=== PATIENT | female | born 1940 | race Caucasian/White ===

== ENCOUNTER 2024-08-15 11:59 | Inpatient (IN) ==
[2024-08-15 12:28] LABS: Basophils # (auto) 0.12 K/uL (0.00-0.20); Basophils % (auto) 0.6 %; Eosinophils # (auto) 0.03 K/uL (0.00-0.50); Eosinophils % (auto) 0.2 %; Hematocrit (blood only) 38.5 % (37.0-47.0); Hemoglobin 12.5 g/dl (12.0-16.0); Immature Granulocytes # (auto) 0.14 K/uL (0.01-0.20); Immature Granulocytes % (auto) 0.7 %; Lymphocytes % (auto) 10.8 %; Mean Corpuscular Hemoglobin 27.7 pg (25.0-34.0); Mean Corpuscular Hgb Conc 32.5 g/dL (32.0-36.0); Mean Corpuscular Volume 85.2 fL (80.0-100.0); Mean Platelet Volume 9.9 fL (9.4-12.4); Monocytes # (auto) 1.02 K/uL (0.11-0.59); Monocytes % (auto) 5.3 %; Neutrophils # (auto) 15.98 K/uL (1.40-6.50); Neutrophils % (auto) 82.4 %; Platelet Count 289 K/uL (130-400); RDW Coefficient of Variation 14.3 % (11.5-14.5); RDW Standard Deviation 43.9 fL (36.4-46.3); Red Blood Count 4.52 M/uL (4.20-5.40); White Blood Count 19.39 K/ul (4.8-10.8)
[2024-08-15 12:40] LABS: Calcium 9.5 mg/dl (8.6-10.3); Potassium 3.6 mmol/L (3.5-5.1)
[2024-08-15] MEDS: KETOROLAC TROMETHAMINE 15 MG/ML VIAL IV ONE (13:24)
[2024-08-15] MEDS: ACETAMINOPHEN 1,000 MG/100 ML VIAL IV STA (13:24)
--- NOTE | 2024-08-15 13:32 | CT Scan Report ---
CT head/brain wo con CLINICAL HISTORY: 83 years-old Female with Fall, trauma. Acute head and neck injury status post fall TECHNIQUE: Multiple axial CT images of the head were obtained without contrast. A dose lowering tech nique was utilized adhering to the principles of ALARA. COMPARISON: CT cervical spine of same day FINDINGS: No acute intracranial hemorrhage, midline shift, intracranial mass, hydrocephalus, territorial ischem ia or abnormal extra-axial collection. Involutional changes with white matter hypodensities compatibl e with chronic microvascular ischemic disease. Chronic-appearing right cerebellar infarcts. The calvarium is intact. The paranasal sinuses, mastoid air cells, and middle ear cavities are clear . IMPRESSION: 1. No acute intracranial abnormality or calvarial fracture. 2. Involutional changes with chronic microvascular ischemic disease. 3. Chronic right cerebellar lacunar infarcts. ACT 112: Negative or not required by law. The above report was generated using voice recognition software. It may contain grammatical, syntax o r spelling errors. Electronically signed by: Jayy Krueger M.D. 08/15/2024 1:31 PM
--- NOTE | 2024-08-15 13:36 | CT Scan Report ---
CT cervical spine wo con CT DOSE: 1331.83 mGy.cm CLINICAL HISTORY: 83 years-old Female with fall, trauma. Acute head and neck injury status post trau ma COMPARISON: Head CT of same day TECHNIQUE: Multiple axial CT images of the cervical spine were obtained without contrast. A dose low ering technique was utilized adhering to the principles of ALARA. FINDINGS: Multilevel changes of the cervical spine including severe disc space narrowing at C3-C4, C4 -C5 and C5-C6 with moderate disc space narrowing at C6-C7. Moderate to severe multilevel facet arthro sis. Multilevel neural foraminal narrowing of the cervical spine, suboptimally assessed by CT. The cervical soft tissues appear unremarkable. The visualized lung apices appear clear. IMPRESSION: No acute cervical spine fracture or subluxation. ACT 112: Negative or not required by law. The above report was generated using voice recognition software. It may contain grammatical, syntax o r spelling errors. Electronically signed by: Jayy Krueger M.D. 08/15/2024 1:34 PM
--- NOTE | 2024-08-15 13:51 | Emergency Department Note ---
Impression & Plan Hip fracture, Alzheimer dementia ED Provider Note NAME: FREDERICK VASQUEZ AGE: 83 SEX: F : 1940 ARRIVES VIA: Ambulance INFORMANT: Patient, ED PROVIDER(S): Rima Mattson MD CHIEF COMPLAINT: Left hip pain HPI: This is an 83-year-old female, history of dementia presenting after someone fell on top of her. Patient notes left hip pain after this. Patient currently demented without significant ability to provide history. She complains of pain and points to her left hip. ROS: Unable to obtain PHYSICAL EXAMINATION: General: Moderate distress due to pain Head: Normocephalic and atraumatic Eyes: Normal inspection, extraocular muscles intact Ear, nose, throat: Normal external exam Neck: Normal range of motion Respiratory: lungs clear to auscultation bilaterally Cardiovascular: Regular rate/rhythm, no murmur GI: soft, nontender, Extremities internally rotated, shortened to left lower extremity Neuro: The patient awake, appropriately conversive, no focal deficits, symmetric faces Skin: Warm, dry, and intact MEDICAL DECISION MAKING: This is an 83-year-old female with history of dementia presenting after someone fell on top of her. Resident at her facility reportedly fell on top of this patient. Unclear LOC as per EMS/long-term staff. Clinically patient has an obvious hip fracture. Will do screening x-ray. Will do a chest x-ray and blood work as patient would like require operative management. -Hip x-ray as Independently interpreted by me reveals a intertrochanteric fracture of the left hip with angulation -Chest Xray independently interpreted by me showing no pneumothorax, focal opacity, or pleural effusions. -Blood reveals a leukocytosis to 19 without clear etiology. Stable electrolytes. -Patient admitted to hospital service under Dr. Lares for admission and operative repair Differential diagnosis: Hip fracture, pubic rami fracture, Diagnostics interpreted by me: ECG: None Cardiac Monitoring: An order was placed for continuous cardiac monitoring. The monitor shows a rate of 76 with sinus rhythm. Past Med/Surg History Problem List (Updated 08/15/24 @ 19:39 by Riam Mattson MD) Alzheimer dementia (Acute) Cerebellar stroke HTN (hypertension) Hip fracture (Acute) Social History Smoking Status: Unknown if ever smoked Hx Alcohol Use: No (unable to obtain) Hx Substance Use: No (unable to obtain) Preferred Language: Latvian Communication Ability: Effective Paragliding Instructor Required: No Beliefs That Will Affect Care: None Current Living Situation: Senior Care Feels Safe at Home: Yes Safety Concerns: Feels Safe At This Time Allergies Allergies Allergy/AdvReac Type Severity Reaction Status Date / Time No Known Allergies Allergy Unverified 08/15/24 14:41 Home Meds Home Medications Medication Instructions Recorded Confirmed Lexapro 12.5 mg PO DAILY 08/15/24 08/15/24 Milk of Magnesia 30 ml PO DAILY PRN Constipation 08/15/24 08/15/24 acetaminophen 325 mg tablet 650 mg PO Q6H PRN Fever 08/15/24 08/15/24 (Tylenol) acetaminophen 325 mg tablet 650 mg PO Q6H PRN Pain 08/15/24 08/15/24 (Tylenol) acetaminophen 500 mg tablet 1,000 mg PO TID 08/15/24 08/15/24 amlodipine 2.5 mg tablet 2.5 mg PO DAILY 08/15/24 08/15/24 aspirin 81 mg tablet,delayed 81 mg PO DAILY 08/15/24 08/15/24 release edxhgbi-yqrztnqowsgzw-txezfehl 250 2 tab PO Q8H PRN Headache 08/15/24 08/15/24 mg-250 mg-65 mg tablet (Headache Relief (KHH-azziyovzzrjn-dizeriwi)) bisacodyl 10 mg rectal suppository 10 mg CA DAILY PRN Constipation 08/15/24 08/15/24 cetirizine 10 mg tablet 10 mg PO DAILY 08/15/24 08/15/24 cholecalciferol (vitamin D3) 50 50 mcg PO DAILY 08/15/24 08/15/24 mcg (2,000 unit) tablet cyanocobalamin (vitamin B-12) 500 1,000 mcg PO Q48H 08/15/24 08/15/24 mcg tablet Results & Data (ED) Vital Signs Vital Signs - 24 hr 08/15/24 12:10 08/15/24 12:26 08/15/24 14:34 Temperature 36.7 C Temperature Source Axillary Pulse Rate 75 59 L Pulse Rate [Apical] 67 Respiratory Rate 18 18 Respiratory Effort / Characteristics Non-Labored Spontaneous Respiratory Depth Normal Blood Pressure 159/87 H Blood Pressure [Right Arm] 158/86 H Blood Pressure Mean 111 Blood Pressure Mean [Right Arm] 110 Blood Pressure Position Lying Blood Pressure Position [Right Arm] Lying Pulse Oximetry 96 99 Oxygen Delivery Method Room Air Room Air Sepsis Recent Fever Within 48 Hours No Sepsis New/Unexplained Change in Mental Status No Sepsis Action Taken by Nursing No Action Required Laboratory Data 08/15/24 12:10 08/15/24 12:10 Lab Results 08/15/24 Range/Units 12:10 WBC 19.39 H (4.8-10.8) K/ul RBC 4.52 (4.20-5.40) M/uL Hgb 12.5 (12.0-16.0) g/dl Hct 38.5 (37.0-47.0) % MCV 85.2 (80.0-100.0) fL MCH 27.7 (25.0-34.0) pg MCHC 32.5 (32.0-36.0) g/dL RDW Std Deviation 43.9 (36.4-46.3) fL RDW Coeff of Rajiv 14.3 (11.5-14.5) % Plt Count 289 (130-400) K/uL MPV 9.9 (9.4-12.4) fL Immature Gran % (Auto) 0.7 % Neut % (Auto) 82.4 % Lymph % (Auto) 10.8 % Fannin % (Auto) 5.3 % Eos % (Auto) 0.2 % Baso % (Auto) 0.6 % Neut # (Auto) 15.98 H (1.40-6.50) K/uL Lymph # (Auto) 2.10 (1.20-3.40) K/uL Fannin # (Auto) 1.02 H (0.11-0.59) K/uL Eos # (Auto) 0.03 (0.00-0.50) K/uL Baso # (Auto) 0.12 (0.00-0.20) K/uL Immature Gran # (Auto) 0.14 (0.01-0.20) K/uL Sodium 141 (136-145) mmol/L Potassium 3.6 (3.5-5.1) mmol/L Chloride 106 (98-107) mmol/L Carbon Dioxide 24 (21-32) mmol/L Anion Gap 11 (3-11) BUN 31 H (6-23) mg/dl Creatinine 1.00 (0.6-1.2) mg/dl Est Cr Clr Drug Dosing 39.0 ml/min eGFR 56.25 BUN/Creatinine Ratio 31.0 H (10-20) Glucose 157 H (70-99(Fasting)) mg/dl Calcium 9.5 (8.6-10.3) mg/dl Administered Medications Sodium Chloride (Nss) 1,000 mls @ 80 mls/hr IV .[id number] JODI Stop: 08/16/24 16:14 Last Admin: 08/15/24 18:33 Dose: 80 mls/hr Documented By: TBK Discontinued Medications Acetaminophen (Ofirmev) 1,000 mg in 100 mls @ 400 mls/hr IV NOW STA Stop: 08/15/24 13:29 Last Infusion: 08/15/24 14:47 Dose: Infused Documented By: Admin: 08/15/24 13:24 Dose: 400 mls/hr Documented By: TEE Ketorolac Tromethamine (Ketorolac Tromethamine 15 Mg/Ml Vial) 15 mg IV NOW ONE Stop: 08/15/24 13:16 Last Admin: 08/15/24 13:24 Dose: 15 mg Documented By: TEE Imaging Data Radiologist's Impression: Hip/Pelvis X-Ray 08/15/24 12:06 XR hip LT 2V w pelvis HISTORY: 83 years-old Female fall, hip pain acute left-sided hip pain status post fall COMPARISON: None TECHNIQUE: AP view the pelvis with 2 views of the left hip FINDINGS: Mild osteoarthritis of the hips. There is an acute comminuted, angulated and displaced left proximal femoral fracture which appears to be entirely intertrochanteric. The lesser trochanteric fracture is displaced medially several centimeters. Moderate adjacent soft tissue swelling. IMPRESSION: Acute, angulated and displaced intertrochanteric left femoral fracture. ACT 112: Negative or not required by law. The above report was generated using voice recognition software. It may contain grammatical, syntax or spelling errors. Electronically signed by: Jayy Krueger M.D. 08/15/2024 1:[address] 08/15/24 12:29 CT cervical spine wo con CT DOSE: 1331.83 mGy.cm CLINICAL HISTORY: 83 years-old Female with fall, trauma. Acute head and neck injury status post trauma COMPARISON: Head CT of same day TECHNIQUE: Multiple axial CT images of the cervical spine were obtained without contrast. A dose lowering technique was utilized adhering to the principles of ALARA. FINDINGS: Multilevel changes of the cervical spine including severe disc space narrowing at C3-C4, C4-C5 and C5-C6 with moderate disc space narrowing at C6-C7. Moderate to severe multilevel facet arthrosis. Multilevel neural foraminal narrowing of the cervical spine, suboptimally assessed by CT. The cervical soft tissues appear unremarkable. The visualized lung apices appear clear. IMPRESSION: No acute cervical spine fracture or subluxation. ACT 112: Negative or not required by law. The above report was generated using voice recognition software. It may contain grammatical, syntax or spelling errors. Electronically signed by: Jayy Krueger M.D. 08/15/2024 1:34 PM Chest X-Ray 08/15/24 12:29 XR chest 1V portable HISTORY: 83 years-old Female Screening acute chest trauma status post fall COMPARISON: CT cervical spine of same day TECHNIQUE: AP view the chest FINDINGS: Cardiac silhouette is enlarged. Mild left hemidiaphragmatic elevation with linear left basilar atelectasis versus scarring. Mild coarsening of the interstitium is likely chronic. No pneumothorax, large pleural effusion or overt pulmonary edema. Old calcified granuloma of the right lung base. Right axillary surgical clips. Chronic appearing fractures of the lateral left second through fourth ribs with age-indeterminate fracture of the lateral left fifth rib. IMPRESSION: 1. Likely chronic upper lateral left rib fractures with age-indeterminate mildly displaced lateral left fifth rib fracture. Correlate with point tenderness. 2. No pneumothorax. 3. Mild left basilar atelectasis. ACT 112: Negative or not required by law. The above report was generated using voice recognition software. It may contain grammatical, syntax or spelling errors. Electronically signed by: Jayy Krueger M.D. 08/15/2024 2:[address] 08/15/24 12:29 CT head/brain wo con CLINICAL HISTORY: 83 years-old Female with Fall, trauma. Acute head and neck injury status post fall TECHNIQUE: Multiple axial CT images of the head were obtained without contrast. A dose lowering technique was utilized adhering to the principles of ALARA. COMPARISON: CT cervical spine of same day FINDINGS: No acute intracranial hemorrhage, midline shift, intracranial mass, hydrocephalus, territorial ischemia or abnormal extra-axial collection. Involutional changes with white matter hypodensities compatible with chronic microvascular ischemic disease. Chronic-appearing right cerebellar infarcts. The calvarium is intact. The paranasal sinuses, mastoid air cells, and middle ear cavities are clear. IMPRESSION: 1. No acute intracranial abnormality or calvarial fracture. 2. Involutional changes with chronic microvascular ischemic disease. 3. Chronic right cerebellar lacunar infarcts. ACT 112: Negative or not required by law. The above report was generated using voice recognition software. It may contain grammatical, syntax or spelling errors. Electronically signed by: Jayy Krueger M.D. 08/15/2024 1:31 PM Discharge Plan Visit Data Chief Complaint: Fall Stated Complaint: FALL, L HIP PAIN ED Provider: Rima Mattson Discharge Problem: Hip fracture, Alzheimer dementia Patient Disposition: Admitted As Inpatient Discharge Instructions Interventions: ED Discharge Assessment Last Done: 08/15/24 16:43
--- NOTE | 2024-08-15 14:02 | XRay Report ---
XR chest 1V portable HISTORY: 83 years-old Female Screening acute chest trauma status post fall COMPARISON: CT cervical spine of same day TECHNIQUE: AP view the chest FINDINGS: Cardiac silhouette is enlarged. Mild left hemidiaphragmatic elevation with linear left basilar atelec tasis versus scarring. Mild coarsening of the interstitium is likely chronic. No pneumothorax, large pleural effusion or overt pulmonary edema. Old calcified granuloma of the right lung base. Right axil jayesh surgical clips. Chronic appearing fractures of the lateral left second through fourth ribs with age-indeterminate fracture of the lateral left fifth rib. IMPRESSION: 1. Likely chronic upper lateral left rib fractures with age-indeterminate mildly displaced lateral le ft fifth rib fracture. Correlate with point tenderness. 2. No pneumothorax. 3. Mild left basilar atelectasis. ACT 112: Negative or not required by law. The above report was generated using voice recognition software. It may contain grammatical, syntax o r spelling errors. Electronically signed by: Jayy Krueger M.D. 08/15/2024 2:00 PM
--- NOTE | 2024-08-15 15:22 | History & Physical Report ---
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 Discussed with family RCRI approximate 6% risk of mortality due to the history of cerebrovascular disease, and no history of ischemia/CHF/insulin treatment/creatinine. 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 (2) HTN (hypertension): Plan: Continue amlodipine (3) Cerebellar stroke: Plan: History of cerebellar stroke Noted incidentally during Alzheimer's workup. Continued on aspirin daily Patient was previously on a statin these were discontinued reportedly due to Alzheimer's several years ago (4) Alzheimer dementia: Plan: Surrogate decision maker would be patient's son Baron available at [phone]. Patient's is available at [phone], but requested decisions to be made by patient's son Baron or Sister Ann. Sister Ann is available [phone]. Patient's daughter Shani is available at [phone] DNR/DNI confirmed on admission with patient's daughter Shani Plan DVT prophylaxis: SCDs pending surgical evaluation Diet: N.p.o., IV FM CODE STATUS: DNR/DNI Disposition: MSO History of Present Illness Primary Care Provider: Theresa Macias at [facility] Marie is an 83-year-old female with a history of dementia who is not oriented to place, year, and is unable to give any meaningful history due to dementia. She presented from [facility] after another resident reportedly fell on top of her and patient had immediately pain and inability to stand on her left leg. Hip x-ray shows intertrochanteric left hip fracture History reviewed from Theresa bunch documentation. Has a history of hypertension, dementia, hyperlipidemia. She has an amlodipine for blood pressure. She takes aspirin 81 mg daily for history of cerebellar stroke. Takes Lexapro 12.5 mg once daily. She is not on any blood thinners. No history of CHF or heart disease. Discussed her care with her Cristina who currently lives in [place]. To his knowledge Castillo is generally independent without a walker or cane, but notes that the best contact he would know her best is her son Baron and Sister Ann. Son Baron is available at [phone], Sister Ann who is a nurse that lives nearby is at [phone]. Both numbers called, voicemail left however no answer at either number. Did discuss CODE STATUS with patient's Cristina, he notes that he does not feel comfortable making a decision as her son Baron, daughter Shani, or sister Ann would know her wishes much better and provided an additional number for patient's daughter [phone]. Voicemail left with each contact. Per patient's family there and in discussion with Theresa another resident had fall on top of Marie, Marie was immediately unable to bear weight on her left leg. Did not lose consciousness or hit her head. Was sent immediately to the hospital for evaluation. At bedside Marie reports that she is not sure where she is but is not in any distress and has no questions. She denies pain until she tries to move in the bed. She denies chest pain, chest pressure, shortness of breath, difficulty breathing, lightheadedness, dizziness No known history of heart disease, NC, CKD, DM, blood clots. Medical History: Reviewed Medications: Reviewed Surgical History: Reviewed Family history: Reviewed Allergies: Reviewed Social History: Former smoker. No recent alcohol use Code Status: DNR/DNI Daughter Shani called back ~1550hrs - Normally ambulatory, but with fall 1 month ago with rib fxr. Had some knee pain at the time, but is normally able to ambulate independently without a cane/walker. - Cognitively has Alzheimers. Not oriented to place, year at baseline. Recognizes family, but cannot tell their names all of the time. - No NC, no CKD, no DM. Had an occult stroke on imaging she had no symptoms from at the time, started aspirin daily at that time. Allergies Allergy/AdvReac Type Severity Reaction Status Date / Time No Known Allergies Allergy Unverified 08/15/24 14:41 Home Medications Medication Instructions Recorded Confirmed Type Lexapro 12.5 mg PO DAILY 08/15/24 08/15/24 History Milk of Magnesia 30 ml PO DAILY PRN Constipation 08/15/24 08/15/24 History acetaminophen 325 mg tablet 650 mg PO Q6H PRN Fever 08/15/24 08/15/24 History (Tylenol) acetaminophen 325 mg tablet 650 mg PO Q6H PRN Pain 08/15/24 08/15/24 History (Tylenol) acetaminophen 500 mg tablet 1,000 mg PO TID 08/15/24 08/15/24 History amlodipine 2.5 mg tablet 2.5 mg PO DAILY 08/15/24 08/15/24 History aspirin 81 mg tablet,delayed 81 mg PO DAILY 08/15/24 08/15/24 History release ghnllhf-usclebdviplmp-fqruhmbs 250 2 tab PO Q8H PRN Headache 08/15/24 08/15/24 History mg-250 mg-65 mg tablet (Headache Relief (HJT-aqwicrddkoie-hjjasddr)) bisacodyl 10 mg rectal suppository 10 mg SD DAILY PRN Constipation 08/15/24 08/15/24 History cetirizine 10 mg tablet 10 mg PO DAILY 08/15/24 08/15/24 History cholecalciferol (vitamin D3) 50 50 mcg PO DAILY 08/15/24 08/15/24 History mcg (2,000 unit) tablet cyanocobalamin (vitamin B-12) 500 1,000 mcg PO Q48H 08/15/24 08/15/24 History mcg tablet Past Med/Surg History Problem List (Updated 08/15/24 @ 15:59 by Luis Carlos Lares MD) Alzheimer dementia Cerebellar stroke HTN (hypertension) Hip fracture Social History Smoking Status: Unknown if ever smoked Hx Alcohol Use: No (unable to obtain) Hx Substance Use: No (unable to obtain) Preferred Language: Macedonian Communication Ability: Effective Capacity Planning Engineer Required: No Beliefs That Will Affect Care: None Current Living Situation: Half-Way Feels Safe at Home: Yes Physical Exam Physical Exam: General: Patient is oriented to name only. History limited by dementia HEENT: Atraumatic, normocephalic. Vision and hearing grossly intact Pulm: CTAB A&P. -wheezes, -rales, -rhonchi. Symmetrical chest rise. No increased work of breathing. No respiratory distress. Cardiac: RRR, -mrg. Radial pulses intact and symmetrical. Abdominal: Nontender, nondistended, soft. BS present. Extremities: Left leg shortened and externally rotated. Sensation soft touch in feet bilaterally, ankle dorsi/plantarflexion 5/5 bilaterally. Cap refill is intact bilaterally Results & Data Results & Data Vital Signs (Past 12 Hours) Vital Signs Temp Pulse Pulse Resp BP BP Pulse Ox 08/15/24 14:34 67 18 158/86 H 99 08/15/24 12:26 59 L 08/15/24 12:10 36.7 C 75 18 159/87 H 96 O2 Del Method 08/15/24 14:34 Room Air 08/15/24 12:26 08/15/24 12:10 Room Air PG Care Time/CCT Total # of Minutes Spent Total Time Spent with Patient: Total time spent is greater than 50% in coordination of care (as documented) at patient's floor/unit and/or counseling patient: Coding Level of Care Code 10442 INT INP/OBS CARE 75MIN Diagnoses Hip fracture S72.009A HTN (hypertension) I10 Cerebellar stroke I63.9 Alzheimer dementia G30.9; F02.80
[2024-08-15] MEDS ORDERED: ONDANSETRON INJ 2 MG/ML 2 ML VIAL IV PRN ×2 (15:57→17:52)
[2024-08-15] MEDS ORDERED: NALOXONE HCL 0.4 MG/1 ML VIAL/CARP IV PRN (16:05)
[2024-08-15] MEDS ORDERED: bisacodyL 10 MG SUPP PR PRN ×2 (16:05→17:52)
[2024-08-15] MEDS ORDERED: POLYETHYLENE (MIRALAX) 17 GM PACK PO PRN (17:52)
[2024-08-15] MEDS: SODIUM CHLORIDE 0.9% 1,000 ML IV SCH (18:33)
[2024-08-15] MEDS: ACETAMINOPHEN 500 MG TAB PO SCH (20:15)
[2024-08-15] MEDS: HYDROmorphone INJ 0.5 MG/0.5 ML SYR IV PRN (21:47)
[2024-08-16 04:36] LABS: Basophils # (auto) 0.05 K/uL (0.00-0.20); Basophils % (auto) 0.4 %; Hemoglobin 9.5 g/dl (12.0-16.0); Immature Granulocytes # (auto) 0.04 K/uL (0.01-0.20); Immature Granulocytes % (auto) 0.3 %; Lymphocytes # (auto) 1.83 K/uL (1.20-3.40); Mean Corpuscular Hgb Conc 32.8 g/dL (32.0-36.0); Mean Corpuscular Volume 85.5 fL (80.0-100.0); Mean Platelet Volume 10.2 fL (9.4-12.4); Monocytes # (auto) 1.12 K/uL (0.11-0.59); Monocytes % (auto) 9.2 %; Neutrophils # (auto) 9.14 K/uL (1.40-6.50); Neutrophils % (auto) 75.1 %; Platelet Count 230 K/uL (130-400); RDW Coefficient of Variation 14.6 % (11.5-14.5); RDW Standard Deviation 45.1 fL (36.4-46.3); Red Blood Count 3.39 M/uL (4.20-5.40); White Blood Count 12.18 K/ul (4.8-10.8)
[2024-08-16 04:45] LABS: BUN Creatinine Ratio 33.8 (10-20); Calcium 8.4 mg/dl (8.6-10.3); Creatinine Clr Calc Pharmacy 48.8 ml/min; Potassium 3.7 mmol/L (3.5-5.1)
--- NOTE | 2024-08-16 06:19 | Orthopedic Consultation ---
Date of Service August 16, 2024 Assessment & Plan (1) Hip fracture: I discussed the diagnosis and treatment options with her at bedside. I have not been able to get a hold of the family yet. She is currently NPO. I do recommend intramedullary nail fixation of the left hip mostly for pain control and for future ambulation. I will discuss this with the family. She is currently on the OR schedule for later this afternoon. History of Present Illness Reason for Consultation: Displaced left intertrochanteric hip fracture. Requesting Physician: . Attending Physician: Luis Carlos Lares MD Marie is a pleasant 83-year-old female who is currently in memory care. She had a fall yesterday at [facility] directly onto her left hip. She was having left hip pain. She was unable to bear weight. She is usually a community ambulator without assistance. She was brought to [facility] emergency room where radiographs demonstrated a displaced left proximal femur fracture. She was admitted to the hospital service. Orthopedics was consulted to evaluate and treat.. Allergies Allergy/AdvReac Type Severity Reaction Status Date / Time No Known Allergies Allergy Unverified 08/15/24 14:41 Home Medications Medication Instructions Recorded Confirmed Type Lexapro 12.5 mg PO DAILY 08/15/24 08/15/24 History Milk of Magnesia 30 ml PO DAILY PRN Constipation 08/15/24 08/15/24 History acetaminophen 325 mg tablet 650 mg PO Q6H PRN Fever 08/15/24 08/15/24 History (Tylenol) acetaminophen 325 mg tablet 650 mg PO Q6H PRN Pain 08/15/24 08/15/24 History (Tylenol) acetaminophen 500 mg tablet 1,000 mg PO TID 08/15/24 08/15/24 History amlodipine 2.5 mg tablet 2.5 mg PO DAILY 08/15/24 08/15/24 History aspirin 81 mg tablet,delayed 81 mg PO DAILY 08/15/24 08/15/24 History release qoommez-mxofcquxzhstj-edgcobii 250 2 tab PO Q8H PRN Headache 08/15/24 08/15/24 History mg-250 mg-65 mg tablet (Headache Relief (TTN-pxwonmjjegkw-bjrjpixp)) bisacodyl 10 mg rectal suppository 10 mg NC DAILY PRN Constipation 08/15/24 08/15/24 History cetirizine 10 mg tablet 10 mg PO DAILY 08/15/24 08/15/24 History cholecalciferol (vitamin D3) 50 50 mcg PO DAILY 08/15/24 08/15/24 History mcg (2,000 unit) tablet cyanocobalamin (vitamin B-12) 500 1,000 mcg PO Q48H 08/15/24 08/15/24 History mcg tablet Past Med/Surg History Problem List Alzheimer dementia (Acute) Cerebellar stroke HTN (hypertension) Hip fracture (Acute) Social History Smoking Status: Unknown if ever smoked Hx Alcohol Use: No (unable to obtain) Hx Substance Use: No (unable to obtain) Preferred Language: Swedish Communication Ability: Effective Supervisor In Charge Required: No Beliefs That Will Affect Care: None Current Living Situation: Shelter Feels Safe at Home: Yes Safety Concerns: Feels Safe At This Time Review of Systems All systems reviewed & are unremarkable except as noted in HPI & below. Physical Exam On physical exam the left hip, the hip is shortened and externally rotated. She has pain with logroll of the left hip.. Constitutional WD/WN, vitals as above Eyes PERRL, conjunctivae normal, anicteric sclerae ENMT external ear and nose normal, oropharynx normal Neck trachea midline, no thyromegaly Respiratory normal respiratory effort Cardiovascular RRR, no murmur, no edema Gastrointestinal (Abdomen) normal bowel sounds, soft, nontender, no hepatosplenomegaly Psychiatric A+Ox3, euthymic affect Results & Data Results & Data Laboratory Results . Diagnostic Findings X-rays of the left hip do show a displaced left intertrochanteric hip fracture with some subtrochanteric extension.. PG Care Time/CCT Total # of Minutes Spent Total Time Spent with Patient: Total time spent is greater than 50% in coordination of care (as documented) at patient's floor/unit and/or counseling patient: Coding Level of Care Code 16430 IN/OBS CONSULT LVL 4,60M (57 - DECISION FOR SURGERY) Diagnoses Hip fracture S72.009A
--- NOTE | 2024-08-16 07:33 | Anesthesiology Consultation ---
Date of Service August 16, 2024 History Surgery Operation Date: 08/16/24 10:25 Proposed Procedures p Left Troch Nail - Darren Contreras, DO Height/Weight Height: 5 ft 5 in Weight: 58.4 kg Allergies Allergy/AdvReac Type Severity Reaction Status Date / Time No Known Allergies Allergy Unverified 08/15/24 14:41 Medications Home Medications Medication Instructions Recorded Confirmed Last Taken Lexapro 12.5 mg PO DAILY 08/15/24 08/15/24 Unknown Milk of Magnesia 30 ml PO DAILY PRN Constipation 08/15/24 08/15/24 Unknown acetaminophen 325 mg tablet 650 mg PO Q6H PRN Fever 08/15/24 08/15/24 Unknown (Tylenol) acetaminophen 325 mg tablet 650 mg PO Q6H PRN Pain 08/15/24 08/15/24 Unknown (Tylenol) acetaminophen 500 mg tablet 1,000 mg PO TID 08/15/24 08/15/24 Unknown amlodipine 2.5 mg tablet 2.5 mg PO DAILY 08/15/24 08/15/24 Unknown aspirin 81 mg tablet,delayed 81 mg PO DAILY 08/15/24 08/15/24 Unknown release rjurtft-gyuitihbvajao-hsxfbvkq 250 2 tab PO Q8H PRN Headache 08/15/24 08/15/24 Unknown mg-250 mg-65 mg tablet (Headache Relief (MKY-ipfkauflpula-tkxjdyza)) bisacodyl 10 mg rectal suppository 10 mg FL DAILY PRN Constipation 08/15/24 08/15/24 Unknown cetirizine 10 mg tablet 10 mg PO DAILY 08/15/24 08/15/24 Unknown cholecalciferol (vitamin D3) 50 50 mcg PO DAILY 08/15/24 08/15/24 Unknown mcg (2,000 unit) tablet cyanocobalamin (vitamin B-12) 500 1,000 mcg PO Q48H 08/15/24 08/15/24 Unknown mcg tablet Active Medications Generic Name Dose Route Start Last Admin Trade Name Freq PRN Reason Stop Dose Admin Acetaminophen 1,000 mg 08/15/24 21:00 08/15/24 20:15 Acetaminophen 500 Mg Tab PO 08/22/24 20:59 Not Given TID JODI Hydromorphone HCl 0.5 mg 08/15/24 15:57 08/15/24 21:47 Hydromorphone Inj 0.5 Mg/0.5 Ml Syr IV 08/29/24 15:56 0.5 mg Q3H PRN Administration breakthrough pain Sodium Chloride 1,000 mls @ 80 mls/hr 08/15/24 16:15 08/16/24 05:26 Nss IV 08/16/24 16:14 80 mls/hr .[id number] JODI Administration Past Medical History Medical History (Updated 08/16/24 @ 07:34 by Shad Jefferson MD) Anemia Alzheimer dementia Cerebellar stroke HTN (hypertension) Past Surgical History Surgical History (Updated 08/16/24 @ 07:34 by Shad Jefferson MD) No pertinent past surgical history Social History Smoking Status: Unknown if ever smoked Hx Alcohol Use: No (unable to obtain) Hx Substance Use: No (unable to obtain) Physical Exam Vital Signs Last Vital Signs Temp 36.7 C 08/16/24 07:24 Pulse 82 08/16/24 07:24 Resp 16 08/16/24 07:24 BP 168/80 H 08/16/24 07:24 Pulse Ox 94 08/16/24 07:24 O2 Del Method Room Air 08/16/24 07:24 Testing Laboratory Results 08/16/24 04:05 08/16/24 04:05 Blood Type B Positive 08/16/24 04:05 Antibody Screen NEGATIVE 08/16/24 04:05 Chest X-Ray Date: 08/15/24 likely old rib fracture - no pneumothorax
[2024-08-16] MEDS: ACETAMINOPHEN 325 MG TAB PO PRN (12:30)
[2024-08-16] MEDS: amLODIPine BESYLATE 5 MG TAB PO SCH (12:30)
--- NOTE | 2024-08-16 13:47 | Hospitalist Progress Note ---
Date of Service August 16, 2024 Assessment & Plan (1) Hip fracture: Plan: Patient presented to the ER on 08/16 after another resident reportedly fell on her at a memory [facility]. Left hip x-ray: angulated intertrochanteric left hip fracture. Cervical spine CT: negative CXR: likely chronic upper lateral left rib fractures w/ age-indeterminate mildly displaced lateral left 5th rib fx. no pneumothorax. mild basilar atelectasis Head CT: negative. Orthopedics consulted, recommendation of surgery to discuss w/ family patient currently NPO RCRI approximate 6% risk of mortality due to the history of cerebrovascular disease, and no history of ischemia/CHF/insulin treatment/creatinine. 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 Pain control w/ Tylenol, Dilaudid Zofran prn for nausea/vomiting Connelly in plae CBC reviewed 08/16: leukocytosis of 12.18 (improved from admission), hgb 9.5 BMP reviewed 08/16: electrolytes, kidney function stable. AM CBC, BMP (2) Alzheimer dementia: Plan: Surrogate decision maker would be patient's son Baron available at [phone]. Patient's is available at [phone], but requested decisions to be made by patient's son Baron or Sister Ann. Sister Ann is available [phone]. Patient's daughter Shani is available at [phone] DNR/DNI confirmed on admission with patient's daughter Shani Plan Chronic conditions: HTN: continue amlodipine Hx of stroke: continue ASA daily DVT prophylaxis: SCDs pending surgical evaluation Diet: N.p.o., IV FM CODE STATUS: DNR/DNI Disposition: MSO Discussed w/ daughter at time of encounter. Admission and Anticipated Discharge Date Admission Date: August 15, 2024 Subjective Patient seen and examined w/ daughter at bedside. Patient pleasantly confused. She denied any pain and appeared comfortable at time of my encounter Physical Exam 2 Constitutional: WD/WN, vitals as above Eyes: PERRL, conjunctivae normal, anicteric sclerae Respiratory: breathing unlabored Cardiovascular: well perfused Psychiatric: pleasantly demented Results & Data Results & Data Vital Signs (Past 12 Hours) Vital Signs Temp Pulse Resp BP Pulse Ox O2 Del Method 08/16/24 08:00 Room Air 08/16/24 07:24 36.7 C 82 16 168/80 H 94 Room Air Laboratory Results 08/16/24 04:05 08/16/24 04:05 PG Care Time/CCT Total # of Minutes Spent Total Time Spent with Patient: Total time spent is greater than 50% in coordination of care (as documented) at patient's floor/unit and/or counseling patient: Coding Level of Care Code 94123 SUB INP/OBS CARE 2/35MIN Diagnoses Hip fracture S72.009A Alzheimer dementia G30.9; F02.80
[2024-08-16] MEDS ORDERED: PROPOFOL IV EMULSION 10 MG/ML 20 ML VIAL IV ONE (14:48)
[2024-08-16] MEDS: ACETAMINOPHEN 500 MG TAB PO SCH (14:49)
[2024-08-16] MEDS ORDERED: fentaNYL citrate PF 100 MCG/2 ML VIAL ONE (14:52)
[2024-08-16] MEDS ORDERED: PHENYLEPHRINE HCL 10 MG/ML VIAL ONE (14:57)
--- NOTE | 2024-08-16 15:17 | History & Physical Bridge Note ---
Date of Service August 16, 2024 History & Physical Bridge Note I have examined the patient, reviewed the History & Physical and in the interval since the performance of the History & Physical I have noted the following changes of clinical significance: no changes noted
[2024-08-16] MEDS ORDERED: LIDOCAINE 2% 2 ML VIAL/AMP(20MG/ML) INFIL ONE (16:13)
[2024-08-16] MEDS ORDERED: ONDANSETRON INJ 2 MG/ML 2 ML VIAL ONE ×2 (16:13→19:06)
[2024-08-16] MEDS ORDERED: ePHEDrine sulfate 50 MG/ML AMP IV PRN (16:17)
[2024-08-16] MEDS ORDERED: ATROPINE SULFATE 0.1 MG/ML 10ML SYR IV PRN (16:17)
[2024-08-16] MEDS ORDERED: ONDANSETRON INJ 2 MG/ML 2 ML VIAL IV PRN (16:17)
--- NOTE | 2024-08-16 17:10 | Electrocardiogram Report ---
Test Reason : Blood Pressure : */* mmHG Vent. Rate : 63 BPM Atrial Rate : 63 BPM P-R Int : 140 ms QRS Dur : 136 ms QT Int : 480 ms P-R-T Axes : 77 50 24 degrees QTcB Int : 491 ms Normal sinus rhythm Right bundle branch block Abnormal ECG No previous ECGs available Confirmed by Ty Paul ([id number]) on 08/16/2024 5:10:11 PM Referred By: [facility] Confirmed By: Ty Paul
[2024-08-16] MEDS: CHOLECALCIFEROL 25 MCG (1000 UNITS) TAB PO SCH (17:18)
[2024-08-16] MEDS: ESCITALOPRAM OXALATE 10 MG TAB PO SCH (17:18)
[2024-08-16] MEDS: CYANOCOBALAMIN (B-12) 500 MCG TABLET PO SCH (17:18)
[2024-08-16] MEDS: CETIRIZINE HCL 10 MG TABLET PO SCH (17:18)
[2024-08-16] MEDS: ceFAZolin 2000MG 2,000 MG/15 ML SYR IV ONE (17:49)
[2024-08-16] MEDS: ceFAZolin 2,000 MG/15 ML IV PUSH IV ONE (17:50)
[2024-08-16] MEDS ORDERED: GLYCOPYRROLATE 0.2 MG/ML VIAL ONE (19:06)
[2024-08-16] MEDS ORDERED: DEXAMETHASONE SOD INJ 4 MG/ML VIAL ONE (19:06)
[2024-08-16] MEDS: BUPIVACAINE/EPINEPHRINE 0.25% 1:200,000 30 ML VIAL ONE (19:32)
[2024-08-16] MEDS: fentaNYL citrate PF 100 MCG/2 ML VIAL IV PRN (20:31)
--- NOTE | 2024-08-16 20:46 | Operative Report ---
PG Post Operative Report Pre & Post Diagnosis Operation Date: 08/16/24 10:25 Pre-Op Diagnosis: Displaced left intertrochanteric hip fracture Post-Op Diagnosis: Displaced left intertrochanteric hip fracture I identified the patient and participated in the time-out.: Yes Procedure Operation Date: 08/16/24 10:25 Actual Procedures p Intramedullary Nail Fixation Left Hip(Left) - Darren Contreras DO Surgeon Darren Contreras DO Shovel Engineer None Estimated Blood Loss 100 Findings Consistent with Post-Op Diagnosis Specimens None Description of Procedure On August 16, 2024 Marie was brought down from her hospital room to the preoperative holding area. The operative extremity identified and signed. She was given a preoperative antibiotic. She was taken back the operating room and placed under general anesthesia on the hospital bed. She was then transferred to the fracture table. The left hip was brought out to traction. Fluoroscopic images were used to try to reduce the hip. I was unable to get acceptable alignment with pure traction. The left hip was then prepped and draped sterile fashion. A timeout was done. The patient and the operative extremity were properly identified. A longitudinal incision was made just over the greater trochanter. Dissection was taken down through the fascia. The fracture site was exposed. A clamp was used to reduce the fracture. Once the fracture was reduced, a guidepin was placed from the tip of the greater trochanter and advanced into the femoral canal. Appropriate placement of the pin was checked on orthogonal fluoroscopic images. A 16mm opening reamer was used to open the femoral canal. A Synthes 10 mm short TFN nail was then impacted into place. Appropriate placement was checked under x-ray. A small lateral incision was made and a cannula was advanced for the helical blade. A guidepin was then placed into the center center position of the femoral head. The lateral cortex was drilled. A helical blade was then impacted into place. The helical blade was then statically locked. A single distal locking screw was then placed. Final fluoroscopic images showed anatomic alignment of the fracture and good alignment of the hardware. The wounds were then irrigated. The deep fascial layer was closed with #1 Vicryl. Deep fat layer was closed with 2-0 Vicryl. Skin was closed with 2-0 Vicryl and zenaida. She was then placed in a soft dressing. She was then extubated and transferred back to a hospital bed. She was taken to the postanesthesia care unit in stable condition. She tolerated the procedure well. I attest to the content of the Intraoperative Record and any orders documented therein. Any exceptions are noted below.
--- NOTE | 2024-08-16 20:57 | Anesthesiology Progress Note ---
Date of Service August 16, 2024 Anesthesia Post Procedure Vital Signs Vital Signs: Temp Pulse Pulse Resp BP BP Pulse Ox 08/16/24 20:50 92 H 19 139/80 93 08/16/24 20:40 87 17 134/84 95 08/16/24 20:30 97.2 F L 95 H 24 124/98 95 08/16/24 20:20 102 H 19 118/73 98 08/16/24 20:10 109 H 21 135/79 98 08/16/24 20:02 97.7 F 106 H 15 139/94 94 08/16/24 15:00 98.4 F 72 18 178/92 H 94 08/16/24 08:00 08/16/24 07:24 98.1 F 82 16 168/80 H 94 O2 Del Method O2 Flow Rate 08/16/24 20:50 Nasal Cannula 2 08/16/24 20:40 Nasal Cannula 2 08/16/24 20:30 Nasal Cannula 2 08/16/24 20:20 Oxymask 5 08/16/24 20:10 Oxymask 5 08/16/24 20:02 Oxymask 5 08/16/24 15:00 Room Air 08/16/24 08:00 Room Air 08/16/24 07:24 Room Air Transfer of Care Handoff Completed per policy Notes Mental Status: alert / awake / arousable and participated in evaluation Patient Amnestic to Procedure: Yes Nausea / Vomiting: adequately controlled Pain: adequately controlled Airway Patency, RR, SpO2: stable & adequate BP & HR: stable & adequate Hydration State: stable & adequate Anesthetic Complications: no major complications apparent and Pt Satisfied with anesthetic care
[2024-08-16] MEDS: fentaNYL citrate PF 100 MCG/2 ML VIAL ONE (21:34)
[2024-08-16] MEDS: APIXABAN 2.5 MG TAB PO SCH (21:40)
[2024-08-16] MEDS: ceFAZolin 2000MG 2,000 MG/15 ML SYR IV SCH (23:18)
--- NOTE | 2024-08-17 06:49 | Orthopedic Progress Note ---
Date of Service August 17, 2024 Assessment & Plan (1) Hip fracture: Overall she is doing as well as expected. She is on Eliquis for DVT prophylaxis. She can be weightbearing as tolerated on the left hip. She will be seen by physical therapy today. She is orthopedically stable for discharge when medically ready. Full orthopedic discharge instructions were placed in the discharge summary. Subjective Marie was seen and examined at bedside this morning. Overall she is doing fairly well. She has advanced dementia and she seemed awake and alert but she was unaware she had her hip fixed yesterday. She had no acute events overnight.. Review of Systems All systems reviewed & are unremarkable except as noted in HPI & below. Physical Exam On physical exam of the left hip, the dressing is clean and dry. Her leg is out full extension.. Results & Data Results & Data Laboratory Results . Diagnostic Findings . PG Care Time/CCT Total # of Minutes Spent Total Time Spent with Patient: Total time spent is greater than 50% in coordination of care (as documented) at patient's floor/unit and/or counseling patient: Coding Level of Care Code 84485 Post Operative Follow-Up Diagnoses Hip fracture S72.009A
--- NOTE | 2024-08-17 07:36 | Fluoroscopy Report ---
FL hip LT 2-3V CLINICAL HISTORY: LT TROCH NAILacute left hip fracture COMPARISON STUDY: Radiograph 08/15/2024 FLUOROSCOPY TIME: 74.8 seconds FLUOROSCOPY IMAGES: 5 EXPOSURE DOSE: 19.20 mGy FINDINGS: Status post placement of an intertrochanteric nail with medullary renee fixating the acute co mminuted proximal femoral fracture. IMPRESSION: Fluoroscopic assistance as above. ACT 112: Negative or not required by law. Electronically signed by: Jayy Krueger M.D. 08/17/2024 7:35 AM
[2024-08-17 12:37] LABS: Basophils # (auto) 0.05 K/uL (0.00-0.20); Basophils % (auto) 0.3 %; Hematocrit (blood only) 23.8 % (37.0-47.0); Hemoglobin 7.6 g/dl (12.0-16.0); Immature Granulocytes # (auto) 0.09 K/uL (0.01-0.20); Immature Granulocytes % (auto) 0.6 %; Lymphocytes # (auto) 1.34 K/uL (1.20-3.40); Lymphocytes % (auto) 8.4 %; Mean Corpuscular Hgb Conc 31.9 g/dL (32.0-36.0); Mean Corpuscular Volume 87.8 fL (80.0-100.0); Mean Platelet Volume 10.4 fL (9.4-12.4); Monocytes # (auto) 1.66 K/uL (0.11-0.59); Monocytes % (auto) 10.4 %; Neutrophils # (auto) 12.75 K/uL (1.40-6.50); Neutrophils % (auto) 80.3 %; Platelet Count 193 K/uL (130-400); RDW Coefficient of Variation 14.7 % (11.5-14.5); RDW Standard Deviation 47.4 fL (36.4-46.3); Red Blood Count 2.71 M/uL (4.20-5.40); White Blood Count 15.89 K/ul (4.8-10.8)
[2024-08-17] MEDS: oxyCODONE HCL IR 5 MG TAB (IMMEDIATE RELEASE) PO PRN (12:41)
[2024-08-17 13:00] LABS: RBC Morphology Unremarkable
[2024-08-17 13:06] LABS: Calcium 8.4 mg/dl (8.6-10.3); Creatinine Clr Calc Pharmacy 37.5 ml/min
--- NOTE | 2024-08-17 14:52 | Hospitalist Progress Note ---
Date of Service August 17, 2024 Assessment & Plan (1) Hip fracture: Plan: Patient presented to the ER on 08/16 after another resident reportedly fell on her at a memory detention. Age-related osteoporosis w/ current pathological fracture, left femur Left hip x-ray: angulated intertrochanteric left hip fracture. Cervical spine CT: negative CXR: likely chronic upper lateral left rib fractures w/ age-indeterminate mildly displaced lateral left 5th rib fx. no pneumothorax. mild basilar atelectasis Head CT: negative. Orthopedics consulted s/p intramedullary nail fixation of left hip with Dr. Contreras on 08/16 Scheulded Tylenol, prn Oxycodone 1st line, IV pain medication for severe pain. Zofran prn for nausea/vomiting Connelly in place CBC reviewed 08/17: hgb 7.6, WBC 15.89, likely post operative BMP reviewed 08/17: electrolytes, kidney function stable. PT/OT recommending rehab, referrals made to [facility]. AM CBC, BMP (2) Alzheimer dementia: Plan: Surrogate decision maker would be patient's son Baron available at [phone]. Patient's is available at [phone], but requested decisions to be made by patient's son Baron or Sister Ann. Sister Ann is available [phone]. Patient's daughter Shani is available at [phone] DNR/DNI confirmed on admission with patient's daughter Shani Plan Chronic conditions: HTN: continue amlodipine Hx of stroke: continue ASA daily DVT prophylaxis: Eliquis BID Diet: N.p.o., IV FM CODE STATUS: DNR/DNI Disposition: MSO Admission and Anticipated Discharge Date Admission Date: August 15, 2024 Subjective Patient seen and examined this morning. Patient demented and tearful at time of encounter. she was complaining about pain around her IV site. Pain medication was given. She was sitting in her chair at time of encounter. Physical Exam Constitutional: WD/WN, vitals as above Eyes: PERRL, conjunctivae normal, anicteric sclerae Respiratory: breathing unlabored Cardiovascular: well perfused Psychiatric: tearful, demented Results & Data Results & Data Vital Signs (Past 12 Hours) Vital Signs Temp Pulse Resp BP BP Pulse Ox O2 Del Method 08/17/24 11:23 36.3 C L 60 18 94/62 L 93 Room Air 08/17/24 08:17 36.6 C 68 18 139/73 93 Nasal Cannula 08/17/24 07:30 Nasal Cannula 08/17/24 04:20 36.6 C 73 18 101/57 L 97 Nasal Cannula O2 Flow Rate 08/17/24 11:23 08/17/24 08:17 2 08/17/24 07:30 2 08/17/24 04:20 2 PG Care Time/CCT Total # of Minutes Spent Total Time Spent with Patient: Total time spent is greater than 50% in coordination of care (as documented) at patient's floor/unit and/or counseling patient: Coding Level of Care Code 29410 SUB INP/OBS CARE 2/35MIN Diagnoses Hip fracture S72.009A Alzheimer dementia G30.9; F02.80
[2024-08-17] MEDS: ACETAMINOPHEN 500 MG TAB PO SCH (18:10)
[2024-08-17] MEDS ORDERED: ASPIRIN 81 MG ECTAB PO SCH (21:00)
--- NOTE | 2024-08-18 06:03 | Orthopedic Progress Note ---
Date of Service August 18, 2024 Assessment & Plan (1) Hip fracture: Overall she is doing as well as expected. She can be weightbearing as tolerated on the left hip. She is on Eliquis for DVT prophylaxis. The nursing staff can change her dressing today. She is orthopedically stable for discharge when medi nataly ready. Full orthopedic discharge instructions were placed in the discharge summary. Subjective Marie was seen and examined at bedside this morning. She seems to be doing okay. She is not having much pain in the left hip. She has no new complaints.. Review of Systems All systems reviewed & are unremarkable except as noted in HPI & below. Physical Exam On physical exam of the left hip, the dressing is clean and dry. Her leg is out full extension.. Results & Data Results & Data Laboratory Results . Diagnostic Findings . PG Care Time/CCT Total # of Minutes Spent Total Time Spent with Patient: Total time spent is greater than 50% in coordination of care (as documented) at patient's floor/unit and/or counseling patient: Coding Level of Care Code 99487 Post Operative Follow-Up Diagnoses Hip fracture S72.009A
[2024-08-18 07:13] LABS: BUN Creatinine Ratio 28.7 (10-20); Calcium 8.3 mg/dl (8.6-10.3); Potassium 3.7 mmol/L (3.5-5.1)
[2024-08-18 07:18] LABS: Hematocrit (blood only) 19.1 % (37.0-47.0); Hemoglobin 6.3 g/dl (12.0-16.0); Mean Corpuscular Hemoglobin 28.1 pg (25.0-34.0); Mean Corpuscular Volume 85.3 fL (80.0-100.0); Mean Platelet Volume 10.6 fL (9.4-12.4); Platelet Count 180 K/uL (130-400); RDW Coefficient of Variation 14.6 % (11.5-14.5); RDW Standard Deviation 45.4 fL (36.4-46.3); Red Blood Count 2.24 M/uL (4.20-5.40); White Blood Count 14.21 K/ul (4.8-10.8)
[2024-08-18 07:30] LABS: Basophils # (auto) 0.07 K/uL (0.00-0.20); Basophils % (auto) 0.5 %; Eosinophils # (auto) 0.07 K/uL (0.00-0.50); Eosinophils % (auto) 0.5 %; Immature Granulocytes # (auto) 0.07 K/uL (0.01-0.20); Immature Granulocytes % (auto) 0.5 %; Lymphocytes # (auto) 2.82 K/uL (1.20-3.40); Lymphocytes % (auto) 19.8 %; Monocytes # (auto) 1.89 K/uL (0.11-0.59); Monocytes % (auto) 13.3 %; Neutrophils # (auto) 9.29 K/uL (1.40-6.50); Neutrophils % (auto) 65.4 %; Polychromasia 1+
[2024-08-18] MEDS ORDERED: SODIUM CHLORIDE 0.9% 50 ML IV PRN (08:12)
[2024-08-18] MEDS ORDERED: SODIUM CHLORIDE 0.9% 100 ML IV PRN (08:12)
--- NOTE | 2024-08-18 10:00 | CT Scan Report ---
CT abd pelvis wo con CLINICAL HISTORY: anemia, recent hip fx/surgery TECHNIQUE: Helical axial images of the abdomen and pelvis were obtained. Automated dose lowering tech niques and/or adjustment according to patient size were utilized for this exam. This exam was perfor med without intravenous contrast. CT DOSE: 867.18 mGy.cm COMPARISON: None available at the time of this dictation. FINDINGS: Exam is limited by patient positioning. Lower chest: Bibasilar atelectasis versus scarring is seen. Liver: Unremarkable. No focal lesions are seen. Gallbladder and biliary tree: No calcified gallstones. Normal caliber wall. No intra- or extrahepatic biliary ductal dilation. Pancreas: Unremarkable, no focal lesions. 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 Adrenals: Unremarkable. Kidneys and ureters: Unremarkable. Bladder: Connelly catheter is seen. Reproductive organs: Unremarkable. Bowel: Diverticulosis is seen without evidence of diverticulitis. Lymph nodes Retroperitoneal: Subcentimeter lymph nodes are noted. Pelvic: Unremarkable. Mesenteric: Unremarkable. Peritoneum: Normal. Vessels: Mild atherosclerosis is seen. Hypodensity the blood pool is seen compatible with history of anemia. Abdominal wall: Unremarkable. Bones: Postsurgical changes of left hip fixation status post fracture. There is surrounding subcutane ous emphysema and soft tissue swelling and a few scattered comminuted fragments. IMPRESSION: Expected postoperative appearance of left hip status post open reduction internal fixation. No eviden ce of intraperitoneal hemorrhage or other acute hemorrhage. ACT 112: Negative or not required by law. Electronically signed by: Derek Springer M.D. 08/18/2024 9:58 AM
[2024-08-18 14:53] LABS: Hematocrit (blood only) 26.2 % (37.0-47.0); Hemoglobin 8.6 g/dl (12.0-16.0); Mean Corpuscular Hemoglobin 27.6 pg (25.0-34.0); Mean Corpuscular Hgb Conc 32.8 g/dL (32.0-36.0); Mean Platelet Volume 10.1 fL (9.4-12.4); Platelet Count 193 K/uL (130-400); RDW Coefficient of Variation 14.6 % (11.5-14.5); Red Blood Count 3.12 M/uL (4.20-5.40)
--- NOTE | 2024-08-18 15:59 | Hospitalist Progress Note ---
Date of Service August 18, 2024 Assessment & Plan (1) Hip fracture: Plan: Patient presented to the ER on 08/16 after another resident reportedly fell on her at a [facility]. Age-related osteoporosis w/ current pathological fracture, left femur Left hip x-ray: angulated intertrochanteric left hip fracture. Cervical spine CT: negative CXR: likely chronic upper lateral left rib fractures w/ age-indeterminate mildly displaced lateral left 5th rib fx. no pneumothorax. mild basilar atelectasis Head CT: negative. Orthopedics consulted - s/p intramedullary nail fixation of left hip with Dr. Contreras on 08/16 Scheduled Tylenol, prn Oxycodone 1st line, IV pain medication for severe pain. Zofran prn for nausea/vomiting Connelly in place CBC reviewed 08/18: hgb 6.3, WBC 15.00 consent for blood obtained from patient's son, Baron via phone 08/18 s/p 1 unit PRBCs w/ improvement of hgb to 8.6 Eliquis currently on hold BMP reviewed 08/17: creatinine 1.50, rise likely from acute anemia. CTAP w/o contrast 08/18 reviewed - no hematoma or hemorrhage PT/OT recommending rehab. AM CBC, BMP (2) Alzheimer dementia: Plan: Surrogate decision maker would be patient's son Baron available at [phone]. Patient's is available at [phone], but requested decisions to be made by patient's son Baron or Sister Ann. Sister Ann is available [phone]. Patient's daughter Shani is available at [phone] DNR/DNI confirmed on admission with patient's daughter Shani Plan Chronic conditions: HTN: continue amlodipine Hx of stroke: continue ASA daily DVT prophylaxis: hold due to anemia Diet: regular CODE STATUS: DNR/DNI Disposition: MSO anticipate discharge within the next few days pending stabilization of anemia. Admission and Anticipated Discharge Date Admission Date: August 15, 2024 Subjective Patient seen and examined this morning. Patient drowsy at time of encounter. She was receiving a unit of blood. She denied any complaints. Physical Exam Constitutional: WD/WN, vitals as above Eyes: PERRL, conjunctivae normal, anicteric sclerae Musculoskeletal: left dressing over incision site in place. No drainage observed through bandage. Results & Data Results & Data Vital Signs (Past 12 Hours) Vital Signs Temp Pulse Pulse Pulse Resp BP BP 08/18/24 14:48 36.7 C 65 16 08/18/24 12:18 36.7 C 61 16 118/69 08/18/24 11:27 37.4 C 60 16 110/52 L 08/18/24 11:18 37.4 C 62 18 108/56 L 08/18/24 10:46 36.5 C 60 15 113/63 08/18/24 10:16 36.8 C 64 14 99/59 L 08/18/24 10:15 36.8 C 64 14 99/59 L 08/18/24 10:01 36.9 C 63 18 97/59 L 08/18/24 09:41 36.3 C L 72 18 105/60 08/18/24 09:21 36.8 C 70 16 92/51 L 08/18/24 07:41 36.5 C 65 18 110/74 08/18/24 07:30 BP Pulse Ox O2 Del Method 08/18/24 14:48 106/62 93 Room Air 08/18/24 12:18 93 08/18/24 11:27 93 Room Air 08/18/24 11:18 94 08/18/24 10:46 93 08/18/24 10:16 93 08/18/24 10:15 93 08/18/24 10:01 92 08/18/24 09:41 94 08/18/24 09:21 95 08/18/24 07:41 92 Room Air 08/18/24 07:30 Room Air PG Care Time/CCT Total # of Minutes Spent Total Time Spent with Patient: Total time spent is greater than 50% in coordination of care (as documented) at patient's floor/unit and/or counseling patient: Coding Level of Care Code 40397 SUB INP/OBS CARE 2/35MIN Diagnoses Hip fracture S72.009A Alzheimer dementia G30.9; F02.80
[2024-08-19 04:44] LABS: Hematocrit (blood only) 23.8 % (37.0-47.0); Hemoglobin 7.9 g/dl (12.0-16.0); Mean Corpuscular Hemoglobin 27.8 pg (25.0-34.0); Mean Corpuscular Hgb Conc 33.2 g/dL (32.0-36.0); Mean Corpuscular Volume 83.8 fL (80.0-100.0); Mean Platelet Volume 9.8 fL (9.4-12.4); Platelet Count 201 K/uL (130-400); RDW Coefficient of Variation 14.8 % (11.5-14.5); RDW Standard Deviation 45.7 fL (36.4-46.3); Red Blood Count 2.84 M/uL (4.20-5.40); White Blood Count 14.04 K/ul (4.8-10.8)
[2024-08-19 05:13] LABS: BUN Creatinine Ratio 32.5 (10-20); Calcium 7.8 mg/dl (8.6-10.3); Creatinine Clr Calc Pharmacy 48.8 ml/min; Potassium 3.7 mmol/L (3.5-5.1)
[2024-08-19 13:12] LABS: Hematocrit (blood only) 27.7 % (37.0-47.0); Mean Corpuscular Hemoglobin 27.4 pg (25.0-34.0); Mean Corpuscular Hgb Conc 32.5 g/dL (32.0-36.0); Mean Corpuscular Volume 84.2 fL (80.0-100.0); Mean Platelet Volume 9.9 fL (9.4-12.4); Platelet Count 258 K/uL (130-400); RDW Standard Deviation 46.2 fL (36.4-46.3); Red Blood Count 3.29 M/uL (4.20-5.40); White Blood Count 13.76 K/ul (4.8-10.8)
--- NOTE | 2024-08-19 14:52 | Hospitalist Progress Note ---
Date of Service August 19, 2024 Assessment & Plan (1) Anemia: Plan: Acute blood loss anemia Patient required 1 unit PRBC's on 08/18 following surgery. CTAP 08/18 without hematoma or hemorrhage Patient placed on Eliquis following surgery, currently on hold. CBC reviewed 08/19: hgb 7.9 this AM w/ improvement to 9.0 in afternoon. Leukocytosis improving (13.76) BMP reviewed 08/19: creatinine 0.80, improved. NORM likely due to anemia, appears to have resolved following PRBC Discussed w/ CM 08/19 that if pt hgb remains stable, she may be discharged to rehab 08/20. AM CBC, BMP (2) HTN (hypertension): Plan: Patient w/ hx of HTN on amlodipine 2.5mg PO daily outpatient. Patient has been normotensive - hypotension throughout hospital stay amlodipine currently on hold, continue to monitor pressures. (3) Hip fracture: Plan: Patient presented to the ER on 08/16 after another resident reportedly fell on her at a [facility]. Age-related osteoporosis w/ current pathological fracture, left femur Left hip x-ray: angulated intertrochanteric left hip fracture. Cervical spine CT: negative CXR: likely chronic upper lateral left rib fractures w/ age-indeterminate mildly displaced lateral left 5th rib fx. no pneumothorax. mild basilar atelectasis Head CT: negative. Orthopedics consulted - s/p intramedullary nail fixation of left hip with Dr. Contreras on 08/16 Scheduled Tylenol, prn Oxycodone 1st line, IV pain medication for severe pain. Zofran prn for nausea/vomiting Connelly in place, void trial 08/19. PT/OT recommending rehab. AM CBC, BMP (4) Alzheimer dementia: Plan: Surrogate decision maker would be patient's son Baron available at [phone]. Patient's is available at [phone], but requested decisions to be made by patient's son Baron or Sister Ann. Sister Ann is available [phone]. Patient's daughter Shani is available at [phone] DNR/DNI confirmed on admission with patient's daughter Shani Plan Chronic conditions: Hx of stroke: continue ASA daily DVT prophylaxis: hold due to anemia Diet: regular CODE STATUS: DNR/DNI Disposition: MSO anticipate discharge within the next few days pending stabilization of anemia. Updated son at bedside 08/19. Admission and Anticipated Discharge Date Admission Date: August 15, 2024 Subjective Patient seen and examined this morning. Patient pleasant at time of encounter. Patient reported no complaints. Son at bedside upon examination this afternoon. Physical Exam Constitutional: WD/WN, vitals as above Eyes: PERRL, conjunctivae normal, anicteric sclerae Respiratory: breathing unlabored Cardiovascular: well perfused Results & Data Results & Data Vital Signs (Past 12 Hours) Vital Signs Temp Pulse Resp BP Pulse Ox O2 Del Method 08/19/24 08:17 36.5 C 62 16 118/65 95 Room Air 08/19/24 07:20 Room Air PG Care Time/CCT Total # of Minutes Spent Total Time Spent with Patient: Total time spent is greater than 50% in coordination of care (as documented) at patient's floor/unit and/or counseling patient: Coding Level of Care Code 53226 SUB INP/OBS CARE 3/50MIN Diagnoses Anemia, unspecified type D64.9 Anemia type: unspecified type Primary hypertension I10 Hypertension type: primary hypertension Hip fracture S72.009A Alzheimer dementia G30.9; F02.80 (1) Anemia Anemia type: unspecified type Qualified Code(s): D64.9 - Anemia, unspecified (2) HTN (hypertension) Hypertension type: primary hypertension Qualified Code(s): I10 - Essential (primary) hypertension
[2024-08-19] MEDS: MAGNESIUM HYDROXIDE SUSP 30 ML UDC PO PRN (15:18)
[2024-08-19] MEDS: MELATONIN 3 MG TAB PO PRN (22:18)
[2024-08-20 07:47] VITALS: BP 164/73; PULSE 78; RESP 18; TEMP 98.1; O2SAT 93
[2024-08-20 08:12] LABS: Basophils # (auto) 0.07 K/uL (0.00-0.20); Basophils % (auto) 0.5 %; Eosinophils # (auto) 0.09 K/uL (0.00-0.50); Eosinophils % (auto) 0.6 %; Hematocrit (blood only) 25.3 % (37.0-47.0); Hemoglobin 8.6 g/dl (12.0-16.0); Immature Granulocytes # (auto) 0.09 K/uL (0.01-0.20); Immature Granulocytes % (auto) 0.6 %; Lymphocytes # (auto) 1.44 K/uL (1.20-3.40); Lymphocytes % (auto) 9.9 %; Mean Corpuscular Hemoglobin 28.4 pg (25.0-34.0); Mean Corpuscular Volume 83.5 fL (80.0-100.0); Monocytes # (auto) 1.57 K/uL (0.11-0.59); Monocytes % (auto) 10.8 %; Neutrophils # (auto) 11.33 K/uL (1.40-6.50); Neutrophils % (auto) 77.6 %; Platelet Count 291 K/uL (130-400); RDW Coefficient of Variation 14.8 % (11.5-14.5); RDW Standard Deviation 44.6 fL (36.4-46.3); Red Blood Count 3.03 M/uL (4.20-5.40); White Blood Count 14.59 K/ul (4.8-10.8)
[2024-08-20 08:37] LABS: Calcium 8.4 mg/dl (8.6-10.3); Potassium 3.9 mmol/L (3.5-5.1)
[2024-08-20 08:43] LABS: BUN Creatinine Ratio 35.7 (10-20); Creatinine Clr Calc Pharmacy 69.7 ml/min
--- NOTE | 2024-08-20 09:17 | Discharge Summary ---
Discharge Summary Date of Service August 20, 2024 Principal Dx & Hospital Course #1 = Principal Diagnosis (1) Anemia: Acute blood loss anemia Patient underwent left hip surgery with Dr. Contreras on 08/16 after another resident reportedly fell on her at the [facility]. following surgery patient had post op drop in hgb to 6.3 1 unit PRBCs given on 08/18 hgb day of discharge 8.6 Eliquis was held following drop in hgb but has been resumed 08/20 recommend to continue this for 2 weeks following surgery. Defer to PCP vs surgeon whether ASA is okay for DVT prophylaxis following this time period. BMP revealed normalization in creatinine which was likely elevated due to anemia. (2) HTN (hypertension): Patient w/ hx of HTN on amlodipine 2.5mg PO daily outpatient. Resumed 08/20 following multiple episodes of HTN. (3) Hip fracture: Patient presented to the ER on 08/16 after another resident reportedly fell on her at a [facility] nursing [facility]. Age-related osteoporosis w/ current pathological fracture, left femur Left hip x-ray: angulated intertrochanteric left hip fracture. Cervical spine CT: negative CXR: likely chronic upper lateral left rib fractures w/ age-indeterminate mildly displaced lateral left 5th rib fx. no pneumothorax. mild basilar atelectasis Head CT: negative. s/p intramedullary nail fixation of left hip with Dr. Contreras on 08/16 she is to follow up in their office in 2-3 weeks Scheduled Tylenol, prn Oxycodone 1st line Jalloh was removed 08/19 but due to confusion regarding urination but due to patient being a 2-3 person assist and increased periods of confusion, nursing requested jalloh be placed back in overnight. once patient regains strength, this can likely be removed at rehab. PT/OT recommending rehab. (4) Alzheimer dementia: Surrogate decision maker would be patient's son Baron available at [phone]. Patient's is available at [phone], but requested decisions to be made by patient's son Baron or Sister Ann. Sister Ann is available [phone]. Patient's daughter Shani is available at [phone] DNR/DNI confirmed on admission with patient's daughter Shani Plan Chronic conditions: Hx of stroke: continue ASA daily Updated son with discharge instructions 08/20. Admission HPI Per Admitting Provider Marie is an 83-year-old female with a history of dementia who is not oriented to place, year, and is unable to give any meaningful history due to dementia. She presented from [facility] after another resident reportedly fell on top of her and patient had immediately pain and inability to stand on her left leg. Hip x-ray shows intertrochanteric left hip fracture History reviewed from [facility] documentation. Has a history of hypertension, dementia, hyperlipidemia. She has an amlodipine for blood pressure. She takes aspirin 81 mg daily for history of cerebellar stroke. Takes Lexapro 12.5 mg once daily. She is not on any blood thinners. No history of CHF or heart disease. Discussed her care with her Cristina who currently lives in [place]. To his knowledge Castillo is generally independent without a walker or cane, but notes that the best contact he would know her best is her son Baron and Sister Ann. Son Baron is available at [phone], Sister Ann who is a nurse that lives nearby is at [phone]. Both numbers called, voicemail left however no answer at either number. Did discuss CODE STATUS with patient's Cristina, he notes that he does not feel comfortable making a decision as her son Baron, daughter Shani, or sister Ann would know her wishes much better and provided an additional number for patient's daughter [phone]. Voicemail left with each contact. Per patient's family there and in discussion with [facility] another resident had fall on top of Marie, Marie was immediately unable to bear weight on her left leg. Did not lose consciousness or hit her head. Was sent immediately to the hospital for evaluation. At bedside Marie reports that she is not sure where she is but is not in any distress and has no questions. She denies pain until she tries to move in the bed. She denies chest pain, chest pressure, shortness of breath, difficulty breathing, lightheadedness, dizziness No known history of heart disease, [place], CKD, DM, blood clots. Medical History: Reviewed Medications: Reviewed Surgical History: Reviewed Family history: Reviewed Allergies: Reviewed Social History: Former smoker. No recent alcohol use Code Status: DNR/DNI Daughter Shani called back ~1550hrs - Normally ambulatory, but with fall 1 month ago with rib fxr. Had some knee pain at the time, but is normally able to ambulate independently without a cane/walker. - Cognitively has Alzheimers. Not oriented to place, year at baseline. Recogniz es family, but cannot tell their names all of the time. - No WA, no CKD, no DM. Had an occult stroke on imaging she had no symptoms from at the time, started aspirin daily at that time. Discharge Exam Constitutional WD/WN, vitals as above Eyes PERRL, conjunctivae normal, anicteric sclerae Respiratory breathing unlabored Cardiovascular well perfused Discharge Plan Discharge Items Patient Disposition: Transfer Inpatient Rehab Fac Reason For Visit: L HIP FXR Discharge Diagnosis: Left Hip fracture Activity: Resume your previous activity Weightbearing: Full weightbearing Non-emergency contact: Primary Care Provider and Surgeon Call non-emergency contact if: you have any medication questions and your symptoms worsen Follow-up/Referrals: Darren Contreras DO [Physician] - Colleen Cardenas [facility] [Primary Care Provider] - Diet: Regular Addtl Attending Provider Instructions: Ms. Hui, You were recently hospitalized due to a hip fracture. Upon discharge you are go ing to a rehab facility to regain your strength prior to returning to your living situation. Please see recommendations below regarding your discharge. 1. Please continue to take Tylenol 1000mg every 8 hours to help with pain. 2. Please use oxycodone every 4 hours for break through pain. (8, 9, 10 on pain scale) 3. Please take Eliquis 2.5mg twice daily for the next 2 weeks. This will prevent blood clots following your surgery. Please discuss further treatment with your PCP or surgeon after the 2 weeks. 3. You may resume your previous medications. 4. Please follow up with your surgeon within 2-3 weeks of discharge. 5. Please follow up with your PCP within 1-2 weeks of discharge. If you develop any worsening pain, dizziness, lightheadedness, chest pain, or shortness of breath please report to the ER for further care. Sincerely, Amanda Rodriguez PA-C Addtl [employer] Software Developer Provider Instructions: ORTHOPEDIC INSTRUCTIONS Hip Fracture Activity and Therapy Recommendations: 1. You were shown a series of exercises in the hospital. Do these exercises three times each day if you are able. 2. Get up and walk several times each day if you are capable. Make sure you have assistance is needed. For the first four weeks, try not to stand or walk for more than one hour at a time. If you do stand or walk for more than one hour, you will not hurt anything, but your leg will likely swell. 3. As you feel comfortable, you may change from the walker or crutches to a cane and then to independent walking if you are able. Please be safe. Medications: 1. Narcotic You will likely be sent from the hospital with the narcotic pain medication that worked best throughout your stay. 2. Eliquis-take Eliquis 2.5 mg twice a day for 6 weeks to help prevent blood clots. 3. Other medications may be given for specific circumstances. If you have any questions, please call the office at [phone]. 4. Resume previous home medications unless otherwise instructed TEDs/Elastic Stockings: The white elastic stockings help limit swelling and prevent blood clots from forming in your legs. The more you wear them, the more they work. Wear them for six weeks. Dressing Care: Zenaida can be open to air as long as the incisions are not draining. If the incisions are draining or if the zenaida are getting caught on your clothes then please cover the zenaida with dry gauze. Change the dressings as necessary to keep the incision as dry as possible Showering: You may shower 5 days from the day of surgery as long as the incisions are not draining. Do not soak the incision. Let soapy water run over the zenaida and pat them dry. Diet: You may resume your previous diet. Things To Watch For: 1. Drainage from the incision site that occurs more than one week after your surgery. 2. Increased redness at the incision site. 3. Fever above 102 degrees Fahrenheit. 4. Unusual chest pain or shortness of breath. 5. Call [facility] at with any of the above problems Follow-Up Visit: Follow-up with Dr. Contreras's office 2-3 weeks after your day of surgery. We will remove your zenaida and answer any questions. Please call the office to set up an appointment for a time that works for you. Pending Studies at Discharge: No Stand-Alone Forms: My [facility] Skilled Items Patient informed of condition?: Yes DNR: Yes Discharge Level of Care: Acute rehab Communicable Disease: No Discharge Prognosis: Improving Lines: None Urinary Catheter: Yes Medications and DC Order Prescriptions: New oxycodone 5 mg Tablet 5 mg PO Q4H PRN (Reason: pain) Qty: 10 0RF Eliquis 2.5 mg Tablet 2.5 mg PO BID Qty: 60 0RF Continued acetaminophen [Tylenol] 325 mg Tablet 650 mg PO Q6H PRN (Reason: Fever) acetaminophen [Tylenol] 325 mg Tablet 650 mg PO Q6H MDD 3000mg/24h PRN (Reason: Pain) cetirizine 10 mg Tablet 10 mg PO DAILY amlodipine 2.5 mg Tablet 2.5 mg PO DAILY aspirin [Aspir-81] 81 mg Tablet,Delayed Release (Dr/Ec) 81 mg PO DAILY acetaminophen [Tylenol Ex Str Rapid Release] 500 mg Tablet 1,000 mg PO TID Rx Instructions: start date 08/15 thru 08/22 cyanocobalamin (vitamin B-12) 500 mcg Tablet 1,000 mcg PO Q48H bisacodyl 10 mg Suppository 10 mg NM DAILY PRN (Reason: Constipation) Rx Instructions: day 4 of no bm Headache Relief (MAM-[id number]) 250-250-65 mg Tablet 2 tab PO Q8H PRN (Reason: Headache) cholecalciferol (vitamin D3) 50 mcg (2,000 unit) Tablet 50 mcg PO DAILY Lexapro 12.5 mg PO DAILY Milk of Magnesia 30 ml PO DAILY PRN (Reason: Constipation) Rx Instructions: day 3 of no bm Discharge Orders: Discharge Order (Routine); Ordered 08/20/24 Ordered By: Amanda Rodriguez Admission Data Admit Date/Time: 08/15/24 15:56 Attending Provider: Lenin Betts Admit Provider: Luis Carlos Lares Primary Care Provider: Colleen Cardenas [place] Other Providers: Colleen Cardenas [facility]; Luis Carlos Lares; Darren Contreras; [facility] Stay Data Consultations 08/15/24 13:54 ED Decision to Admit Stat 08/15/24 15:42 Consult Orthopedic Surgery Routine Procedures Performed Operation Date: 12/09/24 10:25 Actual Procedures p Intramedullary Nail Fixation Left Hip(Left) - Darren Contreras, Diagnostic Imagining Performed 08/15/24 12:29 CT cervical spine wo con Stat CT head/brain wo con Stat 08/16/24 06:41 FL hip LT 2-3V Routine 08/18/24 08:10 CT Abdomen and Pelvis [CT abd pelvis wo con] Urgent Pending Results Patient Have Any Pending Studies at Discharge: No Discharge Instructions Given to Patient (Per Discharging Provider) Ms. Hui, Navjot were recently hospitalized due to a hip fracture. Upon discharge you are going to a rehab facility to regain your strength prior to returning to your living situation. Please see recommendations below regarding your discharge. 1. Please continue to take Tylenol 1000mg every 8 hours to help with pain. 2. Please use oxycodone every 4 hours for break through pain. (8, 9, 10 on pain scale) 3. Please take Eliquis 2.5mg twice daily for the next 2 weeks. This will prevent blood clots following your surgery. Please discuss further treatment with your PCP or surgeon after the 2 weeks. 3. You may resume your previous medications. 4. Please follow up with your surgeon within 2-3 weeks of discharge. 5. Please follow up with your PCP within 1-2 weeks of discharge. If you develop any worsening pain, dizziness, lightheadedness, chest pain, or shortness of breath please report to the ER for further care. Sincerely, Amanda Rodriguez PA-C Total Time Total Time Spent Total Time Spent (In Minutes): 40 Total Time Includes: Examination of the Patient, Discharge Planning and Medication Reconciliation Coding Level of Care Code 24450 INP/OBS DISCH >30 MIN Diagnoses Anemia, unspecified type D64.9 Anemia type: unspecified type Primary hypertension I10 Hypertension type: primary hypertension Hip fracture S72.009A Alzheimer dementia G30.9; F02.80
== END 2024-08-20 15:33 | DRG 481 ==
LOC: ED 11:59 → SUATTDRO 15:56 → 3N 15:56

== ENCOUNTER 2025-08-05 12:35 | Inpatient (IN) ==
[2025-08-05 13:01] LABS: Hematocrit (blood only) 42.3 % (37.0-47.0); Hemoglobin 14.0 g/dL (12.0-16.0); Immature Granulocytes # (auto) 0.10 K/uL (0.01-0.20); Immature Granulocytes % (auto) 0.5 %; Mean Corpuscular Hemoglobin 27.5 pg (25.0-34.0); Mean Corpuscular Volume 82.9 fL (80.0-100.0); Platelet Count 304 K/uL (130-400); RDW Standard Deviation 46.2 fL (36.4-46.3); Red Blood Count 5.10 M/uL (4.20-5.40); White Blood Count 18.23 K/ul (4.8-10.8)
[2025-08-05] MEDS: HYDROmorphone INJ 0.5 MG/0.5 ML SYR IV STA ×2 (13:03→15:30)
[2025-08-05 13:12] LABS: INR 1.0 (0.9-1.1); Partial Thromboplastin Time 24 Seconds (21-31); Prothrombin Time 10.2 Seconds (9.0-12.0)
[2025-08-05] MEDS: OPTIRAY 320 100ml IV ONE (13:12)
[2025-08-05 13:22] LABS: Alanine Aminotransferase 15.0 U/L (7-52); Albumin Globulin Ratio 1.2 (0.9-2); Albumin Level 4.1 gm/dl (3.4-5.0); Alkaline Phosphatase 80.0 U/L (34-104); Anion Gap 11.0 (3-11); Bilirubin,Total 0.7 mg/dl (0.2-1.0); Blood Urea Nitrogen 23.0 mg/dl (6-23); Calcium 9.4 mg/dl (8.6-10.3); Carbon Dioxide 24.0 mmol/L (21-32); Chloride 106.0 mmol/L (98-107); Creatinine Clr Calc Pharmacy 38.8 ml/min; Globulin 3.5 gm/dl (2.5-4.0); Glucose 115.0 mg/dl (70-99(Fasting)); Lipase 14.0 U/L (11-82); Potassium 3.9 mmol/L (3.5-5.1); Sodium 141.0 mmol/L (136-145); Total Protein 7.6 gm/dl (6.0-8.3)
--- NOTE | 2025-08-05 13:23 | XRay Report ---
XR chest 1V portable CLINICAL HISTORY: Trauma COMPARISON STUDY: 08/15/2024 FINDINGS: Stable cardiomegaly with pulmonary vascular congestion. Inspiration is shallow. There is in creased stranding at the left lung base. No other consolidation or pleural effusion. No pneumothorax. Skinfold artifact overlies the right lung. There are a few left-sided rib fractures of uncertain chr onicity. IMPRESSION: 1. Left-sided rib fractures of uncertain chronicity with no pneumothorax seen. 2. Atelectasis versus pulmonary consolidation at the left lung base. ACT 112: Negative or not required by law. Electronically signed by: Baron Sanches M.D. 08/05/2025 1:21 PM
--- NOTE | 2025-08-05 13:24 | XRay Report ---
XR hip RT 2V w pelvis CLINICAL HISTORY: hip fx COMPARISON: 08/15/2024 FINDINGS: Left femoral gamma nail is partially visualized and there is an old fracture proximal left femur. There is an acute mildly displaced mildly impacted fracture at the right femoral neck. No oth er fracture or dislocation seen. IMPRESSION: Acute fracture right femoral neck. ACT 112: Negative or not required by law. Electronically signed by: Baron Sanches M.D. 08/05/2025 1:22 PM
--- NOTE | 2025-08-05 13:29 | CT Scan Report ---
CT head/brain wo con CLINICAL HISTORY: dementia, fall at custodial. TECHNIQUE: Multiple axial CT images of the head were obtained without contrast. A dose lowering tech nique was utilized adhering to the principles of ALARA. COMPARISON: 08/15/2024 FINDINGS: There is stable mild prominence of the ventricles out of proportion to sulci, cerebral atro phy versus normal pressure hydrocephalus. Stable moderate chronic small vessel ischemic change. Stabl e small old infarction right cerebellum. No intracranial hemorrhage seen. No mass effect or midline s hift. No skull fracture seen. Visualized paranasal sinuses and mastoid air cells are clear. IMPRESSION: No acute findings. ACT 112: Negative or not required by law. The above report was generated using voice recognition software. It may contain grammatical, syntax o r spelling errors. Electronically signed by: Baron Sanches M.D. 08/05/2025 1:27 PM
[2025-08-05 13:45] LABS: Chlamydia pneumoniae PCR Not Detected (NotDetected); Coronavirus 229E PCR Not Detected (NotDetected); Coronavirus CoV-2 (COVID19)PCR Not Detected (NotDetected); Coronavirus HKU1 PCR Not Detected (NotDetected); Coronavirus NL63 PCR Not Detected (NotDetected); Coronavirus OC43PCR Not Detected (NotDetected); Human Metapneumovirus PCR Not Detected (NotDetected); Parainfluenza Virus 1 PCR Not Detected (NotDetected); Parainfluenza Virus 2 PCR Not Detected (NotDetected); Parainfluenza Virus 3 PCR Not Detected (NotDetected); Parainfluenza Virus 4 PCR Not Detected (NotDetected); Respiratory Syncytial VirusPCR Not Detected (NotDetected); Rhinovirus/Enterovirus PCR Not Detected (NotDetected)
--- NOTE | 2025-08-05 13:50 | CT Scan Report ---
CT SCAN OF THE CHEST WITH IV CONTRAST CLINICAL HISTORY: Trauma. Hypoxia. COMPARISON STUDY: Chest x-ray dated 08/05/2025. Abdominal CT dated 08/18/2024. TECHNIQUE: Following the IV administration of 93 cc of Optiray 320, CT scan of the thorax was perform ed from the thoracic inlet to the upper abdomen. Images are reviewed in the axial, sagittal, and kristian nal planes. IV contrast was administered without complication. A dose lowering technique was utilize d adhering to the principles of ALARA. The examination is degraded by motion artifact, as well as by streak artifact from the arms which could not be elevated above the chest. CT DOSE: 921.15 mGy.cm FINDINGS: Thyroid: Imaged portions of the thyroid gland are normal in size and attenuation. Thoracic aorta: There is atherosclerotic calcification of the thoracic aorta, which is normal in storm abe and demonstrates standard 3-vessel arch anatomy. No dissection is seen. 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 This has been seen on prior chest x-rays . Pulmonary vasculature: The main pulmonary arteries appear dilated suggesting pulmonary artery hyperte nsion. There are no filling defects identified in the central pulmonary vessels to indicate pulmonary embolus. Note that this examination was not protocoled for evaluation of the pulmonary arteries. Heart: The heart is enlarged and without pericardial effusion. There is coronary artery atheroscleros is. Lungs and pleural spaces: Evaluation of the lung parenchyma is degraded by motion artifact. The trach ea and central airways are clear. No pneumothorax is seen. There is elevation of the left diaphragm a nd dense consolidation at the left lung base which is similar to previous. This likely represents ate lectasis. Foci of scarring/atelectasis are seen throughout the right lung. Diffuse interlobular septa l thickening is observed. Mediastinum: There is no mediastinal hematoma. Subcentimeter mediastinal lymph nodes are not patholog ically enlarged by size criteria. Lizzy: Clear. Axillae: There is no axillary lymphadenopathy. Upper abdomen: Partially visualized upper abdominal viscera is within normal limits. Skeletal structures: The skeletal structures are osteopenic. There are subacute/healing fractures of the right anterolateral 4th and 5th ribs. There are also subacute/healing fractures of the right post erior 9th through 11th ribs. Chronic/healed rib fractures are noted on the left. Degenerative change and mild kyphoscoliosis is noted in the thoracic spine. Arthritic change is seen in the shoulders. No lytic or blastic bony lesions are seen. IMPRESSION: 1. There are subacute/healing right-sided rib fractures as above. 2. Cardiomegaly with intralobular septal thickening. This could represent acute versus chronic conges tive change and clinical correlation will be required. 3. There is elevation of the left hemidiaphragm with chronic dependent consolidation at the left lung base. This likely represents atelectasis. Correlate clinically. 4. 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 This has been seen on prior chest x- rays. 5. Additional findings as above. ACT 112: Negative or not required by law. Electronically signed by: Hernán Bland M.D. 08/05/2025 1:49 PM
--- NOTE | 2025-08-05 14:29 | Emergency Department Note ---
Impression & Plan Hip fracture, Hypoxia, Fall ED Provider Note NAME: FREDERICK VASQUEZ AGE: 84 SEX: F : 1940 ARRIVES VIA: Ambulance INFORMANT: Patient, ED PROVIDER(S): Rima Mattson MD CHIEF COMPLAINT: Trauma alert HPI: This is an 84-year-old presenting as a trauma alert. Patient had a fall at [facility] today. It was unwitnessed fall. She was found by EMS to be hypoxic to 83%. No reported symptoms of cough, fever for patient. Patient was hypertensive during transportation and crying. Patient reports pain to her hip at this time. She has a history of dementia and cannot provide further history. She otherwise does have ROS: Unable to obtain PHYSICAL EXAMINATION: Primary Survey Airway: Intact Breathing: Normal, breath sounds equal bilaterally Circulation: Skin warm, distal pulses 2+ Disability Pupils: Equal and reactive to light GCS: 15, Motor Function: Moves all extremities. Sensory: No deficits Secondary Survey GEN: Well developed and well-nourished HEAD: Normal cephalic atraumatic EYES: Pupils round reactive to light, conjunctiva clear, extraocular movements intact, no raccoons eyes ENT: no krause's sign, nares patent, oropharynx clear NECK: No JVD, midline trachea HEART: Regular rate and rhythm LUNGS: Clear to auscultation bilaterally. CHEST: Chest wall non-tender, no bruising/deformity BACK: Nontender ABD: soft, non-tender, no rebound or guarding, PELVIS: Stable to rock, right hip pain to palpation/movement EXT: 2+ global pulses, right hip pain with movement NEURO: CNII-XII grossly intact, no sensory deficits MEDICAL DECISION MAKING: This is a 89-year-old female presenting as a trauma alert. Clinically patient does not have external signs of trauma aside from pain at the right hip. Consider hip fracture from fall. Patient is hypoxic otherwise raising concern for pneumothorax versus rib fracture. Chest Xray independently interpreted by me showing no pneumothorax, focal opacity, or pleural effusions. -Pelvic x-ray reveals a right femoral neck fracture, upon my independent interpretation -Patient CT head unrevealing of intracranial hemorrhage. -CT chest reveals subacute/healing right rib fractures Otherwise chronic noted on the CT including cardiomegaly with interlobular septal thickening, elevation of left hemidiaphragm, calcified ductus diverticulum -Discussed with patient's daughter. plan to be for operative management if less pain overall for patient correction. Would also be comfortable without operative management if indicated - [facility] Differential diagnosis: Head fracture, intracranial hemorrhage, rib fracture, pneumothorax Independent History obtained from: Daughter Diagnostics interpreted by me: ECG: None Cardiac Monitoring: An order was placed for continuous cardiac monitoring. The monitor shows a rate of 107 with sinus rhythm. Past Med/Surg History Problem List (Updated 08/06/25 @ 07:10 by Rima Mattson MD) Hypoxia (Acute) Fall (Acute) Femur fracture, right Hip fracture (Acute) Medical History Anemia Alzheimer dementia Cerebellar stroke HTN (hypertension) Surgical History No pertinent past surgical history Social History Smoking Status: Former smoker Second Hand Exposure: No; Do You Dip or Chew Tobacco: No; Hx Alcohol Use: No Hx Substance Use: No Preferred Language: Chinese Communication Ability: Impaired Insurance Account Assistant Required: No Beliefs That Will Affect Care: None Current Living Situation: Custodial Current Living Situation Comment: [facility] Other Information That Helps Us Care for You: No Feels Safe at Home: Yes Assistive Devices: Oxygen - Continuous and Walker Allergies Allergies Allergy/AdvReac Type Severity Reaction Status Date / Time No Known Allergies Allergy Unverified 08/15/24 14:41 Home Meds Home Medications Medication Instructions Recorded Confirmed Milk of Magnesia 30 ml PO DAILY PRN Constipation 08/15/24 08/05/25 amlodipine 2.5 mg tablet 2.5 mg PO DAILY 08/15/24 08/05/25 aspirin 81 mg tablet,delayed 81 mg PO DAILY 08/15/24 08/05/25 release pxickjh-vopquohnjkrck-nyofytgz 250 2 tab PO Q8H PRN Headache 08/15/24 08/05/25 mg-250 mg-65 mg tablet (Headache Relief (SRW-wozyorkuveen-ccwcyzjq)) bisacodyl 10 mg rectal suppository 10 mg [place] DAILY PRN Constipation 08/15/24 08/05/25 cetirizine 10 mg tablet 10 mg PO DAILY 08/15/24 08/05/25 cholecalciferol (vitamin D3) 50 50 mcg PO DAILY 08/15/24 08/05/25 mcg (2,000 unit) tablet diclofenac sodium 1 % topical gel 4 g topical QID 08/05/25 08/05/25 sertraline 150 mg capsule 150 mg PO PM 08/05/25 08/05/25 Results & Data (ED) Vital Signs Vital Signs - 24 hr 08/05/25 12:23 08/05/25 12:23 08/05/25 12:33 Temperature 36.8 C 36.6 C Temperature Source Oral Pulse Rate 92 H 98 H Pulse Rate [Apical] Pulse Rate from SpO2 Sensor Pulse Rhythm [Apical] Pulse Strength [Apical] Respiratory Rate 19 26 H Respiratory Effort / Characteristics Non-Labored Spontaneous Respiratory Depth Normal Respiratory Pattern Blood Pressure 154/120 H 154/120 H Blood Pressure [Right Arm] Blood Pressure Mean 131 Blood Pressure Mean [Right Arm] Pulse Oximetry 83 L 83 L 91 Oxygen Delivery Method Room Air Nasal Cannula Nasal Cannula Oxygen Flow Rate 5 5 Sepsis Recent Fever Within 48 Hours No Sepsis New/Unexplained Change in Mental Status Yes Sepsis Action Taken by Nursing No Action Required 08/05/25 12:48 08/05/25 12:51 08/05/25 12:59 Temperature Temperature Source Pulse Rate 90 97 H 94 H Pulse Rate [Apical] Pulse Rate from SpO2 Sensor 91 H 95 H Pulse Rhythm [Apical] Pulse Strength [Apical] Respiratory Rate 25 H 28 H Respiratory Effort / Characteristics Respiratory Depth Respiratory Pattern Blood Pressure Blood Pressure [Right Arm] Blood Pressure Mean Blood Pressure Mean [Right Arm] Pulse Oximetry 91 90 Oxygen Delivery Method Oxygen Flow Rate Sepsis Recent Fever Within 48 Hours Sepsis New/Unexplained Change in Mental Status Sepsis Action Taken by Nursing 08/05/25 13:00 08/05/25 13:01 08/05/25 13:01 Temperature Temperature Source Pulse Rate 96 H Pulse Rate [Apical] Pulse Rate from SpO2 Sensor 98 H Pulse Rhythm [Apical] Pulse Strength [Apical] Respiratory Rate 21 Respiratory Effort / Characteristics Respiratory Depth Respiratory Pattern Blood Pressure 171/97 H 171/97 H Blood Pressure [Right Arm] Blood Pressure Mean 128 128 Blood Pressure Mean [Right Arm] Pulse Oximetry 92 Oxygen Delivery Method Oxygen Flow Rate Sepsis Recent Fever Within 48 Hours Sepsis New/Unexplained Change in Mental Status Sepsis Action Taken by Nursing 08/05/25 13:01 08/05/25 13:01 08/05/25 13:01 Temperature Temperature Source Pulse Rate Pulse Rate [Apical] Pulse Rate from SpO2 Sensor Pulse Rhythm [Apical] Pulse Strength [Apical] Respiratory Rate Respiratory Effort / Characteristics Respiratory Depth Respiratory Pattern Blood Pressure 171/97 H 171/97 H 171/97 H Blood Pressure [Right Arm] Blood Pressure Mean 128 128 128 Blood Pressure Mean [Right Arm] Pulse Oximetry Oxygen Delivery Method Oxygen Flow Rate Sepsis Recent Fever Within 48 Hours Sepsis New/Unexplained Change in Mental Status Sepsis Action Taken by Nursing 08/05/25 13:18 08/05/25 13:19 08/05/25 13:20 Temperature Temperature Source Pulse Rate 102 H Pulse Rate [Apical] Pulse Rate from SpO2 Sensor 101 H Pulse Rhythm [Apical] Pulse Strength [Apical] Respiratory Rate 19 Respiratory Effort / Characteristics Respiratory Depth Respiratory Pattern Blood Pressure 178/129 H 165/115 H Blood Pressure [Right Arm] Blood Pressure Mean 160 124 Blood Pressure Mean [Right Arm] Pulse Oximetry 96 Oxygen Delivery Method Oxymask Oxymask Oxygen Flow Rate 6 Sepsis Recent Fever Within 48 Hours Sepsis New/Unexplained Change in Mental Status Sepsis Action Taken by Nursing 08/05/25 13:20 08/05/25 13:21 08/05/25 13:30 Temperature Temperature Source Pulse Rate 94 H Pulse Rate [Apical] Pulse Rate from SpO2 Sensor 93 H Pulse Rhythm [Apical] Pulse Strength [Apical] Respiratory Rate 17 Respiratory Effort / Characteristics Respiratory Depth Respiratory Pattern Blood Pressure 165/115 H 163/104 H Blood Pressure [Right Arm] Blood Pressure Mean 124 113 Blood Pressure Mean [Right Arm] Pulse Oximetry 96 Oxygen Delivery Method Oxygen Flow Rate Sepsis Recent Fever Within 48 Hours Sepsis New/Unexplained Change in Mental Status Sepsis Action Taken by Nursing 08/05/25 13:30 08/05/25 13:30 08/05/25 13:30 Temperature Temperature Source Pulse Rate Pulse Rate [Apical] Pulse Rate from SpO2 Sensor Pulse Rhythm [Apical] Pulse Strength [Apical] Respiratory Rate Respiratory Effort / Characteristics Respiratory Depth Respiratory Pattern Blood Pressure 163/104 H 163/104 H 163/104 H Blood Pressure [Right Arm] Blood Pressure Mean 113 113 113 Blood Pressure Mean [Right Arm] Pulse Oximetry Oxygen Delivery Method Oxygen Flow Rate Sepsis Recent Fever Within 48 Hours Sepsis New/Unexplained Change in Mental Status Sepsis Action Taken by Nursing 08/05/25 13:30 08/05/25 13:30 08/05/25 13:39 Temperature Temperature Source Pulse Rate 100 H 102 H Pulse Rate [Apical] Pulse Rate from SpO2 Sensor 89 102 H Pulse Rhythm [Apical] Pulse Strength [Apical] Respiratory Rate 18 18 Respiratory Effort / Characteristics Respiratory Depth Respiratory Pattern Blood Pressure 163/104 H Blood Pressure [Right Arm] Blood Pressure Mean 113 Blood Pressure Mean [Right Arm] Pulse Oximetry 94 98 Oxygen Delivery Method Oxygen Flow Rate Sepsis Recent Fever Within 48 Hours Sepsis New/Unexplained Change in Mental Status Sepsis Action Taken by Nursing 08/05/25 13:40 08/05/25 13:40 08/05/25 13:40 Temperature Temperature Source Pulse Rate Pulse Rate [Apical] Pulse Rate from SpO2 Sensor Pulse Rhythm [Apical] Pulse Strength [Apical] Respiratory Rate Respiratory Effort / Characteristics Respiratory Depth Respiratory Pattern Blood Pressure 167/107 H 167/107 H 167/107 H Blood Pressure [Right Arm] Blood Pressure Mean 129 129 129 Blood Pressure Mean [Right Arm] Pulse Oximetry Oxygen Delivery Method Oxygen Flow Rate Sepsis Recent Fever Within 48 Hours Sepsis New/Unexplained Change in Mental Status Sepsis Action Taken by Nursing 08/05/25 13:40 08/05/25 13:40 08/05/25 13:42 Temperature Temperature Source Pulse Rate 95 H Pulse Rate [Apical] Pulse Rate from SpO2 Sensor 97 H Pulse Rhythm [Apical] Pulse Strength [Apical] Respiratory Rate 19 Respiratory Effort / Characteristics Respiratory Depth Respiratory Pattern Blood Pressure 167/107 H 167/107 H Blood Pressure [Right Arm] Blood Pressure Mean 129 129 Blood Pressure Mean [Right Arm] Pulse Oximetry 95 Oxygen Delivery Method Nasal Cannula Oxygen Flow Rate 6 Sepsis Recent Fever Within 48 Hours Sepsis New/Unexplained Change in Mental Status Sepsis Action Taken by Nursing 08/05/25 13:48 08/05/25 13:50 08/05/25 13:50 Temperature Temperature Source Pulse Rate 101 H Pulse Rate [Apical] Pulse Rate from SpO2 Sensor 101 H Pulse Rhythm [Apical] Pulse Strength [Apical] Respiratory Rate 20 Respiratory Effort / Characteristics Respiratory Depth Respiratory Pattern Blood Pressure 155/90 H 155/90 H Blood Pressure [Right Arm] Blood Pressure Mean 119 119 Blood Pressure Mean [Right Arm] Pulse Oximetry 91 Oxygen Delivery Method Oxygen Flow Rate Sepsis Recent Fever Within 48 Hours Sepsis New/Unexplained Change in Mental Status Sepsis Action Taken by Nursing 08/05/25 13:50 08/05/25 13:50 08/05/25 13:50 Temperature Temperature Source Pulse Rate Pulse Rate [Apical] Pulse Rate from SpO2 Sensor Pulse Rhythm [Apical] Pulse Strength [Apical] Respiratory Rate Respiratory Effort / Characteristics Respiratory Depth Respiratory Pattern Blood Pressure 155/90 H 155/90 H 155/90 H Blood Pressure [Right Arm] Blood Pressure Mean 119 119 119 Blood Pressure Mean [Right Arm] Pulse Oximetry Oxygen Delivery Method Oxygen Flow Rate Sepsis Recent Fever Within 48 Hours Sepsis New/Unexplained Change in Mental Status Sepsis Action Taken by Nursing 08/05/25 13:51 08/05/25 14:00 08/05/25 14:12 Temperature Temperature Source Pulse Rate 100 H 100 H 101 H Pulse Rate [Apical] Pulse Rate from SpO2 Sensor 94 H 88 Pulse Rhythm [Apical] Pulse Strength [Apical] Respiratory Rate 19 Respiratory Effort / Characteristics Respiratory Depth Respiratory Pattern Blood Pressure Blood Pressure [Right Arm] Blood Pressure Mean Blood Pressure Mean [Right Arm] Pulse Oximetry 92 90 Oxygen Delivery Method Oxygen Flow Rate Sepsis Recent Fever Within 48 Hours Sepsis New/Unexplained Change in Mental Status Sepsis Action Taken by Nursing 08/05/25 14:14 08/05/25 14:14 08/05/25 14:14 Temperature Temperature Source Pulse Rate Pulse Rate [Apical] Pulse Rate from SpO2 Sensor Pulse Rhythm [Apical] Pulse Strength [Apical] Respiratory Rate Respiratory Effort / Characteristics Respiratory Depth Respiratory Pattern Blood Pressure 156/90 H 156/90 H 156/90 H Blood Pressure [Right Arm] Blood Pressure Mean 119 119 119 Blood Pressure Mean [Right Arm] Pulse Oximetry Oxygen Delivery Method Oxygen Flow Rate Sepsis Recent Fever Within 48 Hours Sepsis New/Unexplained Change in Mental Status Sepsis Action Taken by Nursing 08/05/25 14:14 08/05/25 14:14 08/05/25 14:21 Temperature Temperature Source Pulse Rate 113 H Pulse Rate [Apical] Pulse Rate from SpO2 Sensor 111 H Pulse Rhythm [Apical] Pulse Strength [Apical] Respiratory Rate 28 H Respiratory Effort / Characteristics Respiratory Depth Respiratory Pattern Blood Pressure 156/90 H 156/90 H Blood Pressure [Right Arm] Blood Pressure Mean 119 119 Blood Pressure Mean [Right Arm] Pulse Oximetry 90 Oxygen Delivery Method Oxygen Flow Rate Sepsis Recent Fever Within 48 Hours Sepsis New/Unexplained Change in Mental Status Sepsis Action Taken by Nursing 08/05/25 15:00 08/05/25 15:18 Temperature Temperature Source Pulse Rate Pulse Rate [Apical] 105 H 107 H Pulse Rate from SpO2 Sensor Pulse Rhythm [Apical] Regular Pulse Strength [Apical] Normal Respiratory Rate 20 18 Respiratory Effort / Characteristics Non-Labored Spontaneous Non-Labored Spontaneous Respiratory Depth Normal Normal Respiratory Pattern Regular Regular Blood Pressure Blood Pressure [Right Arm] 133/89 133/89 Blood Pressure Mean Blood Pressure Mean [Right Arm] 103 103 Pulse Oximetry 93 93 Oxygen Delivery Method Nasal Cannula Nasal Cannula Oxygen Flow Rate 5 Sepsis Recent Fever Within 48 Hours Sepsis New/Unexplained Change in Mental Status Sepsis Action Taken by Nursing Laboratory Data 08/05/25 12:49 08/05/25 12:49 Lab Results 08/05/25 08/05/25 08/05/25 Range/Units 12:43 12:49 12:52 WBC 18.23 H (4.8-10.8) K/ul RBC 5.10 (4.20-5.40) M/uL Hgb 14.0 (12.0-16.0) g/dL POC Hgb 13.9 (12.0-16.0) g/dl Hct 42.3 (37.0-47.0) % POC Hct 41 (37-47) % MCV 82.9 (80.0-100.0) fL MCH 27.5 (25.0-34.0) pg MCHC 33.1 (32.0-36.0) g/dL RDW Std Deviation 46.2 (36.4-46.3) fL RDW Coeff of Rajiv 15.2 H (11.5-14.5) % Plt Count 304 (130-400) K/uL MPV 9.7 (9.4-12.4) fL Immature Gran % (Auto) 0.5 % Neut % (Auto) 78.3 % Lymph % (Auto) 12.3 % [place] % (Auto) 7.3 % Eos % (Auto) 0.9 % Baso % (Auto) 0.7 % Neut # (Auto) 14.27 H (1.40-6.50) K/uL Lymph # (Auto) 2.24 (1.20-3.40) K/uL [place] # (Auto) 1.33 H (0.11-0.59) K/uL Eos # (Auto) 0.17 (0.00-0.50) K/uL Baso # (Auto) 0.12 (0.00-0.20) K/uL Immature Gran # (Auto) 0.10 (0.01-0.20) K/uL PT 10.2 (9.0-12.0) Seconds INR 1.0 (0.9-1.1) APTT 24 (21-31) Seconds PTT Ratio 0.9 POC Sodium 142 (135-144) mmol/L Sodium 141 (136-145) mmol/L POC Potassium 3.9 (3.3-5.0) mmol/L Potassium 3.9 (3.5-5.1) mmol/L POC Chloride 108 (101-112) mmol/L Chloride 106 (98-107) mmol/L Carbon Dioxide 24 (21-32) mmol/L POC Total CO2 23 L (24-31) mmol/L Anion Gap 11 (3-11) POC Anion Gap 17.0 (16-25) mmol/L POC BUN 24 H (7-18) mg/dl BUN 23 (6-23) mg/dl Creatinine 0.87 (0.6-1.2) mg/dl POC Creatinine 0.9 (0.6-1.3) mg/dl Est Cr Clr Drug Dosing 38.8 ml/min eGFR 66.07 BUN/Creatinine Ratio 26.4 H (10-20) Glucose 115 H (70-99(Fasting)) mg/dl POC Glucose (other) 117 H (70-99) mg/dl Calcium 9.4 (8.6-10.3) mg/dl POC Ioniz Calcium Yojana 1.15 (1.12-1.32) mmol/l Total Bilirubin 0.7 (0.2-1.0) mg/dl AST 19 (13-39) U/L ALT 15 (7-52) U/L Alkaline Phosphatase 80 (34-104) U/L Total Protein 7.6 (6.0-8.3) gm/dl Albumin 4.1 (3.4-5.0) gm/dl Globulin 3.5 (2.5-4.0) gm/dl Albumin/Globulin Ratio 1.2 (0.9-2) Lipase 14 (11-82) U/L Urine Color Urine Appearance (Clear) Urine pH (4.5-7.5) Ur Specific [place] (1.000-1.030) Urine Protein (Negative) Urine Glucose (UA) (Negative) Urine Ketones (Negative) Urine Blood (Negative) Urine Nitrite (Negative) Urine Bilirubin (Negative) Urine Urobilinogen (Negative) Ur Leukocyte Esterase (Negative) Urine WBC (Auto) (0-5) /hpf Urine RBC (Auto) (0-2) /hpf U Hyaline Cast (Auto) (0-2) /lpf U Epithel Cells (Auto) (0-2) /hpf Urine Bacteria (Auto) (None Seen) Calcium Oxalate Crystal (None Prsent) Unidentified Crystals (None Prsent) Urine Comment Adenovirus (PCR) Not Detected (NotDetected) B. pertussis DNA (PCR) Not Detected (NotDetected) B.parapertussis DNA PCR Not Detected (NotDetected) C. pneumoniae DNA (PCR) Not Detected (NotDetected) Coronavirus OC43 (PCR) Not Detected (NotDetected) Coronavirus HKU1 (PCR) Not Detected (NotDetected) Coronavirus 229E (PCR) Not Detected (NotDetected) SARS-CoV-2 (PCR) Not Detected (NotDetected) Coronavirus NL63 (PCR) Not Detected (NotDetected) Human Metapneumovir PCR Not Detected (NotDetected) Influenza Type A (PCR) Not Detected (NotDetected) Influenza Type B (PCR) Not Detected (NotDetected) M. pneumoniae (PCR) Not Detected (NotDetected) Parainfluenza 1 (PCR) Not Detected (NotDetected) Parainfluenza 2 (PCR) Not Detected (NotDetected) Parainfluenza 3 (PCR) Not Detected (NotDetected) Parainfluenza 4 (PCR) Not Detected (NotDetected) RSV (PCR) Not Detected (NotDetected) Entero/Rhino (PCR) Not Detected (NotDetected) 08/05/25 Range/Units 14:26 WBC (4.8-10.8) K/ul RBC (4.20-5.40) M/uL Hgb (12.0-16.0) g/dL POC Hgb (12.0-16.0) g/dl Hct (37.0-47.0) % POC Hct (37-47) % MCV (80.0-100.0) fL MCH (25.0-34.0) pg MCHC (32.0-36.0) g/dL RDW Std Deviation (36.4-46.3) fL RDW Coeff of Rajiv (11.5-14.5) % Plt Count (130-400) K/uL MPV (9.4-12.4) fL Immature Gran % (Auto) % Neut % (Auto) % Lymph % (Auto) % [place] % (Auto) % Eos % (Auto) % Baso % (Auto) % Neut # (Auto) (1.40-6.50) K/uL Lymph # (Auto) (1.20-3.40) K/uL [place] # (Auto) (0.11-0.59) K/uL Eos # (Auto) (0.00-0.50) K/uL Baso # (Auto) (0.00-0.20) K/uL Immature Gran # (Auto) (0.01-0.20) K/uL PT (9.0-12.0) Seconds INR (0.9-1.1) APTT (21-31) Seconds PTT Ratio POC Sodium (135-144) mmol/L Sodium (136-145) mmol/L POC Potassium (3.3-5.0) mmol/L Potassium (3.5-5.1) mmol/L POC Chloride (101-112) mmol/L Chloride (98-107) mmol/L Carbon Dioxide (21-32) mmol/L POC Total CO2 (24-31) mmol/L Anion Gap (3-11) POC Anion Gap (16-25) mmol/L POC BUN (7-18) mg/dl BUN (6-23) mg/dl Creatinine (0.6-1.2) mg/dl POC Creatinine (0.6-1.3) mg/dl Est Cr Clr Drug Dosing ml/min eGFR BUN/Creatinine Ratio (10-20) Glucose (70-99(Fasting)) mg/dl POC Glucose (other) (70-99) mg/dl Calcium (8.6-10.3) mg/dl POC Ioniz Calcium Yojana (1.12-1.32) mmol/l Total Bilirubin (0.2-1.0) mg/dl AST (13-39) U/L ALT (7-52) U/L Alkaline Phosphatase (34-104) U/L Total Protein (6.0-8.3) gm/dl Albumin (3.4-5.0) gm/dl Globulin (2.5-4.0) gm/dl Albumin/Globulin Ratio (0.9-2) Lipase (11-82) U/L Urine Color Yellow Urine Appearance Clear (Clear) Urine pH 7.0 (4.5-7.5) Ur Specific [place] 1.033 H (1.000-1.030) Urine Protein Trace H (Negative) Urine Glucose (UA) Negative (Negative) Urine Ketones Trace H (Negative) Urine Blood Negative (Negative) Urine Nitrite Negative (Negative) Urine Bilirubin Negative (Negative) Urine Urobilinogen Negative (Negative) Ur Leukocyte Esterase 1+ H (Negative) Urine WBC (Auto) 6-10 H (0-5) /hpf Urine RBC (Auto) 0-2 (0-2) /hpf U Hyaline Cast (Auto) 0-2 (0-2) /lpf U Epithel Cells (Auto) 6-10 H (0-2) /hpf Urine Bacteria (Auto) None Seen (None Seen) Calcium Oxalate Crystal Present A (None Prsent) Unidentified Crystals Present A (None Prsent) Urine Comment Adenovirus (PCR) (NotDetected) B. pertussis DNA (PCR) (NotDetected) B.parapertussis DNA PCR (NotDetected) C. pneumoniae DNA (PCR) (NotDetected) Coronavirus OC43 (PCR) (NotDetected) Coronavirus HKU1 (PCR) (NotDetected) Coronavirus 229E (PCR) (NotDetected) SARS-CoV-2 (PCR) (NotDetected) Coronavirus NL63 (PCR) (NotDetected) Human Metapneumovir PCR (NotDetected) Influenza Type A (PCR) (NotDetected) Influenza Type B (PCR) (NotDetected) M. pneumoniae (PCR) (NotDetected) Parainfluenza 1 (PCR) (NotDetected) Parainfluenza 2 (PCR) (NotDetected) Parainfluenza 3 (PCR) (NotDetected) Parainfluenza 4 (PCR) (NotDetected) RSV (PCR) (NotDetected) Entero/Rhino (PCR) (NotDetected) Administered Medications Diclofenac Sodium (Diclofenac Sod 1% Gel 100 Gm Tube) 4 gm EXT QID [facility]; Protocol Stop: 09/04/25 17:44 Last Admin: 08/05/25 20:24 Dose: Not Given Documented By: [facility] [place] Admin: 08/05/25 19:03 Dose: 4 gm Documented By: [facility] [place] Heparin Sodium (Porcine) (Heparin Sod 5,000 Unit/0.5 Ml Vial) 5,000 units SQ Q12 [facility] Stop: 09/04/25 20:59 Last Admin: 08/05/25 20:24 Dose: 5,000 units Documented By: [facility] [place] Ceftriaxone Sodium (Rocephin) 1,000 mg in 50 mls @ 100 mls/hr IV Q24H [facility] Stop: 08/10/25 17:29 Last Infusion: 08/05/25 20:08 Dose: Infused Documented By: [facility] [place] Admin: 08/05/25 19:03 Dose: 100 mls/hr Documented By: [facility] [place] Acetaminophen (Ofirmev) 1,000 mg in 100 mls @ 400 mls/hr IV Q8H [facility] Stop: 08/08/25 17:44 Last Infusion: 08/06/25 02:30 Dose: Infused Documented By: [facility] [place] Admin: 08/06/25 02:05 Dose: 400 mls/hr Documented By: [facility] [place] Admin: 08/05/25 18:16 Dose: Not Given Documented By: [facility] [place] Lidocaine (Lidocaine 5% 1 Patch) 1 patch TD QAM [facility] Stop: 09/04/25 17:29 Last Admin: 08/05/25 17:39 Dose: Not Given Documented By: [facility] [place] Miscellaneous (Remove Lidoderm Patch) 1 each N/A DAILY@2100 [facility] Stop: 09/04/25 20:59 Last Admin: 08/05/25 20:27 Dose: 1 each Documented By: [facility] [place] Miscellaneous (Remove Lidoderm Patch) 1 each N/A DAILY@2100 [facility] Stop: 09/04/25 20:59 Last Admin: 08/05/25 20:28 Dose: Not Given Documented By: [facility] [place] Morphine Sulfate (Morphine Sulfate 2 Mg/Ml Carp) 2 mg IV Q6H PRN PRN Reason: Mod-Sev Pain (Scale 4-10) Stop: 08/19/25 17:22 Last Admin: 08/05/25 20:26 Dose: 2 mg Documented By: JENNIE Sertraline HCl (Sertraline Hcl 50 Mg Tablet) 150 mg PO PM [facility] Stop: 09/04/25 20:59 Last Admin: 08/05/25 20:28 Dose: Not Given Documented By: JENNIE Discontinued Medications Hydromorphone HCl (Hydromorphone Inj 0.5 Mg/0.5 Ml Syr) 0.5 mg IV NOW STA Stop: 08/05/25 12:56 Last Admin: 08/05/25 13:03 Dose: 0.5 mg Documented By: ELISEO Hydromorphone HCl (Hydromorphone Inj 0.5 Mg/0.5 Ml Syr) 0.5 mg IV NOW STA Stop: 08/05/25 15:24 Last Admin: 08/05/25 15:30 Dose: 0.5 mg Documented By: KAYE Acetaminophen (Ofirmev) 1,000 mg in 100 mls @ 400 mls/hr IV NOW STA Stop: 08/05/25 16:12 Last Infusion: 08/05/25 17:37 Dose: Infused Documented By: Admin: 08/05/25 16:33 Dose: 400 mls/hr Documented By: KAYE Sodium Chloride (Nss) 1,000 mls @ 75 mls/hr IV .[id number] ONE Stop: 08/06/25 06:42 Last Infusion: 08/06/25 06:34 Dose: Infused Documented By: Admin: 08/05/25 17:42 Dose: 75 mls/hr Documented By: ABHISHEK Acetaminophen (Ofirmev) 1,000 mg in 100 mls @ 400 mls/hr IV Q8H JODI Stop: 08/07/25 17:22 Last Admin: 08/05/25 18:26 Dose: Not Given Documented By: ABHISHEK Ioversol (Optiray 320 100ml) 93 ml IV ONCE ONE Stop: 08/05/25 13:13 Last Admin: 08/05/25 13:12 Dose: 93 ml Documented By: CRUZ Lidocaine (Lidocaine 5% 1 Patch) 1 patch TD NOW STA Stop: 08/05/25 16:05 Last Admin: 08/05/25 16:33 Dose: 1 patch Documented By: KAYE Imaging Data Radiologist's Impression: Chest CT 08/05/25 12:42 CT SCAN OF THE CHEST WITH IV CONTRAST CLINICAL HISTORY: Trauma. Hypoxia. COMPARISON STUDY: Chest x-ray dated 08/05/2025. Abdominal CT dated 08/18/2024. TECHNIQUE: Following the IV administration of 93 cc of Optiray 320, CT scan of the thorax was performed from the thoracic inlet to the upper abdomen. Images are reviewed in the axial, sagittal, and coronal planes. IV contrast was administered without complication. A dose lowering technique was utilized adhering to the principles of ALARA. The examination is degraded by motion artifact, as well as by streak artifact from the arms which could not be elevated above the chest. CT DOSE: 921.15 mGy.cm FINDINGS: Thyroid: Imaged portions of the thyroid gland are normal in size and attenuation. Thoracic aorta: There is atherosclerotic calcification of the thoracic aorta, which is normal in caliber and demonstrates standard 3-vessel arch anatomy. No dissection is seen. 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 This has been seen on prior chest x-rays. Pulmonary vasculature: The main pulmonary arteries appear dilated suggesting pulmonary artery hypertension. There are no filling defects identified in the central pulmonary vessels to indicate pulmonary embolus. Note that this examination was not protocoled for evaluation of the pulmonary arteries. Heart: The heart is enlarged and without pericardial effusion. There is coronary artery atherosclerosis. Lungs and pleural spaces: Evaluation of the lung parenchyma is degraded by motion artifact. The trachea and central airways are clear. No pneumothorax is seen. There is elevation of the left diaphragm and dense consolidation at the left lung base which is similar to previous. This likely represents atelectasis. Foci of scarring/atelectasis are seen throughout the right lung. Diffuse interlobular septal thickening is observed. Mediastinum: There is no mediastinal hematoma. Subcentimeter mediastinal lymph nodes are not pathologically enlarged by size criteria. Lizzy: Clear. Axillae: There is no axillary lymphadenopathy. Upper abdomen: Partially visualized upper abdominal viscera is within normal limits. Skeletal structures: The skeletal structures are osteopenic. There are subacute/healing fractures of the right anterolateral 4th and 5th ribs. There are also subacute/healing fractures of the right posterior 9th through 11th ribs. Chronic/healed rib fractures are noted on the left. Degenerative change and mild kyphoscoliosis is noted in the thoracic spine. Arthritic change is seen in the shoulders. No lytic or blastic bony lesions are seen. IMPRESSION: 1. There are subacute/healing right-sided rib fractures as above. 2. Cardiomegaly with intralobular septal thickening. This could represent acute versus chronic congestive change and clinical correlation will be required. 3. There is elevation of the left hemidiaphragm with chronic dependent consolidation at the left lung base. This likely represents atelectasis. Correlate clinically. 4. 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 This has been seen on prior chest x-rays. 5. Additional findings as above. ACT 112: Negative or not required by law. Electronically signed by: Hernán Bland M.D. 08/05/2025 1:49 PM Chest X-Ray 08/05/25 12:42 XR chest 1V portable CLINICAL HISTORY: Trauma COMPARISON STUDY: 08/15/2024 FINDINGS: Stable cardiomegaly with pulmonary vascular congestion. Inspiration is shallow. There is increased stranding at the left lung base. No other consolidation or pleural effusion. No pneumothorax. Skinfold artifact overlies the right lung. There are a few left-sided rib fractures of uncertain chronicity. IMPRESSION: 1. Left-sided rib fractures of uncertain chronicity with no pneumothorax seen. 2. Atelectasis versus pulmonary consolidation at the left lung base. ACT 112: Negative or not required by law. Electronically signed by: Baron Sanches M.D. 08/05/2025 1:[address] 08/05/25 12:42 CT head/brain wo con CLINICAL HISTORY: dementia, fall at [facility]. TECHNIQUE: Multiple axial CT images of the head were obtained without contrast. A dose lowering technique was utilized adhering to the principles of ALARA. COMPARISON: 08/15/2024 FINDINGS: There is stable mild prominence of the ventricles out of proportion to sulci, cerebral atrophy versus normal pressure hydrocephalus. Stable moderate chronic small vessel ischemic change. 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 No intracranial hemorrhage seen. No mass effect or midline shift. No skull fracture seen. Visualized paranasal sinuses and mastoid air cells are clear. IMPRESSION: No acute findings. ACT 112: Negative or not required by law. The above report was generated using voice recognition software. It may contain grammatical, syntax or spelling errors. Electronically signed by: Baron Sanches M.D. 08/05/2025 1:27 PM Hip/Pelvis X-Ray 08/05/25 12:46 XR hip RT 2V w pelvis CLINICAL HISTORY: hip fx COMPARISON: 08/15/2024 FINDINGS: Left femoral gamma nail is partially visualized and there is an old fracture proximal left femur. There is an acute mildly displaced mildly impacted fracture at the right femoral neck. No other fracture or dislocation seen. IMPRESSION: Acute fracture right femoral neck. ACT 112: Negative or not required by law. Electronically signed by: Baron Sanches M.D. 08/05/2025 1:22 PM Discharge Plan Visit Data Chief Complaint: Trauma Stated Complaint: FALL, HYPOXIA ED Provider: Rima Mattson Discharge Problem: Hip fracture, Hypoxia, Fall Patient Disposition: Admitted As Inpatient Condition: Fair Discharge Instructions Interventions: ED Discharge Assessment Last Done: 08/05/25 16:49 Discharge Problem: Hip fracture Qualifiers: Encounter type: initial encounter Fracture type: closed Laterality: right Q ualified Code(s): S72.001A - Fracture of unspecified part of neck of right femur, initial encounter for closed fracture
[2025-08-05 14:47] LABS: Appearance Urine Clear (Clear); Bacteria Urine Automated None Seen (None Seen); Cast Urine Automated 0-2 /lpf (0-2); Glucose Urine UA Negative (Negative); RBC Urine Automated 0-2 /hpf (0-2)
[2025-08-05 15:01] LABS: Unidentified Crystals Urine Present (None Prsent)
--- NOTE | 2025-08-05 15:26 | History & Physical Report ---
Date of Service August 05, 2025 Assessment & Plan (1) Femur fracture, right: (2) Fall: Plan: Patient is 84 year old female with PMH HTN, h/o stroke, dementia presented to ER from [facility] for unwitnessed fall today, didn't seem to be returning to baseline status and noted to be hypoxic by staff today. Daughter reports history frequent falls. CT head: No acute findings Hip/pelvis xray: Acute fracture right femoral neck. In ER given total 1mg Dilaudid Connelly catheter placed in ER Pain control with scheduled Tylenol, lidocaine patch, oxycodone and morphine as needed moderate-severe pain NPO midnight in case of procedure Ortho consult CBC, BMP in a.m. (3) Hypoxia: Plan: In ER 83% on RA up to 91% on 5L and 96% on 6L oxymask CT chest: There are subacute/healing fractures of the right anterolateral 4th and 5th ribs. There are also subacute/healing fractures of the right posterior 9th through 11th ribs. Chronic/healed rib fractures are noted on the left. Cardiomegaly with intralobular septal thickening. This could represent acute versus chronic congestive change and clinical correlation will be required. There is elevation of the left hemidiaphragm with chronic dependent consoli dation at the left lung base. This likely represents atelectasis. 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 This has been seen on prior chest x-rays. Negative respiratory biofire panel Has old and subacute rib fractures. Suspect atelectasis. Ddx: pneumonia Continue oxygen as needed Incentive spirometry if pt able to participate Will start Rocephin. obtain procalcitonin #Abnormal Urinalysis Obtain urine culture Rocephin for now pending culture #Tachycardia Noted tachycardia in ER. Suspect sinus tachycardia likely from pain Obtain EKG (4) Alzheimer dementia: Plan: Daughter reports noted decline past couple of months. Feels pt at recent baseline Monitor for delirium Continue sertraline (5) HTN (hypertension): Plan: Continue amlodipine (6) Cerebellar stroke: Plan: Hold aspirin for now in case of procedure Admit med tele DNR/DNI as per discussion with pt's daughter Follows with provider at [facility] for routine care Pt was seen and care coordinated with Dr Delarosa. See addendum I spent a total of 60 minutes reviewing notes, outpatient records, labs, medication, coordinating, documenting and providing care for this patient excluding time spent in the performance of separately billed services and excluding time spent by another provider/QHP. History of Present Illness Chief Complaint: Fall Primary Care Provider: Theresa Macias at [place] Patient is 84 year old female with PMH HTN, h/o stroke, dementia presented to ER from [facility] for unwitnessed fall today. History obtained from patient's daughter secondary to cognitive status. It is reported patient had unwitnessed fall this morning. Per staff she didn't seem to be returning to her baseline. Was noted to be hypoxic and sent to ER. Per patient's daughter at bedside patient has "good days and bad days" and states yesterday she seemed lethargic and wasn't very responsive. States her brother saw patient couple days before and she was more responsive. States patient with dementia and not oriented and at baseline does not recognize family members. States patient with frequent falls and has known fall last year with left sided rib fractures. Denies any known fever or chills or cough. States patient has had steady decline and last month her sertraline was increased secondary to tearfulness and decreased appetite and decreased oral intake. States since the increase of medication she seems less tearful. Unable to obtain further ROM at this time. Allergies Allergy/AdvReac Type Severity Reaction Status Date / Time No Known Allergies Allergy Unverified 08/15/24 14:41 Home Medications Medication Instructions Recorded Confirmed Type Milk of Magnesia 30 ml PO DAILY PRN Constipation 08/15/24 08/05/25 History amlodipine 2.5 mg tablet 2.5 mg PO DAILY 08/15/24 08/05/25 History aspirin 81 mg tablet,delayed 81 mg PO DAILY 08/15/24 08/05/25 History release pkfonqi-dryiaziwjqykv-zrwjovpv 250 2 tab PO Q8H PRN Headache 08/15/24 08/05/25 History mg-250 mg-65 mg tablet (Headache Relief ([id number])) bisacodyl 10 mg rectal suppository 10 mg [place] DAILY PRN Constipation 08/15/24 08/05/25 History cetirizine 10 mg tablet 10 mg PO DAILY 08/15/24 08/05/25 History cholecalciferol (vitamin D3) 50 50 mcg PO DAILY 08/15/24 08/05/25 History mcg (2,000 unit) tablet diclofenac sodium 1 % topical gel 4 g topical QID 08/05/25 08/05/25 History sertraline 150 mg capsule 150 mg PO PM 08/05/25 08/05/25 History Past Med/Surg History Problem List (Updated 08/05/25 @ 16:53 by Zoe Wagner PA-C) Hypoxia Fall Femur fracture, right Hip fracture (Acute) Medical History Anemia Alzheimer dementia Cerebellar stroke HTN (hypertension) Surgical History No pertinent past surgical history Social History Smoking Status: Unknown if ever smoked Hx Alcohol Use: No (unable to obtain) Hx Substance Use: No (unable to obtain) Preferred Language: [place] Islander Communication Ability: Effective Section Weaver Required: No Beliefs That Will Affect Care: None Current Living Situation: Correction Feels Safe at Home: Yes Assistive Devices: Walker Review of Systems Review of Systems: Unobtainable due to cognitive status Physical Exam Physical Exam: General: +intermittent distress noted with wincing, appears to be in pain, lying on left side with her right leg over left in apparent position of comfort, thin elderly female Head: normocephalic, atraumatic Eyes: conjunctiva non-injected, anicteric ENT: normal inspection external ears, nose, mucous membranes moist Neck: supple, trachea midline Lungs: no respiratory distress noted on oxymask with O2 sat 95%, limited exam secondary to patient participation, diminished breath sounds CV: RRR, no pretibial edema Abd: normal BS, soft, no apparent tenderness to palpation Ext: RLE: +right leg draped over left leg in apparent position of comfort, leg appears to be shortened, +wincing with palpation of right hip, brisk capillary refill Neuro: Alert, appears to be in pain with wincing, does not follow commands, intermittent flailing of arms noted and quickly calms with gentle touch and talking/interaction, does not follow commands Skin: warm, dry Results & Data Results & Data Vital Signs (Past 12 Hours) Vital Signs Temp Pulse Pulse Resp BP BP Pulse Ox 08/05/25 15:18 107 H 18 133/89 93 08/05/25 15:00 105 H 20 133/89 93 08/05/25 14:21 113 H 28 H 90 08/05/25 14:14 156/90 H 08/05/25 14:14 156/90 H 08/05/25 14:14 156/90 H 08/05/25 14:14 156/90 H 08/05/25 14:14 156/90 H 08/05/25 14:12 101 H 08/05/25 14:00 100 H 90 08/05/25 13:51 100 H 19 92 08/05/25 13:50 155/90 H 08/05/25 13:50 155/90 H 08/05/25 13:50 155/90 H 08/05/25 13:50 155/90 H 08/05/25 13:50 155/90 H 08/05/25 13:48 101 H 20 91 08/05/25 13:42 95 H 19 95 08/05/25 13:40 167/107 H 08/05/25 13:40 167/107 H 08/05/25 13:40 167/107 H 08/05/25 13:40 167/107 H 08/05/25 13:40 167/107 H 08/05/25 13:39 102 H 18 98 08/05/25 13:30 100 H 18 94 08/05/25 13:30 163/104 H 08/05/25 13:30 163/104 H 08/05/25 13:30 163/104 H 08/05/25 13:30 163/104 H 08/05/25 13:30 163/104 H 08/05/25 13:21 94 H 17 96 08/05/25 13:20 165/115 H 08/05/25 13:20 165/115 H 08/05/25 13:19 178/129 H 08/05/25 13:18 102 H 19 96 08/05/25 13:01 171/97 H 08/05/25 13:01 171/97 H 08/05/25 13:01 171/97 H 08/05/25 13:01 171/97 H 08/05/25 13:01 171/97 H 08/05/25 13:00 96 H 21 92 08/05/25 12:59 94 H 08/05/25 12:51 97 H 28 H 90 08/05/25 12:48 90 25 H 91 08/05/25 12:33 91 08/05/25 12:23 36.6 C 98 H 26 H 154/120 H 83 L 08/05/25 12:23 36.8 C 92 H 19 154/120 H 83 L O2 Del Method O2 Flow Rate 08/05/25 15:18 Nasal Cannula 08/05/25 15:00 Nasal Cannula 5 08/05/25 14:21 08/05/25 14:14 08/05/25 14:14 08/05/25 14:14 08/05/25 14:14 08/05/25 14:14 08/05/25 14:12 08/05/25 14:00 08/05/25 13:51 08/05/25 13:50 08/05/25 13:50 08/05/25 13:50 08/05/25 13:50 08/05/25 13:50 08/05/25 13:48 08/05/25 13:42 Nasal Cannula 6 08/05/25 13:40 08/05/25 13:40 08/05/25 13:40 08/05/25 13:40 08/05/25 13:40 08/05/25 13:39 08/05/25 13:30 08/05/25 13:30 08/05/25 13:30 08/05/25 13:30 08/05/25 13:30 08/05/25 13:30 08/05/25 13:21 08/05/25 13:20 08/05/25 13:20 Oxymask 08/05/25 13:19 08/05/25 13:18 Oxymask 6 08/05/25 13:01 08/05/25 13:01 08/05/25 13:01 08/05/25 13:01 08/05/25 13:01 08/05/25 13:00 08/05/25 12:59 08/05/25 12:51 08/05/25 12:48 08/05/25 12:33 Nasal Cannula 5 08/05/25 12:23 Nasal Cannula 5 08/05/25 12:23 Room Air Laboratory Results Short CBC 08/05/25 Range/Units 12:49 WBC 18.23 H (4.8-10.8) K/ul Hgb 14.0 (12.0-16.0) g/dL Hct 42.3 (37.0-47.0) % Plt Count 304 (130-400) K/uL BMP 08/05/25 12:49 Sodium 141 Potassium 3.9 Chloride 106 Carbon Dioxide 24 BUN 23 Creatinine 0.87 Glucose 115 H Calcium 9.4 Liver Function 08/05/25 Range/Units 12:49 Total Bilirubin 0.7 (0.2-1.0) mg/dl AST 19 (13-39) U/L ALT 15 (7-52) U/L Alkaline Phosphatase 80 (34-104) U/L Albumin 4.1 (3.4-5.0) gm/dl Urine 08/05/25 Range/Units 14:26 Urine Color Yellow Urine Appearance Clear (Clear) Urine pH 7.0 (4.5-7.5) Ur Specific [place] 1.033 H (1.000-1.030) Urine Protein Trace H (Negative) Urine Glucose (UA) Negative (Negative) Diagnostic Findings Chest CT 08/05/25 12:42 CT SCAN OF THE CHEST WITH IV CONTRAST CLINICAL HISTORY: Trauma. Hypoxia. COMPARISON STUDY: Chest x-ray dated 08/05/2025. Abdominal CT dated 08/18/2024. TECHNIQUE: Following the IV administration of 93 cc of Optiray 320, CT scan of the thorax was performed from the thoracic inlet to the upper abdomen. Images are reviewed in the axial, sagittal, and coronal planes. IV contrast was administered without complication. A dose lowering technique was utilized adhering to the principles of ALARA. The examination is degraded by motion artifact, as well as by streak artifact from the arms which could not be elevated above the chest. CT DOSE: 921.15 mGy.cm FINDINGS: Thyroid: Imaged portions of the thyroid gland are normal in size and attenuation. Thoracic aorta: There is atherosclerotic calcification of the thoracic aorta, which is normal in caliber and demonstrates standard 3-vessel arch anatomy. No dissection is seen. 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 This has been seen on prior chest x-rays. Pulmonary vasculature: The main pulmonary arteries appear dilated suggesting pulmonary artery hypertension. There are no filling defects identified in the central pulmonary vessels to indicate pulmonary embolus. Note that this examination was not protocoled for evaluation of the pulmonary arteries. Heart: The heart is enlarged and without pericardial effusion. There is coronary artery atherosclerosis. Lungs and pleural spaces: Evaluation of the lung parenchyma is degraded by motion artifact. The trachea and central airways are clear. No pneumothorax is seen. There is elevation of the left diaphragm and dense consolidation at the left lung base which is similar to previous. This likely represents atelectasis. Foci of scarring/atelectasis are seen throughout the right lung. Diffuse interlobular septal thickening is observed. Mediastinum: There is no mediastinal hematoma. Subcentimeter mediastinal lymph nodes are not pathologically enlarged by size criteria. Lizzy: Clear. Axillae: There is no axillary lymphadenopathy. Upper abdomen: Partially visualized upper abdominal viscera is within normal limits. Skeletal structures: The skeletal structures are osteopenic. There are subacute/healing fractures of the right anterolateral 4th and 5th ribs. There are also subacute/healing fractures of the right posterior 9th through 11th ribs. Chronic/healed rib fractures are noted on the left. Degenerative change and mild kyphoscoliosis is noted in the thoracic spine. Arthritic change is seen in the shoulders. No lytic or blastic bony lesions are seen. IMPRESSION: 5. Additional findings as above. ACT 112: Negative or not required by law. Electronically signed by: Hernán Bland M.D. 08/05/2025 1:49 PM Chest X-Ray 08/05/25 12:42 XR chest 1V portable CLINICAL HISTORY: Trauma COMPARISON STUDY: 08/15/2024 FINDINGS: Stable cardiomegaly with pulmonary vascular congestion. Inspiration is shallow. There is increased stranding at the left lung base. No other consolidation or pleural effusion. No pneumothorax. Skinfold artifact overlies the right lung. There are a few left-sided rib fractures of uncertain chronicity. IMPRESSION: 1. Left-sided rib fractures of uncertain chronicity with no pneumothorax seen. 2. Atelectasis versus pulmonary consolidation at the left lung base. ACT 112: Negative or not required by law. Electronically signed by: Baron Sanches M.D. 08/05/2025 1:[address] 08/05/25 12:42 CT head/brain wo con CLINICAL HISTORY: dementia, fall at [facility]. TECHNIQUE: Multiple axial CT images of the head were obtained without contrast. A dose lowering technique was utilized adhering to the principles of ALARA. COMPARISON: 08/15/2024 FINDINGS: There is stable mild prominence of the ventricles out of proportion to sulci, cerebral atrophy versus normal pressure hydrocephalus. Stable moderate chronic small vessel ischemic change. 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 No intracranial hemorrhage seen. No mass effect or midline shift. No skull fracture seen. Visualized paranasal sinuses and mastoid air cells are clear. IMPRESSION: No acute findings. ACT 112: Negative or not required by law. The above report was generated using voice recognition software. It may contain grammatical, syntax or spelling errors. Electronically signed by: Baron Sanches M.D. 08/05/2025 1:27 PM Hip/Pelvis X-Ray 08/05/25 12:46 XR hip RT 2V w pelvis CLINICAL HISTORY: hip fx COMPARISON: 08/15/2024 FINDINGS: Left femoral gamma nail is partially visualized and there is an old fracture proximal left femur. There is an acute mildly displaced mildly impacted fracture at the right femoral neck. No other fracture or dislocation seen. IMPRESSION: Acute fracture right femoral neck. ACT 112: Negative or not required by law. Electronically signed by: Baron Sanches M.D. 08/05/2025 1:22 PM Supervising Physician Co-Signing Physician Notes Patient is an 84-year-old female with history of dementia, hypertension, CVA, recurrent falls, ambulatory dysfunction and other medical problems presents from [facility] after sustaining an unwitnessed fall earlier today. Patient has advanced dementia and unable to provide any history. Most of the history is obtained from old records, patient's daughter at bedside and ED physician. Patient is noted to be in mild distress due to right hip pain. Daughter admits that patient had multiple falls in the past and uses walker for ambulation at baseline. Patient was also found to be hypoxic while in ED requiring supplemental oxygen to maintain saturations. No known history of fever, chills, cough, shortness of breath, chest pain, abdominal pain. Please review HPI for complete details of presentation. I personally reviewed blood work and imaging studies. Noted leukocytosis 18.2 3K, abnormal urinalysis. Imaging studies suggestive of right femoral neck fracture, multiple right subacute rib fractures, left rib fractures noted as well. CT head showed no acute process. CT chest also noted mild left hemidiaphragm elevation and pulmonary consolidation at the left lung base likely atelectasis. Incidentally noted 2.2 cm peripherally calcified ductus diverticulum also noted on prior imaging. On exam patient does thin, frail, elderly, mild distress, alert, awake, unable to assess orientation due to dementia, normocephalic atraumatic, EOMI, decreased breath sounds, S1-S2, no murmur, no peripheral edema, abdomen soft, nontender, right hip tender, decreased ROM, right lower extremity shortened. Unable to perform complete neurological exam as patient does not follow commands/dementia. Patient is admitted for management of right hip fracture secondary to ambulatory dysfunction/mechanical fall. Pain control as needed, fall precautions, PT OT when appropriate. Orthopedics consulted. N.p.o. after midnight for possible right hip surgery. Possible urinary tract infection. Urine culture pending. Empirically on IV Rocephin. Incentive spirometry, supplemental oxygen as needed for atelectasis. I personally interviewed and examined the patient at bedside. I have reviewed the advanced practitioner's documentation on the date of service referred in note and agree with plan. Patient's care is coordinated with Zoe Wagner PA-C. Please refer to the documentation above for details of patient's presentation and for discussion of other issues. I spent a total [id number] coordinating, documenting, and providing care for this patient excluding time spent in the performance of separately billed services or time spent by another provider/QHP. (5) HTN (hypertension) Hypertension type: primary hypertension Qualified Code(s): I10 - Essential (primary) hypertension
[2025-08-05] MEDS: ACETAMINOPHEN 1,000 MG/100 ML VIAL IV STA (16:33)
[2025-08-05] MEDS: LIDOCAINE 5% 1 PATCH TD STA (16:33)
[2025-08-05] MEDS ORDERED: NALOXONE HCL 0.4 MG/1 ML VIAL/CARP IV PRN (17:23)
[2025-08-05] MEDS ORDERED: ONDANSETRON INJ 2 MG/ML 2 ML VIAL IV PRN (17:23)
[2025-08-05] MEDS ORDERED: POLYETHYLENE (MIRALAX) 17 GM PACK PO PRN (17:23)
[2025-08-05] MEDS ORDERED: MAGNESIUM HYDROXIDE SUSP 30 ML UDC PO PRN (17:23)
[2025-08-05] MEDS ORDERED: ACETAMINOPHEN 325 MG TAB PO PRN (17:23)
--- NOTE | 2025-08-05 17:27 | Orthopedic Consultation ---
Date of Consultation August 05, 2025 Assessment & Plan (1) Femur fracture, right: Discussed the fracture with the patient's family. Her daughter who is power of document review attorney states that they are acceptable to the patient having a right hip hemiarthroplasty if it helps relieve her pain. I went over the consent form with them and explained all the risks. Informed consent to perform the procedure was obtained. Dr. Hugo also saw and evaluated the patient and talked with family. Will plan on doing a right hip cemented hemiarthroplasty tomorrow morning. Patient will be n.p.o. after midnight tonight. All preoperative orders were placed. Supervising Physician Co-Signing Physician Notes I, Dr. Hugo, saw and examined the patient. I discussed the management with my PA. I reviewed my PAs note and agree with the documented findings and attest to completing the substantive portion of medical decision making and plan of care I developed. 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 After orthopedic consultation discussing the patients treatment options of conservative versus surgical intervention, the patient agreed to a planned hemiarthroplasty. The family would like to treat her for pain and to avoid the risks of bed sores, pulmonary complications, and to give the patient the best chance for ambulation. The patient understands the risks of surgery, which include but are not limited to: bleeding, infection, re-operation, damage to nerves and arteries, continued pain, failure of the hardware, fracture, dislocation, DVT, MA, stroke, and . In addition, the patient is aware of the 20-30% morbidity associated with hip fracture for up to 1 year following a hip fracture. The patient understands all these instructions and explanations; all their questions have been satisfactorily addressed. The patient's family have signed the informed consent was signed and will discuss further with family friend who is an orthopedic surgeon.Continue pain control. NPO with fluids after midnight. The patient will be admitted to the Hospitalist service. The patient has been placed on the add-on list for tomorrow. Will plan to proceed with surgery tomorrow if medically cleared. Ancef and TXA on-call to OR. History of Present Illness Reason for Consultation: Right hip subcapital femur fracture Requesting Physician: Emmett Hugo MD Attending Physician: Rehan Delarosa MD History of Present Illness Patient is 84 year old female with PMH HTN, h/o stroke, dementia presented to ER from [facility] for unwitnessed fall today. History obtained from patient's daughter secondary to cognitive status. It is reported patient had unwitnessed fall this morning. Per staff she didn't seem to be returning to her baseline. Was noted to be hypoxic and sent to ER. Per patient's daughter at bedside patient has "good days and bad days" and states yesterday she seemed lethargic and wasn't very responsive. States her brother saw patient couple days before and she was more responsive. States patient with dementia and not oriented and at baseline does not recognize family members. States patient with frequent falls and has known fall last year with left sided rib fractures. Denies any known fever or chills or cough. States patient has had steady decline and last month her sertraline was increased secondary to tearfulness and decreased appetite and decreased oral intake. States since the increase of medication she seems less tearful. Unable to obtain further ROM at this time. Allergies Allergy/AdvReac Type Severity Reaction Status Date / Time No Known Allergies Allergy Unverified 08/15/24 14:41 Home Medications Medication Instructions Recorded Confirmed Type Milk of Magnesia 30 ml PO DAILY PRN Constipation 08/15/24 08/05/25 History amlodipine 2.5 mg tablet 2.5 mg PO DAILY 08/15/24 08/05/25 History aspirin 81 mg tablet,delayed 81 mg PO DAILY 08/15/24 08/05/25 History release bwzpxvc-yuekbcluyhvmr-gxdpxzzi 250 2 tab PO Q8H PRN Headache 08/15/24 08/05/25 History mg-250 mg-65 mg tablet (Headache Relief ([id number])) bisacodyl 10 mg rectal suppository 10 mg NJ DAILY PRN Constipation 08/15/24 08/05/25 History cetirizine 10 mg tablet 10 mg PO DAILY 08/15/24 08/05/25 History cholecalciferol (vitamin D3) 50 50 mcg PO DAILY 08/15/24 08/05/25 History mcg (2,000 unit) tablet diclofenac sodium 1 % topical gel 4 g topical QID 08/05/25 08/05/25 History sertraline 150 mg capsule 150 mg PO PM 08/05/25 08/05/25 History Patient History Medical History Anemia Alzheimer dementia Cerebellar stroke HTN (hypertension) Surgical History No pertinent past surgical history Social History Smoking Status: Former smoker Second Hand Exposure: No; Do You Dip or Chew Tobacco: No; Hx Alcohol Use: No Hx Substance Use: No Preferred Language: Yi Communication Ability: Impaired Map And Chart Mounter Required: No Beliefs That Will Affect Care: None Current Living Situation: Residential Current Living Situation Comment: [facility] Other Information That Helps Us Care for You: No Feels Safe at Home: Yes Assistive Devices: Oxygen - Continuous and Walker Review of Systems Review of Systems: Unobtainable due to cognitive status Physical Exam Physical Exam: Right hip: Patient moans with palpation over the anterolateral aspect of the right hip. She is postured with her right leg slightly draped over her left. Slightly shortened and internally rotated. She also moans with attempted log- roll testing. Due to her fracture I did not attempt hip flexion, internal and external rotation. Results & Data Vital Signs (Past 12 Hours) Vital Signs Temp Pulse Pulse Resp BP BP Pulse Ox 08/05/25 16:00 103 H 19 108/73 93 08/05/25 15:18 107 H 18 133/89 93 08/05/25 15:00 105 H 20 133/89 93 08/05/25 14:21 113 H 28 H 90 08/05/25 14:14 156/90 H 08/05/25 14:14 156/90 H 08/05/25 14:14 156/90 H 08/05/25 14:14 156/90 H 08/05/25 14:14 156/90 H 08/05/25 14:12 101 H 08/05/25 14:00 100 H 90 08/05/25 13:51 100 H 19 92 08/05/25 13:50 155/90 H 08/05/25 13:50 155/90 H 08/05/25 13:50 155/90 H 08/05/25 13:50 155/90 H 08/05/25 13:50 155/90 H 08/05/25 13:48 101 H 20 91 08/05/25 13:42 95 H 19 95 08/05/25 13:40 167/107 H 08/05/25 13:40 167/107 H 08/05/25 13:40 167/107 H 08/05/25 13:40 167/107 H 08/05/25 13:40 167/107 H 08/05/25 13:39 102 H 18 98 08/05/25 13:30 100 H 18 94 08/05/25 13:30 163/104 H 08/05/25 13:30 163/104 H 08/05/25 13:30 163/104 H 08/05/25 13:30 163/104 H 08/05/25 13:30 163/104 H 08/05/25 13:21 94 H 17 96 08/05/25 13:20 165/115 H 08/05/25 13:20 165/115 H 08/05/25 13:19 178/129 H 08/05/25 13:18 102 H 19 96 08/05/25 13:01 171/97 H 08/05/25 13:01 171/97 H 08/05/25 13:01 171/97 H 08/05/25 13:01 171/97 H 08/05/25 13:01 171/97 H 08/05/25 13:00 96 H 21 92 08/05/25 12:59 94 H 08/05/25 12:51 97 H 28 H 90 08/05/25 12:48 90 25 H 91 08/05/25 12:33 91 08/05/25 12:23 36.6 C 98 H 26 H 154/120 H 83 L 08/05/25 12:23 36.8 C 92 H 19 154/120 H 83 L O2 Del Method O2 Flow Rate 08/05/25 16:00 Nasal Cannula 5 08/05/25 15:18 Nasal Cannula 08/05/25 15:00 Nasal Cannula 5 08/05/25 14:21 08/05/25 14:14 08/05/25 14:14 08/05/25 14:14 08/05/25 14:14 08/05/25 14:14 08/05/25 14:12 08/05/25 14:00 08/05/25 13:51 08/05/25 13:50 08/05/25 13:50 08/05/25 13:50 08/05/25 13:50 08/05/25 13:50 08/05/25 13:48 08/05/25 13:42 Nasal Cannula 6 08/05/25 13:40 08/05/25 13:40 08/05/25 13:40 08/05/25 13:40 08/05/25 13:40 08/05/25 13:39 08/05/25 13:30 08/05/25 13:30 08/05/25 13:30 08/05/25 13:30 08/05/25 13:30 08/05/25 13:30 08/05/25 13:21 08/05/25 13:20 08/05/25 13:20 Oxymask 08/05/25 13:19 08/05/25 13:18 Oxymask 6 08/05/25 13:01 08/05/25 13:01 08/05/25 13:01 08/05/25 13:01 08/05/25 13:01 08/05/25 13:00 08/05/25 12:59 08/05/25 12:51 08/05/25 12:48 08/05/25 12:33 Nasal Cannula 5 08/05/25 12:23 Nasal Cannula 5 08/05/25 12:23 Room Air Diagnostic Findings Laboratory Results WBC 18.23 K/ul (4.8-10.8) H 08/05/25 12:49 RBC 5.10 M/uL (4.20-5.40) 08/05/25 12:49 Hgb 14.0 g/dL (12.0-16.0) 08/05/25 12:49 POC Hgb 13.9 g/dl (12.0-16.0) 08/05/25 12:52 Hct 42.3 % (37.0-47.0) 08/05/25 12:49 POC Hct 41 % (37-47) 08/05/25 12:52 MCV 82.9 fL (80.0-100.0) 08/05/25 12:49 MCH 27.5 pg (25.0-34.0) 08/05/25 12:49 MCHC 33.1 g/dL (32.0-36.0) 08/05/25 12:49 RDW Std Deviation 46.2 fL (36.4-46.3) 08/05/25 12:49 RDW Coeff of Rajiv 15.2 % (11.5-14.5) H 08/05/25 12:49 Plt Count 304 K/uL (130-400) 08/05/25 12:49 MPV 9.7 fL (9.4-12.4) 08/05/25 12:49 Immature Gran % (Auto) 0.5 % 08/05/25 12:49 Neut % (Auto) 78.3 % 08/05/25 12:49 Lymph % (Auto) 12.3 % 08/05/25 12:49 Noble % (Auto) 7.3 % 08/05/25 12:49 Eos % (Auto) 0.9 % 08/05/25 12:49 Baso % (Auto) 0.7 % 08/05/25 12:49 Neut # (Auto) 14.27 K/uL (1.40-6.50) H 08/05/25 12:49 Lymph # (Auto) 2.24 K/uL (1.20-3.40) 08/05/25 12:49 Noble # (Auto) 1.33 K/uL (0.11-0.59) H 08/05/25 12:49 Eos # (Auto) 0.17 K/uL (0.00-0.50) 08/05/25 12:49 Baso # (Auto) 0.12 K/uL (0.00-0.20) 08/05/25 12:49 Immature Gran # (Auto) 0.10 K/uL (0.01-0.20) 08/05/25 12:49 PT 10.2 Seconds (9.0-12.0) 08/05/25 12:49 INR 1.0 (0.9-1.1) 08/05/25 12:49 APTT 24 Seconds (21-31) 08/05/25 12:49 PTT Ratio 0.9 08/05/25 12:49 POC Sodium 142 mmol/L (135-144) 08/05/25 12:52 Sodium 141 mmol/L (136-145) 08/05/25 12:49 POC Potassium 3.9 mmol/L (3.3-5.0) 08/05/25 12:52 Potassium 3.9 mmol/L (3.5-5.1) 08/05/25 12:49 POC Chloride 108 mmol/L (101-112) 08/05/25 12:52 Chloride 106 mmol/L (98-107) 08/05/25 12:49 Carbon Dioxide 24 mmol/L (21-32) 08/05/25 12:49 POC Total CO2 23 mmol/L (24-31) L 08/05/25 12:52 Anion Gap 11 (3-11) 08/05/25 12:49 POC Anion Gap 17.0 mmol/L (16-25) 08/05/25 12:52 POC BUN 24 mg/dl (7-18) H 08/05/25 12:52 BUN 23 mg/dl (6-23) 08/05/25 12:49 Creatinine 0.87 mg/dl (0.6-1.2) 08/05/25 12:49 POC Creatinine 0.9 mg/dl (0.6-1.3) 08/05/25 12:52 Est Cr Clr Drug Dosing 38.8 ml/min 08/05/25 12:49 eGFR 66.07 08/05/25 12:49 BUN/Creatinine Ratio 26.4 (10-20) H 08/05/25 12:49 Glucose 115 mg/dl (70-99(Fasting)) H 08/05/25 12:49 POC Glucose (other) 117 mg/dl (70-99) H 08/05/25 12:52 Calcium 9.4 mg/dl (8.6-10.3) 08/05/25 12:49 POC Ioniz Calcium Yojana 1.15 mmol/l (1.12-1.32) 08/05/25 12:52 Total Bilirubin 0.7 mg/dl (0.2-1.0) 08/05/25 12:49 AST 19 U/L (13-39) 08/05/25 12:49 ALT 15 U/L (7-52) 08/05/25 12:49 Alkaline Phosphatase 80 U/L (34-104) 08/05/25 12:49 Total Protein 7.6 gm/dl (6.0-8.3) 08/05/25 12:49 Albumin 4.1 gm/dl (3.4-5.0) 08/05/25 12:49 Globulin 3.5 gm/dl (2.5-4.0) 08/05/25 12:49 Albumin/Globulin Ratio 1.2 (0.9-2) 08/05/25 12:49 Lipase 14 U/L (11-82) 08/05/25 12:49 Urine Color Yellow 08/05/25 14: Urine Appearance Clear (Clear) 08/05/25 14:26 Urine pH 7.0 (4.5-7.5) 08/05/25 14:26 Ur Specific [place] 1.033 (1.000-1.030) H 08/05/25 14:26 Urine Protein Trace (Negative) H 08/05/25 14: Urine Glucose (UA) Negative (Negative) 08/05/25 14: Urine Ketones Trace (Negative) H 08/05/25 14: Urine Blood Negative (Negative) 08/05/25 14: Urine Nitrite Negative (Negative) 08/05/25 14: Urine Bilirubin Negative (Negative) 08/05/25 14:26 Urine Urobilinogen Negative (Negative) 08/05/25 14:26 Ur Leukocyte Esterase 1+ (Negative) H 08/05/25 14:26 Urine WBC (Auto) 6-10 /hpf (0-5) H 08/05/25 14:26 Urine RBC (Auto) 0-2 /hpf (0-2) 08/05/25 14: U Hyaline Cast (Auto) 0-2 /lpf (0-2) 08/05/25 14:26 U Epithel Cells (Auto) 6-10 /hpf (0-2) H 08/05/25 14:26 Urine Bacteria (Auto) None Seen (None Seen) 08/05/25 14: Calcium Oxalate Crystal Present (None Prsent) A 08/05/25 14: Unidentified Crystals Present (None Prsent) A 08/05/25 14:26 Urine Comment 08/05/25 14:26 Adenovirus (PCR) Not Detected (NotDetected) 08/05/25 12:43 B. pertussis DNA (PCR) Not Detected (NotDetected) 08/05/25 12:43 B.parapertussis DNA PCR Not Detected (NotDetected) 08/05/25 12:43 C. pneumoniae DNA (PCR) Not Detected (NotDetected) 08/05/25 12:43 Coronavirus OC43 (PCR) Not Detected (NotDetected) 08/05/25 12:43 Coronavirus HKU1 (PCR) Not Detected (NotDetected) 08/05/25 12:43 Coronavirus 229E (PCR) Not Detected (NotDetected) 08/05/25 12:43 SARS-CoV-2 (PCR) Not Detected (NotDetected) 08/05/25 12:43 Coronavirus NL63 (PCR) Not Detected (NotDetected) 08/05/25 12:43 Human Metapneumovir PCR Not Detected (NotDetected) 08/05/25 12:43 Influenza Type A (PCR) Not Detected (NotDetected) 08/05/25 12:43 Influenza Type B (PCR) Not Detected (NotDetected) 08/05/25 12:43 M. pneumoniae (PCR) Not Detected (NotDetected) 08/05/25 12:43 Parainfluenza 1 (PCR) Not Detected (NotDetected) 08/05/25 12:43 Parainfluenza 2 (PCR) Not Detected (NotDetected) 08/05/25 12:43 Parainfluenza 3 (PCR) Not Detected (NotDetected) 08/05/25 12:43 Parainfluenza 4 (PCR) Not Detected (NotDetected) 08/05/25 12:43 RSV (PCR) Not Detected (NotDetected) 08/05/25 12:43 Entero/Rhino (PCR) Not Detected (NotDetected) 08/05/25 12:[address] 08/05/25 12:42 CT SCAN OF THE CHEST WITH IV CONTRAST CLINICAL HISTORY: Trauma. Hypoxia. COMPARISON STUDY: Chest x-ray dated 08/05/2025. Abdominal CT dated 08/18/2024. TECHNIQUE: Following the IV administration of 93 cc of Optiray 320, CT scan of the thorax was performed from the thoracic inlet to the upper abdomen. Images are reviewed in the axial, sagittal, and coronal planes. IV contrast was administered without complication. A dose lowering technique was utilized adhering to the principles of ALARA. The examination is degraded by motion artifact, as well as by streak artifact from the arms which could not be elevated above the chest. CT DOSE: 921.15 mGy.cm FINDINGS: Thyroid: Imaged portions of the thyroid gland are normal in size and attenuation. Thoracic aorta: There is atherosclerotic calcification of the thoracic aorta, which is normal in caliber and demonstrates standard 3-vessel arch anatomy. No dissection is seen. 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 This has been seen on prior chest x-rays. Pulmonary vasculature: The main pulmonary arteries appear dilated suggesting pulmonary artery hypertension. There are no filling defects identified in the central pulmonary vessels to indicate pulmonary embolus. Note that this examination was not protocoled for evaluation of the pulmonary arteries. Heart: The heart is enlarged and without pericardial effusion. There is coronary artery atherosclerosis. Lungs and pleural spaces: Evaluation of the lung parenchyma is degraded by motion artifact. The trachea and central airways are clear. No pneumothorax is seen. There is elevation of the left diaphragm and dense consolidation at the left lung base which is similar to previous. This likely represents atelectasis. Foci of scarring/atelectasis are seen throughout the right lung. Diffuse interlobular septal thickening is observed. Mediastinum: There is no mediastinal hematoma. Subcentimeter mediastinal lymph nodes are not pathologically enlarged by size criteria. Lizzy: Clear. Axillae: There is no axillary lymphadenopathy. Upper abdomen: Partially visualized upper abdominal viscera is within normal limits. Skeletal structures: The skeletal structures are osteopenic. There are subacute/healing fractures of the right anterolateral 4th and 5th ribs. There are also subacute/healing fractures of the right posterior 9th through 11th ribs. Chronic/healed rib fractures are noted on the left. Degenerative change and mild kyphoscoliosis is noted in the thoracic spine. Arthritic change is seen in the shoulders. No lytic or blastic bony lesions are seen. IMPRESSION: 1. There are subacute/healing right-sided rib fractures as above. 2. Cardiomegaly with intralobular septal thickening. This could represent acute versus chronic congestive change and clinical correlation will be required. 3. There is elevation of the left hemidiaphragm with chronic dependent consolidation at the left lung base. This likely represents atelectasis. Correl ate clinically. 4. 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 This has been seen on prior chest x-rays. 5. Additional findings as above. ACT 112: Negative or not required by law. Electronically signed by: Hernán Bland M.D. 08/05/2025 1:49 PM Chest X-Ray 08/05/25 12:42 XR chest 1V portable CLINICAL HISTORY: Trauma COMPARISON STUDY: 08/15/2024 FINDINGS: Stable cardiomegaly with pulmonary vascular congestion. Inspiration is shallow. There is increased stranding at the left lung base. No other consolidation or pleural effusion. No pneumothorax. Skinfold artifact overlies the right lung. There are a few left-sided rib fractures of uncertain chronicity. IMPRESSION: 1. Left-sided rib fractures of uncertain chronicity with no pneumothorax seen. 2. Atelectasis versus pulmonary consolidation at the left lung base. ACT 112: Negative or not required by law. Electronically signed by: Baron Sanches M.D. 08/05/2025 1:[address] 08/05/25 12:42 CT head/brain wo con CLINICAL HISTORY: dementia, fall at shelter. TECHNIQUE: Multiple axial CT images of the head were obtained without contrast. A dose lowering technique was utilized adhering to the principles of ALARA. COMPARISON: 08/15/2024 FINDINGS: There is stable mild prominence of the ventricles out of proportion to sulci, cerebral atrophy versus normal pressure hydrocephalus. Stable moderate chronic small vessel ischemic change. 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 No intracranial hemorrhage seen. No mass effect or midline shift. No skull fracture seen. Visualized paranasal sinuses and mastoid air cells are clear. IMPRESSION: No acute findings. ACT 112: Negative or not required by law. The above report was generated using voice recognition software. It may contain grammatical, syntax or spelling errors. Electronically signed by: Baron Sanches M.D. 08/05/2025 1:27 PM Hip/Pelvis X-Ray 08/05/25 12:46 XR hip RT 2V w pelvis CLINICAL HISTORY: hip fx COMPARISON: 08/15/2024 FINDINGS: Left femoral gamma nail is partially visualized and there is an old fracture proximal left femur. There is an acute mildly displaced mildly impacted fracture at the right femoral neck. No other fracture or dislocation seen. IMPRESSION: Acute fracture right femoral neck. ACT 112: Negative or not required by law. Electronically signed by: Baron Sanches M.D. 08/05/2025 1:22 PM
[2025-08-05] MEDS: LIDOCAINE 5% 1 PATCH TD SCH (17:39)
[2025-08-05] MEDS: SODIUM CHLORIDE 0.9% 1,000 ML IV ONE (17:42)
[2025-08-05] MEDS: ACETAMINOPHEN 1,000 MG/100 ML VIAL IV SCH ×2 (18:16→18:26)
[2025-08-05] MEDS: DICLOFENAC SOD 1% GEL 100 GM TUBE EXT SCH (19:03)
[2025-08-05] MEDS: cefTRIAXone SODIUM 1,000 MG/50 ML BAG IV SCH (19:03)
[2025-08-05] MEDS: HEPARIN SOD 5,000 UNIT/0.5 ML VIAL SQ SCH (20:24)
[2025-08-05] MEDS: MoRPHine SULFATE 2 MG/ML CARP IV PRN (20:26)
[2025-08-05] MEDS: REMOVE LIDODERM PATCH SCH ×2 (20:27→20:28)
[2025-08-05] MEDS: SERTRALINE HCL 50 MG TABLET PO SCH (20:28)
[2025-08-06] MEDS ORDERED: PHENYLEPHRINE HCL 10 MG/ML VIAL ONE (07:15)
[2025-08-06 07:16] LABS: Hematocrit (blood only) 39.0 % (37.0-47.0); Hemoglobin 12.7 g/dL (12.0-16.0); Mean Corpuscular Hemoglobin 27.3 pg (25.0-34.0); Mean Corpuscular Volume 83.7 fL (80.0-100.0); Platelet Count 253 K/uL (130-400); RDW Standard Deviation 47.0 fL (36.4-46.3); Red Blood Count 4.66 M/uL (4.20-5.40); White Blood Count 18.76 K/ul (4.8-10.8)
--- NOTE | 2025-08-06 07:37 | Orthopedic Progress Note ---
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 After orthopedic consultation discussing the patients treatment options of conservative versus surgical intervention, the patient agreed to a planned hemiarthroplasty. The family would like to treat her for pain and to avoid the risks of bed sores, pulmonary complications, and to give the patient the best chance for ambulation. The patient understands the risks of surgery, which include but are not limited to: bleeding, infection, re-operation, damage to nerves and arteries, continued pain, failure of the hardware, fracture, dislocation, DVT, OK, stroke, and . In addition, the patient is aware of the 20-30% morbidity associated with hip fracture for up to 1 year following a hip fracture. The patient understands all these instructions and explanations; all their questions have been satisfactorily addressed. The patient's family have signed the informed consent was signed and will discuss further with family friend who is an orthopedic surgeon.Continue pain control. NPO with fluids since midnight. The patient has been admitted to the Hospitalist service. The patient is on the add-on list for today. Will plan to proceed with surgery if medically cleared as family wishes to proceed. Ancef and TXA on-call to OR. Admission and Anticipated Discharge Date Admission Date: August 05, 2025 Subjective Patient does not respond to questions. Physical Exam Physical Exam: Resting comfortably. Right hip: Patient moans with palpation over the anterolateral aspect of the right hip. Slightly shortened and internally rotated. BCR < 2 sec. unable to assess motor or sensation Results & Data Vital Signs (Past 12 Hours) Vital Signs Temp Pulse Pulse Resp BP Pulse Ox O2 Del Method 08/06/25 03:08 37.2 C 75 18 128/71 96 Nasal Cannula 08/05/25 22:54 37.2 C 85 20 154/87 H 90 Nasal Cannula 08/05/25 22:09 75 08/05/25 20:06 82 08/05/25 19:42 37.2 C 98 H 18 153/96 H 95 Nasal Cannula O2 Flow Rate 08/06/25 03:08 4.5 08/05/25 22:54 4.5 08/05/25 22:09 08/05/25 20:06 08/05/25 19:42 5 Laboratory Results Laboratory Results WBC 18.76 K/ul (4.8-10.8) H 08/06/25 06:34 RBC 4.66 M/uL (4.20-5.40) 08/06/25 06:34 Hgb 12.7 g/dL (12.0-16.0) 08/06/25 06:34 POC Hgb 13.9 g/dl (12.0-16.0) 08/05/25 12:52 Hct 39.0 % (37.0-47.0) 08/06/25 06:34 POC Hct 41 % (37-47) 08/05/25 12:52 MCV 83.7 fL (80.0-100.0) 08/06/25 06:34 MCH 27.3 pg (25.0-34.0) 08/06/25 06:34 MCHC 32.6 g/dL (32.0-36.0) 08/06/25 06:34 RDW Std Deviation 47.0 fL (36.4-46.3) H 08/06/25 06:34 RDW Coeff of Rajiv 15.5 % (11.5-14.5) H 08/06/25 06:34 Plt Count 253 K/uL (130-400) 08/06/25 06:34 MPV 10.2 fL (9.4-12.4) 08/06/25 06:34 Immature Gran % (Auto) 0.5 % 08/05/25 12:49 Neut % (Auto) 78.3 % 08/05/25 12:49 Lymph % (Auto) 12.3 % 08/05/25 12:49 [place] % (Auto) 7.3 % 08/05/25 12:49 Eos % (Auto) 0.9 % 08/05/25 12:49 Baso % (Auto) 0.7 % 08/05/25 12:49 Neut # (Auto) 14.27 K/uL (1.40-6.50) H 08/05/25 12:49 Lymph # (Auto) 2.24 K/uL (1.20-3.40) 08/05/25 12:49 [place] # (Auto) 1.33 K/uL (0.11-0.59) H 08/05/25 12:49 Eos # (Auto) 0.17 K/uL (0.00-0.50) 08/05/25 12:49 Baso # (Auto) 0.12 K/uL (0.00-0.20) 08/05/25 12:49 Immature Gran # (Auto) 0.10 K/uL (0.01-0.20) 08/05/25 12:49 PT 10.2 Seconds (9.0-12.0) 08/05/25 12:49 INR 1.0 (0.9-1.1) 08/05/25 12:49 APTT 24 Seconds (21-31) 08/05/25 12:49 PTT Ratio 0.9 08/05/25 12:49 POC Sodium 142 mmol/L (135-144) 08/05/25 12:52 Sodium 141 mmol/L (136-145) 08/05/25 12:49 POC Potassium 3.9 mmol/L (3.3-5.0) 08/05/25 12:52 Potassium 3.9 mmol/L (3.5-5.1) 08/05/25 12:49 POC Chloride 108 mmol/L (101-112) 08/05/25 12:52 Chloride 106 mmol/L (98-107) 08/05/25 12:49 Carbon Dioxide 24 mmol/L (21-32) 08/05/25 12:49 POC Total CO2 23 mmol/L (24-31) L 08/05/25 12:52 Anion Gap 11 (3-11) 08/05/25 12:49 POC Anion Gap 17.0 mmol/L (16-25) 08/05/25 12:52 POC BUN 24 mg/dl (7-18) H 08/05/25 12:52 BUN 23 mg/dl (6-23) 08/05/25 12:49 Creatinine 0.87 mg/dl (0.6-1.2) 08/05/25 12:49 POC Creatinine 0.9 mg/dl (0.6-1.3) 08/05/25 12:52 Est Cr Clr Drug Dosing 38.8 ml/min 08/05/25 12:49 eGFR 66.07 08/05/25 12:49 BUN/Creatinine Ratio 26.4 (10-20) H 08/05/25 12:49 Glucose 115 mg/dl (70-99(Fasting)) H 08/05/25 12:49 POC Glucose (other) 117 mg/dl (70-99) H 08/05/25 12:52 Calcium 9.4 mg/dl (8.6-10.3) 08/05/25 12:49 POC Ioniz Calcium Yojana 1.15 mmol/l (1.12-1.32) 08/05/25 12:52 Total Bilirubin 0.7 mg/dl (0.2-1.0) 08/05/25 12:49 AST 19 U/L (13-39) 08/05/25 12:49 ALT 15 U/L (7-52) 08/05/25 12:49 Alkaline Phosphatase 80 U/L (34-104) 08/05/25 12:49 Total Protein 7.6 gm/dl (6.0-8.3) 08/05/25 12:49 Albumin 4.1 gm/dl (3.4-5.0) 08/05/25 12:49 Globulin 3.5 gm/dl (2.5-4.0) 08/05/25 12:49 Albumin/Globulin Ratio 1.2 (0.9-2) 08/05/25 12:49 Lipase 14 U/L (11-82) 08/05/25 12:49 Urine Color Yellow 08/05/25 14:26 Urine Appearance Clear (Clear) 08/05/25 14:26 Urine pH 7.0 (4.5-7.5) 08/05/25 14:26 Ur Specific [place] 1.033 (1.000-1.030) H 08/05/25 14:26 Urine Protein Trace (Negative) H 08/05/25 14:26 Urine Glucose (UA) Negative (Negative) 08/05/25 14:26 Urine Ketones Trace (Negative) H 08/05/25 14:26 Urine Blood Negative (Negative) 08/05/25 14: Urine Nitrite Negative (Negative) 08/05/25 14: Urine Bilirubin Negative (Negative) 08/05/25 14: Urine Urobilinogen Negative (Negative) 08/05/25 14:26 Ur Leukocyte Esterase 1+ (Negative) H 08/05/25 14:26 Urine WBC (Auto) 6-10 /hpf (0-5) H 08/05/25 14:26 Urine RBC (Auto) 0-2 /hpf (0-2) 08/05/25 14:26 U Hyaline Cast (Auto) 0-2 /lpf (0-2) 08/05/25 14:26 U Epithel Cells (Auto) 6-10 /hpf (0-2) H 08/05/25 14:26 Urine Bacteria (Auto) None Seen (None Seen) 08/05/25 14:26 Calcium Oxalate Crystal Present (None Prsent) A 08/05/25 14:26 Unidentified Crystals Present (None Prsent) A 08/05/25 14:26 Urine Comment 08/05/25 14:26 Adenovirus (PCR) Not Detected (NotDetected) 08/05/25 12:43 B. pertussis DNA (PCR) Not Detected (NotDetected) 08/05/25 12:43 B.parapertussis DNA PCR Not Detected (NotDetected) 08/05/25 12:43 C. pneumoniae DNA (PCR) Not Detected (NotDetected) 08/05/25 12:43 Coronavirus OC43 (PCR) Not Detected (NotDetected) 08/05/25 12:43 Coronavirus HKU1 (PCR) Not Detected (NotDetected) 08/05/25 12:43 Coronavirus 229E (PCR) Not Detected (NotDetected) 08/05/25 12:43 SARS-CoV-2 (PCR) Not Detected (NotDetected) 08/05/25 12:43 Coronavirus NL63 (PCR) Not Detected (NotDetected) 08/05/25 12:43 Human Metapneumovir PCR Not Detected (NotDetected) 08/05/25 12:43 Influenza Type A (PCR) Not Detected (NotDetected) 08/05/25 12:43 Influenza Type B (PCR) Not Detected (NotDetected) 08/05/25 12:43 M. pneumoniae (PCR) Not Detected (NotDetected) 08/05/25 12:43 Parainfluenza 1 (PCR) Not Detected (NotDetected) 08/05/25 12:43 Parainfluenza 2 (PCR) Not Detected (NotDetected) 08/05/25 12:43 Parainfluenza 3 (PCR) Not Detected (NotDetected) 08/05/25 12:43 Parainfluenza 4 (PCR) Not Detected (NotDetected) 08/05/25 12:43 RSV (PCR) Not Detected (NotDetected) 08/05/25 12:43 Entero/Rhino (PCR) Not Detected (NotDetected) 08/05/25 12:[address] 08/05/25 12:42 CT SCAN OF THE CHEST WITH IV CONTRAST CLINICAL HISTORY: Trauma. Hypoxia. COMPARISON STUDY: Chest x-ray dated 08/05/2025. Abdominal CT dated 08/18/2024. TECHNIQUE: Following the IV administration of 93 cc of Optiray 320, CT scan of the thorax was performed from the thoracic inlet to the upper abdomen. Images are reviewed in the axial, sagittal, and coronal planes. IV contrast was administered without complication. A dose lowering technique was utilized adhering to the principles of ALARA. The examination is degraded by motion artifact, as well as by streak artifact from the arms which could not be elevated above the chest. CT DOSE: 921.15 mGy.cm FINDINGS: Thyroid: Imaged portions of the thyroid gland are normal in size and attenuation. Thoracic aorta: There is atherosclerotic calcification of the thoracic aorta, which is normal in caliber and demonstrates standard 3-vessel arch anatomy. No dissection is seen. 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 This has been seen on prior chest x-rays. Pulmonary vasculature: The main pulmonary arteries appear dilated suggesting pulmonary artery hypertension. There are no filling defects identified in the central pulmonary vessels to indicate pulmonary embolus. Note that this examination was not protocoled for evaluation of the pulmonary arteries. Heart: The heart is enlarged and without pericardial effusion. There is coronary artery atherosclerosis. Lungs and pleural spaces: Evaluation of the lung parenchyma is degraded by motion artifact. The trachea and central airways are clear. No pneumothorax is seen. There is elevation of the left diaphragm and dense consolidation at the left lung base which is similar to previous. This likely represents atelectasis. Foci of scarring/atelectasis are seen throughout the right lung. Diffuse interlobular septal thickening is observed. Mediastinum: There is no mediastinal hematoma. Subcentimeter mediastinal lymph nodes are not pathologically enlarged by size criteria. Lizzy: Clear. Axillae: There is no axillary lymphadenopathy. Upper abdomen: Partially visualized upper abdominal viscera is within normal limits. Skeletal structures: The skeletal structures are osteopenic. There are subacute/healing fractures of the right anterolateral 4th and 5th ribs. There are also subacute/healing fractures of the right posterior 9th through 11th ribs. Chronic/healed rib fractures are noted on the left. Degenerative change and mild kyphoscoliosis is noted in the thoracic spine. Arthritic change is seen in the shoulders. No lytic or blastic bony lesions are seen. IMPRESSION: 1. There are subacute/healing right-sided rib fractures as above. 2. Cardiomegaly with intralobular septal thickening. This could represent acute versus chronic congestive change and clinical correlation will be required. 3. There is elevation of the left hemidiaphragm with chronic dependent consolidation at the left lung base. This likely represents atelectasis. Correlate clinically. 4. 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 This has been seen on prior chest x-rays. 5. Additional findings as above. ACT 112: Negative or not required by law. Electronically signed by: Hernán Bland M.D. 08/05/2025 1:49 PM Chest X-Ray 08/05/25 12:42 XR chest 1V portable CLINICAL HISTORY: Trauma COMPARISON STUDY: 08/15/2024 FINDINGS: Stable cardiomegaly with pulmonary vascular congestion. Inspiration is shallow. There is increased stranding at the left lung base. No other consolidation or pleural effusion. No pneumothorax. Skinfold artifact overlies the right lung. There are a few left-sided rib fractures of uncertain chronicity. IMPRESSION: 1. Left-sided rib fractures of uncertain chronicity with no pneumothorax seen. 2. Atelectasis versus pulmonary consolidation at the left lung base. ACT 112: Negative or not required by law. Electronically signed by: Baron Sanches M.D. 08/05/2025 1:[address] 08/05/25 12:42 CT head/brain wo con CLINICAL HISTORY: dementia, fall at retirement. TECHNIQUE: Multiple axial CT images of the head were obtained without contrast. A dose lowering technique was utilized adhering to the principles of ALARA. COMPARISON: 08/15/2024 FINDINGS: There is stable mild prominence of the ventricles out of proportion to sulci, cerebral atrophy versus normal pressure hydrocephalus. Stable moderate chronic small vessel ischemic change. 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 No intracranial hemorrhage seen. No mass effect or midline shift. No skull fracture seen. Visualized paranasal sinuses and mastoid air cells are clear. IMPRESSION: No acute findings. ACT 112: Negative or not required by law. The above report was generated using voice recognition software. It may contain grammatical, syntax or spelling errors. Electronically signed by: Baron Sanches M.D. 08/05/2025 1:27 PM Hip/Pelvis X-Ray 08/05/25 12:46 XR hip RT 2V w pelvis CLINICAL HISTORY: hip fx COMPARISON: 08/15/2024 FINDINGS: Left femoral gamma nail is partially visualized and there is an old fracture proximal left femur. There is an acute mildly displaced mildly impacted fracture at the right femoral neck. No other fracture or dislocation seen. IMPRESSION: Acute fracture right femoral neck. ACT 112: Negative or not required by law. Electronically signed by: Baron Sanches M.D. 08/05/2025 1:22 PM
[2025-08-06 07:40] LABS: Anion Gap 9.0 (3-11); Blood Urea Nitrogen 20.0 mg/dl (6-23); Calcium 8.6 mg/dl (8.6-10.3); Carbon Dioxide 24.0 mmol/L (21-32); Chloride 111.0 mmol/L (98-107); Creatinine Clr Calc Pharmacy 37.0 ml/min; Glucose 108.0 mg/dl (70-99(Fasting)); Magnesium 1.9 mg/dl (1.7-2.4); Potassium 3.4 mmol/L (3.5-5.1); Sodium 144.0 mmol/L (136-145)
--- NOTE | 2025-08-06 08:21 | Electrocardiogram Report ---
Test Reason : Blood Pressure : */* mmHG Vent. Rate : 109 BPM Atrial Rate : 109 BPM P-R Int : 156 ms QRS Dur : 136 ms QT Int : 400 ms P-R-T Axes : 56 66 -10 degrees QTcB Int : 538 ms Sinus tachycardia with Premature atrial complexes Right bundle branch block T wave abnormality, consider inferior ischemia Abnormal ECG When compared with ECG of 16-Aug-2024 16:14, Premature atrial complexes are now Present Vent. rate has increased by 46 bpm Confirmed by Mohan Shaikh ([id number]) on 08/06/2025 8:21:01 AM Referred By: REFERRED SELF Confirmed By: Mohan Shaikh
[2025-08-06] MEDS: CHOLECALCIFEROL 25 MCG (1000 UNITS) TAB PO SCH (08:48)
[2025-08-06] MEDS: CETIRIZINE HCL 10 MG TABLET PO SCH (08:48)
--- NOTE | 2025-08-06 09:48 | Hospitalist Progress Note ---
Date of Service August 06, 2025 Assessment & Plan (1) Femur fracture, right: Plan 84 yo F with PMH HTN, h/o stroke, dementia presented to ER from [facility] for unwitnessed fall today. Per staff she didn't seem to be returning to her baseline. Was noted to be hypoxic and sent to ER. Per patient's daughter at bedside patient has "good days and bad days" and states yesterday she seemed lethargic and wasn't very responsive. States her brother saw patient couple days before and she was more responsive. States patient with dementia and not oriented and at baseline does not recognize family members. [facility] patient with frequent falls and has known fall last year with left sided rib fractures. Denies any known fever or chills or cough. [facility] patient has had steady decline and last month her sertraline was increased secondary to tearfulness and decreased appetite and decreased oral intake. States since the increase of medication she seems less tearful. She is being managed for the following: Femur fracture, right: Unwitnessed Fall: Presented from [facility] for unwitnessed fall, didn't seem to be returning to baseline status and noted to be hypoxic by staff DYE [employer]ER. Daughter reports history frequent falls. CT head: No acute findings Hip/pelvis xray: Acute fracture right femoral neck. Connelly catheter placed in ER, continue Pain control with scheduled Tylenol, lidocaine patch, oxycodone and morphine as needed moderate-severe pain Given advanced dementia and comorbidities, pt appears to be mod to severe risk for much needed hip sx NPO status in case of procedure Ortho on board CBC, BMP in a.m. Hypoxia: In ER 83% on RA up to 91% on 5L and 96% on 6L oxymask CT chest: There are subacute/healing fractures of the right anterolateral 4th and 5th ribs. There are also subacute/healing fractures of the right posterior 9th through 11th ribs. Chronic/healed rib fractures are noted on the left. Cardiomegaly with intralobular septal thickening. This could represent acute versus chronic congestive change and clinical correlation will be required. There is elevation of the left hemidiaphragm with chronic dependent consolidation at the left lung base. This likely represents atelectasis. 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 This has been seen on prior chest x-rays. Negative respiratory biofire panel, Procal wnl. Has old and subacute rib fractures. Suspect atelectasis. Ddx: pneumonia Continue oxygen as needed Incentive spirometry if pt able to participate Likely not pneumonia, will get BNP. #Abnormal Urinalysis: f/u urine culture. Rocephin for now pending culture #Tachycardia: Noted tachycardia in ER. Suspect sinus tachycardia likely from pain, resolved. Alzheimer dementia: Daughter reports noted decline past couple of months. Feels pt at recent baseline. Monitor for delirium. Continue sertraline. High risk for delirium. HTN (hypertension): Continue amlodipine Cerebellar stroke: Hold aspirin for now in case of procedure Admit med tele DNR/DNI Follows with provider at [facility] for routine care Admission and Anticipated Discharge Date Admission Date: August 05, 2025 Subjective Patient was seen and examined at bedside. Patient was lying in bed, on 5 L oxygen via nasal cannula, demented/confused appearance. ROS not able due to cognition status. Physical Exam Physical Exam: General: lying on left side with her right leg over pillow in apparent position of comfort, thin elderly female, appears demented/weak/frail. on 5L NC O2 Head: normocephalic, atraumatic Eyes: conjunctiva non-injected, anicteric ENT: normal inspection external ears, nose, mucous membranes moist Neck: supple, trachea midline Lungs: limited exam secondary to patient participation, diminished breath sounds CV: RRR, no pretibial edema Abd: normal BS, soft, no apparent tenderness to palpation Ext: RLE: Rt leg appears to be shortened, +wincing with palpation of right hip, brisk capillary refill Neuro: Alert, appears to be in pain with wincing, does not follow commands, intermittent flailing of arms noted and quickly calms with gentle touch and talking/interaction, does not follow commands Skin: warm, dry Results & Data Results & Data Vital Signs (Past 12 Hours) Vital Signs Temp Pulse Pulse Resp BP Pulse Ox O2 Del Method 08/06/25 09:24 Nasal Cannula 08/06/25 08:22 36.7 C 77 20 140/76 94 Nasal Cannula 08/06/25 03:08 37.2 C 75 18 128/71 96 Nasal Cannula 08/05/25 22:54 37.2 C 85 20 154/87 H 90 Nasal Cannula 08/05/25 22:09 75 O2 Flow Rate 08/06/25 09:24 5 08/06/25 08:22 4.5 08/06/25 03:08 4.5 08/05/25 22:54 4.5 08/05/25 22:09
[2025-08-06] MEDS ORDERED: ATROPINE SULFATE 0.1 MG/ML 10ML SYR IV PRN (10:03)
[2025-08-06] MEDS: POTASSIUM CHLORIDE / WTR 10 MEQ/100 ML PLCT IV SCH (10:03)
[2025-08-06] MEDS ORDERED: ONDANSETRON INJ 2 MG/ML 2 ML VIAL IV PRN (10:03)
--- NOTE | 2025-08-06 10:03 | Anesthesiology Consultation ---
Date of Service August 06, 2025 Assessment & Plan Chart Review Chart Review: Acceptable Risk for Surgery, Patient NOT seen in Pre Admission Testing and temporary data entry clerk initiated Consults Requested none History Surgery Operation Date: 08/06/25 11:00 Proposed Procedures p Bipolar Hip Prosthesis - Emmett Katelin Huog MD Height/Weight Height: 5 ft 2 in Weight: 60 kg Allergies Allergy/AdvReac Type Severity Reaction Status Date / Time No Known Allergies Allergy Unverified 08/15/24 14:41 Medications Home Medications Medication Instructions Recorded Confirmed Last Taken Milk of Magnesia 30 ml PO DAILY PRN Constipation 08/15/24 08/05/25 Unknown amlodipine 2.5 mg tablet 2.5 mg PO DAILY 08/15/24 08/05/25 08/04/25 aspirin 81 mg tablet,delayed 81 mg PO DAILY 08/15/24 08/05/25 08/04/25 release [id number]-[id number] 250 2 tab PO Q8H PRN Headache 08/15/24 08/05/25 Unknown mg-250 mg-65 mg tablet (Headache Relief ([id number])) bisacodyl 10 mg rectal suppository 10 mg IN DAILY PRN Constipation 08/15/24 08/05/25 08/04/25 cetirizine 10 mg tablet 10 mg PO DAILY 08/15/24 08/05/25 08/04/25 cholecalciferol (vitamin D3) 50 50 mcg PO DAILY 08/15/24 08/05/25 Unknown mcg (2,000 unit) tablet diclofenac sodium 1 % topical gel 4 g topical QID 08/05/25 08/05/25 08/04/25 sertraline 150 mg capsule 150 mg PO PM 08/05/25 08/05/25 08/04/25 Active Medications Generic Name Dose Route Start Last Admin Trade Name Freq PRN Reason Stop Dose Admin Amlodipine Besylate 2.5 mg 08/06/25 09:00 08/06/25 08:47 Amlodipine Besylate 5 Mg Tab PO 09/05/25 08:59 Not Given DAILY JODI Cetirizine HCl 10 mg 08/06/25 09:00 08/06/25 08:48 Cetirizine Hcl 10 Mg Tablet PO 09/05/25 08:59 Not Given DAILY JODI Diclofenac Sodium 4 gm 08/05/25 17:45 08/05/25 20:24 Diclofenac Sod 1% Gel 100 Gm Tube EXT 09/04/25 17:44 Not Given QID [facility] Protocol Heparin Sodium (Porcine) 5,000 units 08/05/25 21:00 08/05/25 20:24 Heparin Sod 5,000 Unit/0.5 Ml Vial SQ 09/04/25 20:59 5,000 units Q12 JODI Administration Ceftriaxone Sodium 1,000 mg in 50 mls @ 100 mls/hr 08/05/25 17:30 08/05/25 20:08 Rocephin IV 08/10/25 17:29 Infused Q24H JODI Infusion Acetaminophen 1,000 mg in 100 mls @ 400 mls/hr 08/05/25 17:45 08/06/25 02:30 Ofirmev IV 08/08/25 17:44 Infused Q8H JODI Infusion Lidocaine 1 patch 08/05/25 17:30 08/05/25 17:39 Lidocaine 5% 1 Patch TD 09/04/25 17:29 Not Given QAM JODI Miscellaneous 1 each 08/05/25 21:00 08/05/25 20:27 Remove Lidoderm Patch N/A 09/04/25 20:59 1 each DAILY@2100 [facility] Administration Miscellaneous 1 each 08/05/25 21:00 08/05/25 20:28 Remove Lidoderm Patch N/A 09/04/25 20:59 Not Given DAILY@2100 JODI Morphine Sulfate 2 mg 08/05/25 17:23 08/06/25 09:46 Morphine Sulfate 2 Mg/Ml Carp IV 08/19/25 17:22 2 mg Q6H PRN Administration Mod-Sev Pain (Scale 4-10) Sertraline HCl 150 mg 08/05/25 21:00 08/05/25 20:28 Sertraline Hcl 50 Mg Tablet PO 09/04/25 20:59 Not Given PM [facility] Vitamin D 50 mcg 08/06/25 09:00 08/06/25 08:48 Cholecalciferol 25 Mcg (1000 Units) Tab PO 09/05/25 08:59 Not Given DAILY [facility] Past Medical History Medical History Anemia Alzheimer dementia Cerebellar stroke HTN (hypertension) Past Surgical History Surgical History No pertinent past surgical history Social History Smoking Status: Former smoker Do You Dip or Chew Tobacco: No Hx Alcohol Use: No Hx Substance Use: No substance use type: does not use Physical Exam Vital Signs Last Vital Signs Temp 36.7 C 08/06/25 08:22 Pulse 77 08/06/25 08:22 Resp 20 08/06/25 08:22 BP 140/76 08/06/25 08:22 Pulse Ox 94 08/06/25 08:22 O2 Del Method Nasal Cannula 08/06/25 09:24 O2 Flow Rate 5 08/06/25 09:24 Testing Laboratory Results 08/06/25 06:34 08/06/25 06:34 PT 10.2 Seconds (9.0-12.0) 08/05/25 12:49 INR 1.0 (0.9-1.1) 08/05/25 12:49 APTT 24 Seconds (21-31) 08/05/25 12:49 Urine Color Yellow 08/05/25 14:26 Urine Appearance Clear (Clear) 08/05/25 14:26 Urine pH 7.0 (4.5-7.5) 08/05/25 14:26 Ur Specific [place] 1.033 (1.000-1.030) H 08/05/25 14:26 Urine Protein Trace (Negative) H 08/05/25 14:26 Urine Glucose (UA) Negative (Negative) 08/05/25 14:26 Urine Ketones Trace (Negative) H 08/05/25 14:26 Urine Nitrite Negative (Negative) 08/05/25 14:26 Ur Leukocyte Esterase 1+ (Negative) H 08/05/25 14:26 Urine WBC (Auto) 6-10 /hpf (0-5) H 08/05/25 14:26 Urine RBC (Auto) 0-2 /hpf (0-2) 08/05/25 14:26 U Hyaline Cast (Auto) 0-2 /lpf (0-2) 08/05/25 14:26 U Epithel Cells (Auto) 6-10 /hpf (0-2) H 08/05/25 14:26 Urine Bacteria (Auto) None Seen (None Seen) 08/05/25 14:26 Electrocardiogram Date: 08/05/25 Findings: + RBBB and + ST @ (109) PACs
[2025-08-06] MEDS ORDERED: ROCURONIUM BROMIDE 10 MG/ML 5 ML VIAL IV ONE ×2 (11:12→13:26)
[2025-08-06] MEDS ORDERED: ONDANSETRON INJ 2 MG/ML 2 ML VIAL ONE (11:12)
[2025-08-06] MEDS ORDERED: PROPOFOL IV EMULSION 10 MG/ML 20 ML VIAL IV ONE (11:12)
[2025-08-06] MEDS ORDERED: LIDOCAINE 2% 2 ML VIAL/AMP(20MG/ML) INFIL ONE (11:12)
[2025-08-06] MEDS: TRANEXAMIC ACID / 0.7% NACL 1,000 MG/100 ML BAG IV SCH ×2 (12:15→13:33)
[2025-08-06] MEDS ORDERED: ePHEDrine sulfate 50 MG/5 ML SYR ONE (12:29)
[2025-08-06] MEDS ORDERED: PHENYLEPHRINE 100MCG/ML 5ML SYR ONE (12:29)
[2025-08-06] MEDS: ROPIVACAINE 0.5% HCL/PF 246 MG, Ketorolac (*for OR use only*) 30 MG, EPINEPHrine 30MG/3... INFIL SCH (13:30)
[2025-08-06] MEDS ORDERED: SUGAMMADEX SODIUM 200 MG/2 ML VIAL IV ONE (13:50)
[2025-08-06] MEDS: BUPIVACAINE 0.5 % 5 MG/1 ML MPF 30ML VIAL ONE (14:19)
[2025-08-06] MEDS: LIDOCAINE 1% LOCAL 20 ML VIAL ONE (14:20)
--- NOTE | 2025-08-06 14:35 | Post Operative Brief Note ---
Immediate Post Op Note Date of Surgery August 06, 2025 Pre & Post Diagnosis Operation Date: 08/06/25 11:00 Pre-Op Diagnosis: Right Femoral Neck Fracture Post-Op Diagnosis: Right Femoral Neck Fracture I identified the patient and participated in the time-out.: Yes Procedure Operation Date: 08/06/25 11:00 Actual Procedures p Right Hip Hemiarthroplasty, Cemented(Right) - Emmett Hugo MD Surgeon Emmett Hugo MD Shipfitter Apprentice Dominga Castañeda PA-C (No fellow avail) Estimated Blood Loss 100 Findings Consistent with Post-Op Diagnosis Fluids 1000 cc Specimens Right femoral Head Drains Other (Connelly) Anesthesia Type General
--- NOTE | 2025-08-06 14:36 | Operative Report ---
Post Operative Report Pre & Post Diagnosis Operation Date: 08/06/25 11:00 Pre-Op Diagnosis: Right Femoral Neck Fracture Post-Op Diagnosis: Right Femoral Neck Fracture I identified the patient and participated in the time-out.: Yes Procedure Operation Date: 08/06/25 11:00 Actual Procedures p Right Hip Hemiarthroplasty, Cemented(Right) - Emmett Hugo MD Surgeon Emmett Hugo MD Bio Medical Technician Dominga Castañeda PA-C (No fellow avail) Estimated Blood Loss 100 Findings See Below Displaced comminuted right femoral neck fracture Fluids 1000 cc Specimens Right femoral Head Drains Connelly Anesthesia Type General Complications none Indications The patient is a 84 year old female who sustained a 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 After orthopedic consulting discussing the patients treatment options of conservative versus surgical intervention, the family has agreed for a planned hemiarthroplasty. Since the family would like to decrease the patient's pain, avoid the risks of bed sores, pulmonary complications, they would like to proceed with surgery. The patient's family understands the risks of surgery, which include but are not limited to: bleeding, infection, re-operation, damage to nerves and arteries, continued pain, failure of the hardware, dislocation, DVT, and . In addition, the patient's family is aware of the 20-30% morbidity associated with hip fracture for up to 1 year following a hip fracture. The patient's family understands all these instructions and explanations; all their questions have been satisfactorily addressed. The patient's family has elected to proceed with surgery and the informed consent was signed. Description of Procedure Dominga Castañeda PA-C is assisting with positioning, retraction, reducing the hip, and closure due to fellow not available. IMPLANTS: 1) 7 x 120, Echo Fx Cemented Stem (Sierra/Biomet). 2) Femoral Head 28mm Diameter, + 0 mm Neck Length. 3) 45 mm Bipolar Shell. 4) Distal Centralizer. 5) Palacos cement x 2 PROCEDURE: The patient was taken to the Operating Room and placed in the lateral position with Stulberg following Spinal anesthesia administration. A multidisciplinary time-out was performed identifying my initials on the left lower limb as the correct and operative limb. Prior to the incision being made, 2 grams of intravenous Ancef were given. The right lower extremity was prepped in the standard fashion. The trochanter was marked as was the planned incision 1/3 proximal and 2/3 distal to the tip of the greater trochanter. The incision was injected with a 50:50 mixture of 1% Lidocaine epi and 0.5% Bupivacaine plain for a total of 10cc. A standard posterior approach was made. The planned incision was carried down through the Tensor Fascia Radha, which was then split in-line with its fibers. The Gluteus Kirby was bluntly dissected. The Piriformis and short external rotators were dissected off the capsule and femur and tagged for later repair. The fracture was easily identified as it had impaled the posterior capsule. The capsule was incised and freed off the fracture fragments. The Neck cut was made to allow removal of the femoral head and comminuted fragments. The femoral canal was prepared with Box osteotome, followed by a canal finder. The femur was sequentially broached in the standard fashion, and trial heads were placed. Portable x-ray was brought in to ensure adequate proper alignment, fill of the canal, head size, and leg length. Portable x-ray showed good canal fill and good position. The trial components were removed, and the wound and femoral canal were copiously irrigated and dried. The femur was cemented using 3rd generation technique followed by placement of the components in the standard fashion and the hip reduced. There was excellent stability with no sense of dislocation with 30 degrees adduction, flexion 90 degrees, and internal rotation to 60 degrees. The wounds were copiously irrigated. The External rotators and capsule were closed over bone bridges with #2 FiberWire. The Tensor Fascia Radha was closed with #1 and 0 Stratafix. The subcutaneous fat had a few stay sutures placed using 2-0 Vicryl. The subcutaneous tissue was closed with 3-0 Vicryl. The skin was closed with Mershon. The incisions were covered with Xeroform, 4 x 4's, ABD, and foam tape. The patient was transferred to her hospital bed and taken to the PACU in stable condition. The sponge and needle counts were correct. Post-op Instructions: The patient was admitted back to the Hospitalist service on the Med/Surg floor. Final x-rays will be obtained in the PACU. The patient will be WBAT with a walker and assistance. The patient will be seen by PT/OT. Total hip precautions will be followed. The patient's labs will be checked in the am. DVT prophylaxis will be with TEDs, mechanical devices and ASA in the AM. I attest to the content of the Intraoperative Record and any orders documented therein. Any exceptions are noted below.
--- NOTE | 2025-08-06 14:51 | Operative Report ---
Post Operative Report Pre & Post Diagnosis Operation Date: 08/06/25 11:00 Pre-Op Diagnosis: Right Femoral Neck Fracture Post-Op Diagnosis: Right Femoral Neck Fracture I identified the patient and participated in the time-out.: Yes Procedure Operation Date: 08/06/25 11:00 Actual Procedures p Right Hip Hemiarthroplasty, Cemented(Right) - Emmett Hugo MD Surgeon Emmett Hugo M.D. Acoustic Intelligence Specialist Dominga Castañeda PA-C (No fellow avail) Estimated Blood Loss 100 Findings Consistent with Post-Op Diagnosis Specimens Bone and soft tissue Anesthesia Type Spinal MAC Description of Procedure Patient was taken to the operating room and placed under general anesthesia. They were given 2 g of IV Ancef for surgical prophylaxis and 1 gm IV TXA preoperatively for bleeding prophylaxis. Time out was performed. They were prepped and draped in routine sterile fashion. I was present during the entire case and assisted with positioning, draping, instrumentation, closure and dressings. Please see Dr. Hugo's operative report for further details regarding today's procedure. Patient was awakened and transferred to the recovery room in stable condition. I attest to the content of the Intraoperative Record and any orders documented therein. Any exceptions are noted below.
--- NOTE | 2025-08-06 15:04 | XRay Report ---
One view of the right hip is submitted for review. Findings: There is a right femoral head and neck replacement. Gas is seen within the soft tissues, consistent with recent surgery. 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 No other osseous abnormality is identified. There are no radiopaque foreign bodies. Impression: Right hip replacement Electronically signed by Michael Freitas 08-06-2025 3:04 PM
--- NOTE | 2025-08-06 16:00 | Anesthesiology Progress Note ---
Date of Service August 06, 2025 Anesthesia Post Procedure Vital Signs Vital Signs: Temp Pulse Pulse Pulse Resp BP Pulse Ox 08/06/25 15:49 37.2 C 92 H 16 135/76 93 08/06/25 15:20 36.7 C 88 16 144/78 H 94 08/06/25 15:10 91 H 12 150/92 H 92 08/06/25 15:00 92 H 14 150/84 H 94 08/06/25 14:53 36.5 C 94 H 12 163/86 H 96 08/06/25 09:24 08/06/25 08:22 36.7 C 77 20 140/76 94 08/06/25 03:08 37.2 C 75 18 128/71 96 08/05/25 22:54 37.2 C 85 20 154/87 H 90 08/05/25 22:09 75 08/05/25 20:06 82 08/05/25 19:42 37.2 C 98 H 18 153/96 H 95 08/05/25 19:25 08/05/25 17:52 08/05/25 17:52 36.5 C 86 18 118/65 94 08/05/25 17:32 99 H 08/05/25 17:23 36.9 C 86 18 118/65 94 08/05/25 16:00 103 H 19 108/73 93 O2 Del Method O2 Flow Rate 08/06/25 15:49 Oxymask 3 08/06/25 15:20 Oxymask 3 08/06/25 15:10 Oxymask 4 08/06/25 15:00 Oxymask 6 08/06/25 14:53 Oxymask 8 08/06/25 09:24 Nasal Cannula 5 08/06/25 08:22 Nasal Cannula 4.5 08/06/25 03:08 Nasal Cannula 4.5 08/05/25 22:54 Nasal Cannula 4.5 08/05/25 22:09 08/05/25 20:06 08/05/25 19:42 Nasal Cannula 5 08/05/25 19:25 Nasal Cannula 5 08/05/25 17:52 Nasal Cannula 5 08/05/25 17:52 Room Air 5 08/05/25 17:32 08/05/25 17:23 Nasal Cannula 5 08/05/25 16:00 Nasal Cannula 5 Pain Intensity Right Hip: Pain Intensity: 10 Transfer of Care Handoff Completed per policy Notes Mental Status: alert / awake / arousable Patient Amnestic to Procedure: Yes Nausea / Vomiting: adequately controlled Pain: adequately controlled Airway Patency, RR, SpO2: stable & adequate BP & HR: stable & adequate Hydration State: stable & adequate Anesthetic Complications: no major complications apparent and Pt Satisfied with anesthetic care
[2025-08-06] MEDS: CeleBREX 200 MG CAP PO SCH (16:23)
[2025-08-06] MEDS: LACTATED RINGER'S 1,000 ML IV SCH (16:23)
[2025-08-06] MEDS: ACETAMINOPHEN 500 MG TAB PO SCH (16:23)
[2025-08-06] MEDS: FAMOTIDINE 20 MG TAB PO SCH (16:23)
--- NOTE | 2025-08-06 19:17 | XRay Report ---
COMPARISON: Earlier today FINDINGS: Status post bipolar right hip replacement. Standard alignment. No fractures. Postsurgical changes in soft tissues. IMPRESSION: Satisfactory postsurgical changes. Electronically signed by Jesse Lemus 08-06-2025 7:17 PM
[2025-08-07 07:28] LABS: Hematocrit (blood only) 32.9 % (37.0-47.0); Hemoglobin 10.6 g/dL (12.0-16.0); Immature Granulocytes # (auto) 0.06 K/uL (0.01-0.20); Immature Granulocytes % (auto) 0.4 %; Mean Corpuscular Hemoglobin 27.4 pg (25.0-34.0); Mean Corpuscular Volume 85.0 fL (80.0-100.0); Platelet Count 227 K/uL (130-400); RDW Standard Deviation 47.8 fL (36.4-46.3); Red Blood Count 3.87 M/uL (4.20-5.40); White Blood Count 15.87 K/ul (4.8-10.8)
[2025-08-07 07:46] LABS: Anion Gap 7.0 (3-11); Blood Urea Nitrogen 19.0 mg/dl (6-23); Calcium 8.3 mg/dl (8.6-10.3); Carbon Dioxide 25.0 mmol/L (21-32); Chloride 111.0 mmol/L (98-107); Creatinine Clr Calc Pharmacy 44.6 ml/min; Glucose 116.0 mg/dl (70-99(Fasting)); Magnesium 1.9 mg/dl (1.7-2.4); Potassium 3.7 mmol/L (3.5-5.1); Sodium 143.0 mmol/L (136-145)
[2025-08-07 09:24] LABS: Prealbumin 8.7 mg/dl (20-40)
[2025-08-07] MEDS ORDERED: PHA DELIRIUM CONSULT PRN (09:34)
--- NOTE | 2025-08-07 09:43 | Orthopedic Progress Note ---
Date of Service August 07, 2025 Assessment & Plan (1) Femur fracture, right: Plan: POD #1-status post right hip hemiarthroplasty with Dr. Hugo Patient may weight-bear as tolerated with the assistance of a walker. Posterior hip precautions at all times. Abduction pillow between knees when in bed and standard pillow between knees when sitting out of chair x 8 weeks. Ice to right hip as needed for pain or swelling. SCDs while in house. NORY stockings bilateral lower extremities while in house. Heparin 5000 units SQ every 12 hours okay to resume this morning. Once she is discharged from the hospital may do aspirin 81 mg twice daily x 6 weeks after surgery. Continue pain control as per primary service. Continue PT and OT. Case management for disposition needs. Will continue to follow. Dr. Hugo present for today's visit. Will plan to change dressing tomorrow. Admission and Anticipated Discharge Date Admission Date: August 05, 2025 Tucker Salazar is sitting up in her bed. She is currently getting treatment from the physical therapist. She is tearful and crying. States that she has a lot of pain. Physical Exam Musculoskeletal: Exam of the right lower extremity: SCDs in place. No distal edema. She would not allow us to examine her leg, but her gown was lifted and her dressing is intact. Results & Data Vital Signs (Past 12 Hours) Vital Signs Temp Pulse Pulse Resp BP Pulse Ox O2 Del Method 08/07/25 09:31 Room Air 08/07/25 08:10 36.9 C 91 H 16 135/74 93 Room Air 08/07/25 05:51 71 08/07/25 02:49 36.3 C L 84 18 143/84 H 96 Oxymask 08/06/25 22:42 36.3 C L 80 18 135/76 94 Oxymask 08/06/25 22:04 74 O2 Flow Rate 08/07/25 09:31 08/07/25 08:10 08/07/25 05:51 08/07/25 02:49 4 08/06/25 22:42 4 08/06/25 22:04 Laboratory Results 08/07/25 08/06/25 Range/Units 06:49 10:19 WBC 15.87 H (4.8-10.8) K/ul RBC 3.87 L (4.20-5.40) M/uL Hgb 10.6 L (12.0-16.0) g/dL Hct 32.9 L (37.0-47.0) % MCV 85.0 (80.0-100.0) fL MCH 27.4 (25.0-34.0) pg MCHC 32.2 (32.0-36.0) g/dL RDW Std Deviation 47.8 H (36.4-46.3) fL RDW Coeff of Rajiv 15.5 H (11.5-14.5) % Plt Count 227 (130-400) K/uL MPV 10.6 (9.4-12.4) fL Immature Gran % (Auto) 0.4 % Neut % (Auto) 79.4 % Lymph % (Auto) 6.7 % Baxter % (Auto) 9.8 % Eos % (Auto) 3.0 % Baso % (Auto) 0.7 % Neut # (Auto) 12.61 H (1.40-6.50) K/uL Lymph # (Auto) 1.06 L (1.20-3.40) K/uL Baxter # (Auto) 1.55 H (0.11-0.59) K/uL Eos # (Auto) 0.48 (0.00-0.50) K/uL Baso # (Auto) 0.11 (0.00-0.20) K/uL Immature Gran # (Auto) 0.06 (0.01-0.20) K/uL Sodium 143 (136-145) mmol/L Potassium 3.7 (3.5-5.1) mmol/L Chloride 111 H (98-107) mmol/L Carbon Dioxide 25 (21-32) mmol/L Anion Gap 7 (3-11) BUN 19 (6-23) mg/dl Creatinine 0.83 (0.6-1.2) mg/dl Est Cr Clr Drug Dosing 44.6 ml/min eGFR 69.90 BUN/Creatinine Ratio 22.9 H (10-20) Glucose 116 H (70-99(Fasting)) mg/dl Calcium 8.3 L (8.6-10.3) mg/dl Phosphorus 3.1 (2.5-4.9) mg/dl Magnesium 1.9 (1.7-2.4) mg/dl B-Natriuretic Peptide 287 H (0-100) pg/ml Prealbumin 8.7 L (20-40) mg/dl 25-OH Vitamin D Total 30.6 (30-100) ng/ml
--- NOTE | 2025-08-07 12:38 | Hospitalist Progress Note ---
Date of Service August 07, 2025 Assessment & Plan (1) Femur fracture, right: Plan 84 yo F with PMH HTN, h/o stroke, dementia presented to ER from [facility] for unwitnessed fall today. Per staff she didn't seem to be returning to her baseline. Was noted to be hypoxic and sent to ER. Per patient's daughter at bedside patient has "good days and bad days" and states yesterday she seemed lethargic and wasn't very responsive. States her brother saw patient couple days before and she was more responsive. States patient with dementia and not oriented and at baseline does not recognize family members. [facility] patient with frequent falls and has known fall last year with left sided rib fractures. Denies any known fever or chills or cough. [facility] patient has had steady decline and last month her sertraline was increased secondary to tearfulness and decreased appetite and decreased oral intake. States since the increase of medication she seems less tearful. She is being managed for the following: Femur fracture, right: Unwitnessed Fall: Presented from [facility] for unwitnessed fall, didn't seem to be returning to baseline status and noted to be hypoxic by staff SHEATHER. Daughter reports history frequent falls. CT head: No acute findings Hip/pelvis xray: Acute fracture right femoral neck. Connelly catheter placed in ER, continue Pain control with scheduled Tylenol, lidocaine patch, oxycodone and morphine as needed moderate-severe pain s/p Right Hip Hemiarthroplasty, Cemented 08/06 Ortho on board, ok w/ chemo dvt px, hep started-->asp bid on dc. Hypoxia: In ER 83% on RA up to 91% on 5L and 96% on 6L oxymask CT chest: There are subacute/healing fractures of the right anterolateral 4th and 5th ribs. There are also subacute/healing fractures of the right posterior 9th through 11th ribs. Chronic/healed rib fractures are noted on the left. Cardiomegaly with intralobular septal thickening. This could represent acute versus chronic congestive change and clinical correlation will be required. There is elevation of the left hemidiaphragm with chronic dependent consolidation at the left lung base. This likely represents atelectasis. 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 This has been seen on prior chest x-rays. Negative respiratory biofire panel, Procal wnl. Has old and subacute rib fractures. Suspect atelectasis. Ddx: pneumonia Continue oxygen as needed Incentive spirometry if pt able to participate Likely not pneumonia, now on room air. #Abnormal Urinalysis: f/u urine culture. Rocephin for now pending culture #Tachycardia: Noted tachycardia in ER. Suspect sinus tachycardia likely from pain, resolved. Alzheimer dementia: Daughter reports noted decline past couple of months. Feels pt at recent baseline. Monitor for delirium. Continue sertraline. High risk for delirium. HTN (hypertension): Continue amlodipine Cerebellar stroke: resume aspirin Admit med tele DNR/DNI Follows with provider at [facility] for routine care pt/ot cm to assist w/ dc plan. Admission and Anticipated Discharge Date Admission Date: August 05, 2025 Subjective Patient was seen and examined at bedside. Patient was lying in bed, on RA, demented/confused appearance. ROS not able due to cognition status. Ox self Physical Exam Physical Exam: General: lying flat on bed, thin elderly female, appears demented/weak/frail. on RA Head: normocephalic, atraumatic Eyes: conjunctiva non-injected, anicteric ENT: normal inspection external ears, nose, mucous membranes moist Neck: supple, trachea midline Lungs: limited exam secondary to patient participation, diminished breath sounds CV: RRR, no pretibial edema Abd: normal BS, soft, no apparent tenderness to palpation Ext: RLE: Rt hip w/ clean dressing wo soakage. distal nv status wnl. Neuro: Alert, does not follow commands, noted moving extremities. Skin: warm, dry Results & Data Results & Data Vital Signs (Past 12 Hours) Vital Signs Temp Pulse Pulse Resp BP Pulse Ox O2 Del Method 08/07/25 11:01 37.4 C 87 16 136/75 93 Room Air 08/07/25 09:31 Room Air 08/07/25 08:10 36.9 C 91 H 16 135/74 93 Room Air 08/07/25 05:51 71 08/07/25 02:49 36.3 C L 84 18 143/84 H 96 Oxymask O2 Flow Rate 08/07/25 11:01 08/07/25 09:31 08/07/25 08:10 08/07/25 05:51 08/07/25 02:49 4
[2025-08-08 07:08] LABS: Hematocrit (blood only) 32.8 % (37.0-47.0); Hemoglobin 10.8 g/dL (12.0-16.0); Mean Corpuscular Hemoglobin 27.8 pg (25.0-34.0); Mean Corpuscular Volume 84.5 fL (80.0-100.0); Platelet Count 240 K/uL (130-400); RDW Standard Deviation 47.4 fL (36.4-46.3); Red Blood Count 3.88 M/uL (4.20-5.40); White Blood Count 16.93 K/ul (4.8-10.8)
[2025-08-08 07:27] LABS: Anion Gap 8.0 (3-11); Blood Urea Nitrogen 23.0 mg/dl (6-23); Calcium 8.5 mg/dl (8.6-10.3); Carbon Dioxide 24.0 mmol/L (21-32); Chloride 112.0 mmol/L (98-107); Creatinine Clr Calc Pharmacy 47.8 ml/min; Glucose 110.0 mg/dl (70-99(Fasting)); Magnesium 2.1 mg/dl (1.7-2.4); Potassium 4.1 mmol/L (3.5-5.1); Sodium 144.0 mmol/L (136-145)
--- NOTE | 2025-08-08 08:07 | Orthopedic Progress Note ---
Date of Service August 08, 2025 Assessment & Plan (1) Femur fracture, right: Plan: POD #2-status post right hip hemiarthroplasty with Dr. Hugo Patient may weight-bear as tolerated with the assistance of a walker. Posterior hip precautions at all times. Abduction pillow between knees when in bed and standard pillow between knees when sitting out of chair x 8 weeks. Ice to right hip as needed for pain or swelling. SCDs while in house. NORY stockings bilateral lower extremities while in house. Heparin 5000 units SQ every 12 hours okay to resume this morning. Once she is discharged from the hospital may do aspirin 81 mg twice daily x 6 weeks after surgery. Continue pain control as per primary service. Continue PT and OT. Case management for disposition needs. Will continue to follow. Dr. Hugo present for today's visit. Dressing changed to Silverlon, may shower over top, keep it in place until 2- week follow-up appointment. Admission and Anticipated Discharge Date Admission Date: August 05, 2025 Subjective No initial complaints. Moaned when rolled to amaya dressing. Physical Exam Physical Exam: Resting comfortably. RLE: Unable to fully assess due to cognition, not able to follow commands, unable to assess sensation BCR < 2 sec. Incision is clean, dry, intact, zenaida in place. Abduction pillow in place. Results & Data Vital Signs (Past 12 Hours) Vital Signs Temp Pulse Pulse Resp BP Pulse Ox Pulse Ox 08/08/25 05:00 90 08/08/25 03:00 36.9 C 83 18 132/71 93 08/08/25 01:00 92 08/07/25 22:40 37.2 C 91 H 18 154/79 H 92 08/07/25 22:10 101 H 08/07/25 21:00 92 08/07/25 20:15 O2 Del Method O2 Del Method 08/08/25 05:00 Room Air 08/08/25 03:00 Room Air 08/08/25 01:00 Room Air 08/07/25 22:40 Room Air 08/07/25 22:10 08/07/25 21:00 Room Air 08/07/25 20:15 Room Air Laboratory Results Laboratory Results WBC 16.93 K/ul (4.8-10.8) H 08/08/25 06:35 RBC 3.88 M/uL (4.20-5.40) L 08/08/25 06:35 Hgb 10.8 g/dL (12.0-16.0) L 08/08/25 06:35 POC Hgb 13.9 g/dl (12.0-16.0) 08/05/25 12:52 Hct 32.8 % (37.0-47.0) L 08/08/25 06:35 POC Hct 41 % (37-47) 08/05/25 12:52 MCV 84.5 fL (80.0-100.0) 08/08/25 06:35 MCH 27.8 pg (25.0-34.0) 08/08/25 06:35 MCHC 32.9 g/dL (32.0-36.0) 08/08/25 06:35 RDW Std Deviation 47.4 fL (36.4-46.3) H 08/08/25 06:35 RDW Coeff of Rajiv 15.4 % (11.5-14.5) H 08/08/25 06:35 Plt Count 240 K/uL (130-400) 08/08/25 06:35 MPV 11.2 fL (9.4-12.4) 08/08/25 06:35 Immature Gran % (Auto) 0.4 % 08/07/25 06:49 Neut % (Auto) 79.4 % 08/07/25 06:49 Lymph % (Auto) 6.7 % 08/07/25 06:49 Nye % (Auto) 9.8 % 08/07/25 06:49 Eos % (Auto) 3.0 % 08/07/25 06:49 Baso % (Auto) 0.7 % 08/07/25 06:49 Neut # (Auto) 12.61 K/uL (1.40-6.50) H 08/07/25 06:49 Lymph # (Auto) 1.06 K/uL (1.20-3.40) L 08/07/25 06:49 Nye # (Auto) 1.55 K/uL (0.11-0.59) H 08/07/25 06:49 Eos # (Auto) 0.48 K/uL (0.00-0.50) 08/07/25 06:49 Baso # (Auto) 0.11 K/uL (0.00-0.20) 08/07/25 06:49 Immature Gran # (Auto) 0.06 K/uL (0.01-0.20) 08/07/25 06:49 PT 10.2 Seconds (9.0-12.0) 08/05/25 12:49 INR 1.0 (0.9-1.1) 08/05/25 12:49 APTT 24 Seconds (21-31) 08/05/25 12:49 PTT Ratio 0.9 08/05/25 12:49 POC Sodium 142 mmol/L (135-144) 08/05/25 12:52 Sodium 144 mmol/L (136-145) 08/08/25 06:35 POC Potassium 3.9 mmol/L (3.3-5.0) 08/05/25 12:52 Potassium 4.1 mmol/L (3.5-5.1) 08/08/25 06:35 POC Chloride 108 mmol/L (101-112) 08/05/25 12:52 Chloride 112 mmol/L (98-107) H 08/08/25 06:35 Carbon Dioxide 24 mmol/L (21-32) 08/08/25 06:35 POC Total CO2 23 mmol/L (24-31) L 08/05/25 12:52 Anion Gap 8 (3-11) 08/08/25 06:35 POC Anion Gap 17.0 mmol/L (16-25) 08/05/25 12:52 POC BUN 24 mg/dl (7-18) H 08/05/25 12:52 BUN 23 mg/dl (6-23) 08/08/25 06:35 Creatinine 0.78 mg/dl (0.6-1.2) 08/08/25 06:35 POC Creatinine 0.9 mg/dl (0.6-1.3) 08/05/25 12:52 Est Cr Clr Drug Dosing 47.8 ml/min 08/08/25 06:35 eGFR 75.32 08/08/25 06:35 BUN/Creatinine Ratio 29.5 (10-20) H 08/08/25 06:35 Glucose 110 mg/dl (70-99(Fasting)) H 08/08/25 06:35 POC Glucose (other) 117 mg/dl (70-99) H 08/05/25 12:52 Calcium 8.5 mg/dl (8.6-10.3) L 08/08/25 06:35 POC Ioniz Calcium Yojana 1.15 mmol/l (1.12-1.32) 08/05/25 12:52 Phosphorus 3.1 mg/dl (2.5-4.9) 08/08/25 06:35 Magnesium 2.1 mg/dl (1.7-2.4) 08/08/25 06:35 Total Bilirubin 0.7 mg/dl (0.2-1.0) 08/05/25 12:49 AST 19 U/L (13-39) 08/05/25 12:49 ALT 15 U/L (7-52) 08/05/25 12:49 Alkaline Phosphatase 80 U/L (34-104) 08/05/25 12:49 B-Natriuretic Peptide 287 pg/ml (0-100) H 08/06/25 10:19 Total Protein 7.6 gm/dl (6.0-8.3) 08/05/25 12:49 Albumin 4.1 gm/dl (3.4-5.0) 08/05/25 12:49 Globulin 3.5 gm/dl (2.5-4.0) 08/05/25 12:49 Albumin/Globulin Ratio 1.2 (0.9-2) 08/05/25 12:49 Prealbumin 8.7 mg/dl (20-40) L 08/07/25 06:49 Lipase 14 U/L (11-82) 08/05/25 12:49 25-OH Vitamin D Total 30.6 ng/ml (30-100) 08/07/25 06:49 Procalcitonin 0.23 ng/ml (0-0.5) 08/06/25 06:34 Urine Color Yellow 08/05/25 14:26 Urine Appearance Clear (Clear) 08/05/25 14:26 Urine pH 7.0 (4.5-7.5) 08/05/25 14:26 Ur Specific [place] 1.033 (1.000-1.030) H 08/05/25 14:26 Urine Protein Trace (Negative) H 08/05/25 14:26 Urine Glucose (UA) Negative (Negative) 08/05/25 14:26 Urine Ketones Trace (Negative) H 08/05/25 14:26 Urine Blood Negative (Negative) 08/05/25 14: Urine Nitrite Negative (Negative) 08/05/25 14: Urine Bilirubin Negative (Negative) 08/05/25 14:26 Urine Urobilinogen Negative (Negative) 08/05/25 14:26 Ur Leukocyte Esterase 1+ (Negative) H 08/05/25 14:26 Urine WBC (Auto) 6-10 /hpf (0-5) H 08/05/25 14:26 Urine RBC (Auto) 0-2 /hpf (0-2) 08/05/25 14: U Hyaline Cast (Auto) 0-2 /lpf (0-2) 08/05/25 14:26 U Epithel Cells (Auto) 6-10 /hpf (0-2) H 08/05/25 14:26 Urine Bacteria (Auto) None Seen (None Seen) 08/05/25 14:26 Calcium Oxalate Crystal Present (None Prsent) A 08/05/25 14: Unidentified Crystals Present (None Prsent) A 08/05/25 14:26 Urine Comment 08/05/25 14:26 Adenovirus (PCR) Not Detected (NotDetected) 08/05/25 12:43 B. pertussis DNA (PCR) Not Detected (NotDetected) 08/05/25 12:43 B.parapertussis DNA PCR Not Detected (NotDetected) 08/05/25 12:43 C. pneumoniae DNA (PCR) Not Detected (NotDetected) 08/05/25 12:43 Coronavirus OC43 (PCR) Not Detected (NotDetected) 08/05/25 12:43 Coronavirus HKU1 (PCR) Not Detected (NotDetected) 08/05/25 12:43 Coronavirus 229E (PCR) Not Detected (NotDetected) 08/05/25 12:43 SARS-CoV-2 (PCR) Not Detected (NotDetected) 08/05/25 12:43 Coronavirus NL63 (PCR) Not Detected (NotDetected) 08/05/25 12:43 Human Metapneumovir PCR Not Detected (NotDetected) 08/05/25 12:43 Influenza Type A (PCR) Not Detected (NotDetected) 08/05/25 12:43 Influenza Type B (PCR) Not Detected (NotDetected) 08/05/25 12:43 M. pneumoniae (PCR) Not Detected (NotDetected) 08/05/25 12:43 Parainfluenza 1 (PCR) Not Detected (NotDetected) 08/05/25 12:43 Parainfluenza 2 (PCR) Not Detected (NotDetected) 08/05/25 12:43 Parainfluenza 3 (PCR) Not Detected (NotDetected) 08/05/25 12:43 Parainfluenza 4 (PCR) Not Detected (NotDetected) 08/05/25 12:43 RSV (PCR) Not Detected (NotDetected) 08/05/25 12:43 Entero/Rhino (PCR) Not Detected (NotDetected) 08/05/25 12:[address] 08/05/25 12:42 CT SCAN OF THE CHEST WITH IV CONTRAST CLINICAL HISTORY: Trauma. Hypoxia. COMPARISON STUDY: Chest x-ray dated 08/05/2025. Abdominal CT dated 08/18/2024. TECHNIQUE: Following the IV administration of 93 cc of Optiray 320, CT scan of the thorax was performed from the thoracic inlet to the upper abdomen. Images are reviewed in the axial, sagittal, and coronal planes. IV contrast was administered without complication. A dose lowering technique was utilized adhering to the principles of ALARA. The examination is degraded by motion artifact, as well as by streak artifact from the arms which could not be elevated above the chest. CT DOSE: 921.15 mGy.cm FINDINGS: Thyroid: Imaged portions of the thyroid gland are normal in size and attenuation. Thoracic aorta: There is atherosclerotic calcification of the thoracic aorta, which is normal in caliber and demonstrates standard 3-vessel arch anatomy. No dissection is seen. 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 This has been seen on prior chest x-rays. Pulmonary vasculature: The main pulmonary arteries appear dilated suggesting pulmonary artery hypertension. There are no filling defects identified in the central pulmonary vessels to indicate pulmonary embolus. Note that this exa mination was not protocoled for evaluation of the pulmonary arteries. Heart: The heart is enlarged and without pericardial effusion. There is coronary artery atherosclerosis. Lungs and pleural spaces: Evaluation of the lung parenchyma is degraded by motion artifact. The trachea and central airways are clear. No pneumothorax is seen. There is elevation of the left diaphragm and dense consolidation at the left lung base which is similar to previous. This likely represents atelectasis. Foci of scarring/atelectasis are seen throughout the right lung. Diffuse interlobular septal thickening is observed. Mediastinum: There is no mediastinal hematoma. Subcentimeter mediastinal lymph nodes are not pathologically enlarged by size criteria. Lizzy: Clear. Axillae: There is no axillary lymphadenopathy. Upper abdomen: Partially visualized upper abdominal viscera is within normal limits. Skeletal structures: The skeletal structures are osteopenic. There are subacute/healing fractures of the right anterolateral 4th and 5th ribs. There are also subacute/healing fractures of the right posterior 9th through 11th ribs. Chronic/healed rib fractures are noted on the left. Degenerative change and mild kyphoscoliosis is noted in the thoracic spine. Arthritic change is seen in the shoulders. No lytic or blastic bony lesions are seen. IMPRESSION: 1. There are subacute/healing right-sided rib fractures as above. 2. Cardiomegaly with intralobular septal thickening. This could represent acute versus chronic congestive change and clinical correlation will be required. 3. There is elevation of the left hemidiaphragm with chronic dependent consolidation at the left lung base. This likely represents atelectasis. Correlate clinically. 4. 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 This has been seen on prior chest x-rays. 5. Additional findings as above. ACT 112: Negative or not required by law. Electronically signed by: Hernán Bland M.D. 08/05/2025 1:49 PM Chest X-Ray 08/05/25 12:42 XR chest 1V portable CLINICAL HISTORY: Trauma COMPARISON STUDY: 08/15/2024 FINDINGS: Stable cardiomegaly with pulmonary vascular congestion. Inspiration is shallow. There is increased stranding at the left lung base. No other consolidation or pleural effusion. No pneumothorax. Skinfold artifact overlies the right lung. There are a few left-sided rib fractures of uncertain chronicity. IMPRESSION: 1. Left-sided rib fractures of uncertain chronicity with no pneumothorax seen. 2. Atelectasis versus pulmonary consolidation at the left lung base. ACT 112: Negative or not required by law. Electronically signed by: Baron Sanches M.D. 08/05/2025 1:[address] 08/05/25 12:42 CT head/brain wo con CLINICAL HISTORY: dementia, fall at [facility]. TECHNIQUE: Multiple axial CT images of the head were obtained without contrast. A dose lowering technique was utilized adhering to the principles of ALARA. COMPARISON: 08/15/2024 FINDINGS: There is stable mild prominence of the ventricles out of proportion to sulci, cerebral atrophy versus normal pressure hydrocephalus. Stable moderate chronic small vessel ischemic change. 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 No intracranial hemorrhage seen. No mass effect or midline shift. No skull fracture seen. Visualized paranasal sinuses and mastoid air cells are clear. IMPRESSION: No acute findings. ACT 112: Negative or not required by law. The above report was generated using voice recognition software. It may contain grammatical, syntax or spelling errors. Electronically signed by: Baron Sanches M.D. 08/05/2025 1:27 PM Hip/Pelvis X-Ray 08/05/25 12:46 XR hip RT 2V w pelvis CLINICAL HISTORY: hip fx COMPARISON: 08/15/2024 FINDINGS: Left femoral gamma nail is partially visualized and there is an old fracture proximal left femur. There is an acute mildly displaced mildly impacted fracture at the right femoral neck. No other fracture or dislocation seen. IMPRESSION: Acute fracture right femoral neck. ACT 112: Negative or not required by law. Electronically signed by: Barno Sanches M.D. 08/05/2025 1:22 PM Hip X-Ray 08/06/25 18:02 COMPARISON: Earlier today FINDINGS: Status post bipolar right hip replacement. Standard alignment. No fractures. Postsurgical changes in soft tissues. IMPRESSION: Satisfactory postsurgical changes. Electronically signed by Jesse Lemus 08-06-2025 7:17 PM
[2025-08-08 08:50] VITALS: RESP 17; TEMP 97.9
[2025-08-08] MEDS: ASPIRIN 81 MG ECTAB PO SCH (09:34)
--- NOTE | 2025-08-08 10:40 | Discharge Summary ---
Date of Service August 08, 2025 Admission HPI Per Admitting Provider Patient is 84 year old female with PMH HTN, h/o stroke, dementia presented to ER from [facility] for unwitnessed fall today. History obtained from patient's daughter secondary to cognitive status. It is reported patient had unwitnessed fall this morning. Per staff she didn't seem to be returning to her baseline. Was noted to be hypoxic and sent to ER. Per patient's daughter at bedside patient has "good days and bad days" and states yesterday she seemed lethargic and wasn't very responsive. States her brother saw patient couple days before and she was more responsive. States patient with dementia and not oriented and at baseline does not recognize family members. States patient with frequent falls and has known fall last year with left sided rib fractures. Denies any known fever or chills or cough. States patient has had steady decline and last month her sertraline was increased secondary to tearfulness and decreased appetite and decreased oral intake. States since the increase of medication she seems less tearful. Unable to obtain further ROM at this time. Admission Exam Per Admitting Provider General: +intermittent distress noted with wincing, appears to be in pain, lying on left side with her right leg over left in apparent position of comfort, thin elderly female Head: normocephalic, atraumatic Eyes: conjunctiva non-injected, anicteric ENT: normal inspection external ears, nose, mucous membranes moist Neck: supple, trachea midline Lungs: no respiratory distress noted on oxymask with O2 sat 95%, limited exam secondary to patient participation, diminished breath sounds CV: RRR, no pretibial edema Abd: normal BS, soft, no apparent tenderness to palpation Ext: RLE: +right leg draped over left leg in apparent position of comfort, leg appears to be shortened, +wincing with palpation of right hip, brisk capillary refill Neuro: Alert, appears to be in pain with wincing, does not follow commands, intermittent flailing of arms noted and quickly calms with gentle touch and talking/interaction, does not follow commands Skin: warm, dry Principal Diagnosis Femur fracture, right: Unwitnessed Fall: Discharge Exam General: lying flat on bed, thin elderly female, appears demented/weak/frail. on RA Head: normocephalic, atraumatic Eyes: conjunctiva non-injected, anicteric ENT: normal inspection external ears, nose, mucous membranes moist Neck: supple, trachea midline Lungs: limited exam secondary to patient participation, diminished breath sounds CV: RRR, no pretibial edema Abd: normal BS, soft, no apparent tenderness to palpation Ext: RLE: Rt hip w/ clean dressing wo soakage. distal nv status wnl. Neuro: Alert, does not follow commands, noted moving extremities. Skin: warm, dry Discharge Data Allergies Allergy/AdvReac Type Severity Reaction Status Date / Time No Known Allergies Allergy Unverified 08/15/24 14:41 Consultations 08/05/25 15:18 ED Decision to Admit Stat 08/05/25 17:23 Consult Anesthesiology Routine Consult Orthopedic Surgery Routine Procedures Performed Operation Date: 08/06/25 11:00 Actual Procedures p Right Hip Hemiarthroplasty, Cemented(Right) - Emmett Hugo MD Ordered Studies 08/05/25 12:42 CT chest diagnostic w con Stat CT head/brain wo con Stat Hospital Course (1) Femur fracture, right: Plan 84 yo F with PMH HTN, h/o stroke, dementia presented to ER from [facility] for unwitnessed fall today. Per staff she didn't seem to be returning to her baseline. Was noted to be hypoxic and sent to ER. Per patient's daughter at bedside patient has "good days and bad days" and states yesterday she seemed lethargic and wasn't very responsive. States her brother saw patient couple days before and she was more responsive. States patient with dementia and not oriented and at baseline does not recognize family members. States patient with frequent falls and has known fall last year with left sided rib fractures. Denies any known fever or chills or cough. States patient has had steady decline and last month her sertraline was increased secondary to tearfulness and decreas ed appetite and decreased oral intake. States since the increase of medication she seems less tearful. 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 Daughter reports history frequent falls. CT head: No acute findings Hip/pelvis xray: Acute fracture right femoral neck. Can MO jalloh. Pain control with scheduled Tylenol, OTC lidocaine patch, oxycodone as needed moderate-severe pain s/p Right Hip Hemiarthroplasty, Cemented 08/06 Ortho on board, -->asp bid on dc. f/u ortho in 2 weeks. Hypoxia: In ER 83% on RA up to 91% on 5L and 96% on 6L oxymask CT chest: There are subacute/healing fractures of the right anterolateral 4th and 5th ribs. There are also subacute/healing fractures of the right posterior 9th through 11th ribs. Chronic/healed rib fractures are noted on the left. Cardiomegaly with intralobular septal thickening. This could represent acute versus chronic congestive change and clinical correlation will be required. There is elevation of the left hemidiaphragm with chronic dependent consolidation at the left lung base. This likely represents atelectasis. 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 This has been seen on prior chest x-rays. Negative respiratory biofire panel, Procal wnl. Has old and subacute rib fractures. Suspect atelectasis. Ddx: pneumonia Continue oxygen as needed Incentive spirometry if pt able to participate Likely not pneumonia, now on room air. Resolved. #Abnormal Urinalysis: f/u urine culture. UCx w/ no growth, s/p 3 d rocephin #Tachycardia: Noted tachycardia in ER. Suspect sinus tachycardia likely from pain, resolved. Alzheimer dementia: Daughter reports noted decline past couple of months. Feels pt at recent baseline. Monitor for delirium. Continue sertraline. High risk for delirium. HTN (hypertension): Continue amlodipine Cerebellar stroke: resume aspirin Admit med tele DNR/DNI Follows with provider at [facility] for routine care pt/ot cm to assist w/ dc plan. Patient is being discharged to SNF with the following instructions at the point of discharge: Follow-up with your primary care physician within a week time and likely you will need labs CBC/CMP/magnesium/phosphorus. Follow-up with orthopedics in 2 weeks time upon discharge, you are being discharged on aspirin twice a day for 6 weeks, then continue your aspirin daily as prior after 6 weeks. Continue with physical therapy, taking medications as prescribed. Please make sure that you are able to get your medications today by calling your pharmacy before you leave the hospital so that your treatment continuity is not broken. Home Health Attestation I certify that this patient is under my care and that I, or a physicians assistant professor of business working with me, had a face to-face encounter that meets the home health [id number] encounter requirements with this patient. The encounter with the patient was in whole, or in part, for the following medical condition, which is the primary reason for home health care (list medical condition): I certify that, based on my findings, the following services are medically necessary home health services: My clinical findings support the need for the above services because: Further, I certify that my clinical findings support that this patient is homebound (i.e. absences from home require considerable and taxing effort and are for medical reasons or taoist services or infrequently or of short duration when for other reasons) because: Certification for Home Health Services: Based on the above findings, I certify that this patient is confined to the home and needs intermittent chcf care, physical therapy and/or speech therapy or continues to need occupational therapy. The patient is under my care, and I have initiated the establishment of the plan of care. This patient will be followed by a physician who will periodically review the plan of care. Total Time Total Time Spent Total Time Spent (In Minutes): 40 Discharge Plan Discharge Items Patient Disposition: Transfer Longterm Fac Reason For Visit: RIGHT HIP FRACTURE Discharge Diagnosis: Femur fracture, right: Unwitnessed Fall: Condition on Discharge: Fair Activity: Per Instructions section Weightbearing: Right weightbearing Non-emergency contact: Surgeon Call non-emergency contact if: you have any medication questions, your symptoms worsen, your pain is not controlled, your temperature is above 101, your wound has increased redness and your wound has increased drainage Follow-up/Referrals: Colleen Cardenas Krypton [Primary Care Provider] - Diet: Heart Healthy Addvalery Attending Provider Instructions: Follow-up with your primary care physician within a week time and likely you will need labs CBC/CMP/magnesium/phosphorus. Follow-up with orthopedics in 2 weeks time upon discharge, you are being discharged on aspirin twice a day for 6 weeks, then continue your aspirin daily as prior after 6 weeks. Continue with physical therapy, taking medications as prescribed. Please make sure that you are able to get your medications today by calling your pharmacy before you leave the hospital so that your treatment continuity is not broken. Addtl Proof Inspector Provider Instructions: Orthopedic instructions: Weight-bear as tolerated right lower extremity with the assistance of a walker at all times. Hip abduction pillow between knees when in bed or standard pillow between knees when in bed and when sitting in a chair x 8 weeks. Posterior hip precautions right hip x 8 weeks. Ice to right hip as needed for pain or swelling. Keep Silverlon dressing in place at all times. This will be removed at her first outpatient follow-up. Okay to shower with Silverlon dressing in place. May need to reinforce with foam tape if edges are peels or to avoid any picking at the incision NORY stockings bilateral lower extremities, knee-high. Keep on during the day and may remove at night for comfort or laundering. Allow for range of motion of her right knee and ankle as tolerated. Continue physical therapy and Occupational Therapy. Aspirin 81 mg twice daily for DVT prophylaxis x 6 weeks after surgery. Call [phone] with any increased pain, swelling, issues with the incision such as drainage, redness or warmth. Call to confirm or reschedule appointment. Follow-up with Dr. Hugo's office in approximately 2 weeks after her procedure as scheduled. Pending Studies at Discharge: No Stand-Alone Forms: My [employer] Skilled Items Patient informed of condition?: Yes DNR: Yes Discharge Level of Care: Skilled Communicable Disease: No Discharge Prognosis: Stable Lines: None Urinary Catheter: No Medications and DC Order Prescriptions: New oxycodone 5 mg tablet 5 mg PO BID PRN (Reason: pain) 5 Days Qty: 10 0RF Continued cetirizine 10 mg Tablet 10 mg PO DAILY amlodipine 2.5 mg Tablet 2.5 mg PO DAILY bisacodyl 10 mg Suppository 10 mg SC DAILY PRN (Reason: Constipation) Rx Instructions: day 4 of no bm [id number] [Headache Relief ([id number])] 250-250-65 mg Tablet 2 tab PO Q8H PRN (Reason: Headache) cholecalciferol (vitamin D3) 50 mcg (2,000 unit) Tablet 50 mcg PO DAILY Milk of Magnesia 30 ml PO DAILY PRN (Reason: Constipation) Rx Instructions: day 3 of no bm diclofenac sodium 1 % Gel 4 g TOPICAL QID Rx Instructions: apply to single knee, ankle, foot; for foot includes sole/toes/top of foot sertraline 150 mg Capsule 150 mg PO PM Rx Instructions: 1.5 tablets every evening Changed aspirin 81 mg Tablet,Delayed Release (Dr/Ec) 81 mg PO BID 42 Days Qty: 84 0RF Rx Instructions: aspirin 81 mg twice a day x 6 weeks, then daily. Discharge Orders: Discharge Order (Routine); Ordered 08/08/25 Ordered By: Abbi Salinas Admission Data Admit Date/Time: 08/05/25 15:29 Attending Provider: Abbi Salinas Admit Provider: Rehan Delarosa Primary Care Provider: Colleen Cardenas Krypton Other Providers: Colleen Cardenas Krypton; Rehan Delarosa; Nabil Morris; Emmett Hugo A
[2025-08-08 10:58] VITALS: BP 132/71; PULSE 88; O2SAT 92
== END 2025-08-08 12:48 | DRG 522 ==
LOC: ED 12:35 → 2N 15:29 → SUATTDRO 15:29 → 2N 16:49